=== PATIENT | female | born 1935 | race Caucasian/White ===

== ENCOUNTER 2018-05-29 04:29 | Inpatient (IN) | payer BC, MEDICARE ==
[~2018-05-29] VITALS: Ht 154.9 cm; Wt 64.0 kg
[2018-05-29] MEDS ORDERED: HYDR-963 PO (05:59)
[2018-05-29] MEDS ORDERED: OMEP20TA63 PO (05:59)
[2018-05-29] MEDS ORDERED: MIRT30TA PO (05:59)
[2018-05-29] MEDS ORDERED: RISP0.5T24 PO (05:59)
[2018-05-29] MEDS ORDERED: CYAN10005 PO (05:59)
[2018-05-29] MEDS ORDERED: LEVE500T6 PO (05:59)
[2018-05-29] MEDS ORDERED: DICY20TA3 PO (05:59)
[2018-05-29] MEDS ORDERED: QUET100T4 PO (05:59)
[2018-05-29] MEDS ORDERED: ASPI81TA50 PO (05:59)
[2018-05-29] MEDS ORDERED: AMLO2.5T2 PO (05:59)
[2018-05-29] MEDS ORDERED: SERT100T PO (05:59)
[2018-05-29] MEDS ORDERED: ISOS60TA2 PO (05:59)
[2018-05-29] MEDS ORDERED: QUET50TA5 PO (05:59)
[2018-05-29] MEDS ORDERED: TOLT2CAP PO (05:59)
[2018-05-29] MEDS ORDERED: DOCU-109 PO (05:59)
[2018-05-29] MEDS ORDERED: FURO-69 PO (05:59)
[2018-05-29] MEDS ORDERED: LISI40TA PO (05:59)
[2018-05-29] MEDS ORDERED: FERR325T14 PO (05:59)
[2018-05-29] MEDS ORDERED: CARV12.52 PO (05:59)
[2018-05-29] MEDS ORDERED: POTA20TA82 PO (05:59)
[2018-05-29] MEDS ORDERED: ATOR40TA59 PO (05:59)
[2018-05-29] MEDS ORDERED: MAGNESIUM HYDROXIDE 2,400 MG/30 ML ORAL.SUSP. PO PRN (06:00)
[2018-05-29] MEDS ORDERED: METHYL SALICYLATE/MENTHOL TOPICAL OINTMENT 29GM TUBE. TP PRN (06:00)
[2018-05-29] MEDS ORDERED: MAG HYDROX/AL HYDROX/SIMETH 30 ML ORAL.SUSP PO PRN ×2 (06:00→07:15)
[2018-05-29 06:09] VITALS: BP 159/78
[2018-05-29] MEDS ORDERED: PRED-220 PO (06:10)
[2018-05-29] MEDS ORDERED: NITR0.4T22 SL (06:10)
[2018-05-29] MEDS ORDERED: IPRA3AMP29 NEB (06:10)
[2018-05-29] MEDS ORDERED: ACET325T9 PO (06:10)
[2018-05-29] MEDS ORDERED: BENZ100C PO (06:10)
[2018-05-29] MEDS ORDERED: ALBU2.5V14 NEB (06:10)
[2018-05-29] MEDS ORDERED: MAG355OR22 PO (06:10)
[2018-05-29] MEDS ORDERED: MAGN400O7 PO (06:10)
[2018-05-29] MEDS ORDERED: HYDR-971 PO (06:10)
[2018-05-29] MEDS ORDERED: GUAI600T47 PO (06:10)
[2018-05-29] MEDS ORDERED: ALBUTEROL SULFATE 1.25 MG NEB PRN (07:15)
[2018-05-29] MEDS ORDERED: BENZONATATE 100 MG CAPSULE. PO PRN (07:15)
[2018-05-29] MEDS ORDERED: NITROGLYCERIN SUBLINGUAL 0.4 MG BOTTLE OF 25. SL PRN (07:15)
[2018-05-29] MEDS ORDERED: IPRATRPIUM/ALBUTEROL 0.5/2.5MG 3 ML NEBU. NEB PRN (07:15)
[2018-05-29] MEDS ORDERED: ACETAMINOPHEN 325 MG TABLET PO PRN (07:15)
[2018-05-29 07:25] LABS: BASO % 1 % (0-3); EOS # 0.1 x10^3/uL (0.0-0.7); EOS % 1 % (0-3); HEMATOCRIT 34.9 % (36.0-47.0); HEMOGLOBIN 11.6 g/dL (12.0-15.5); LYMPH # 0.8 x10^3/uL (1.0-4.8); LYMPH % 12 % (24-48); MEAN CORPUSCULAR HEMOGLOBIN 29 pg (25-35); MEAN CORPUSCULAR HGB CONC 33 g/dL (31-37); MEAN CORPUSCULAR VOLUME 87 fL (79-100); MONO # 0.6 x10^3/uL (0.0-1.1); MONO % 9 % (0-9); NEUT # 4.7 x10^3uL (1.8-7.7); NEUT % 77 % (31-73); PLATELET COUNT 98 x10^3/uL (140-400); RED BLOOD COUNT 4.01 x10^6/uL (3.50-5.40); RED CELL DISTRIBUTION WIDTH 15.2 % (11.5-14.5); WHITE BLOOD COUNT 6.2 x10^3/uL (4.0-11.0)
[2018-05-29 07:41] LABS: ALBUMIN 3.1 g/dL (3.4-5.0); ALBUMIN/GLOBULIN RATIO 0.9 (1.0-1.7); CALCIUM 9.3 mg/dL (8.5-10.1); CREATININE 0.9 mg/dL (0.6-1.0); GFR 60.1; MAGNESIUM 1.8 mg/dL (1.8-2.4); POTASSIUM 3.9 mmol/L (3.5-5.1); TOTAL BILIRUBIN 0.3 mg/dL (0.2-1.0); TOTAL PROTEIN 6.7 g/dL (6.4-8.2)
[2018-05-29] MEDS ORDERED: ALBUTEROL SULFATE 2.5 MG/3 ML NEBU. NEB PRN (07:45)
[2018-05-29] MEDS: predniSONE 10 MG TABLET PO SCH (10:55)
[2018-05-29] MEDS: ASPIRIN ENTERIC COATED 81 MG TABLET.DR. PO SCH (10:55)
[2018-05-29] MEDS: QUEtiapine 50 MG TABLET. PO SCH ×2 (10:55→13:37)
[2018-05-29] MEDS: PANTOPRAZOLE 40 MG TABLET. PO SCH (10:56)
[2018-05-29] MEDS: OXYBUTYNIN CHLORIDE 5 MG TABLET PO SCH ×3 (10:56→20:32)
[2018-05-29] MEDS: amLODIPine BESYLATE 2.5 MG TABLET PO SCH (10:56)
[2018-05-29] MEDS: SERTRALINE 100 MG TABLET. PO SCH (10:56)
[2018-05-29] MEDS: DOCUSATE SODIUM 100 MG CAPSULE PO SCH ×2 (10:56→20:32)
[2018-05-29] MEDS: levETIRAcetam 500 MG TABLET PO SCH ×2 (10:56→20:33)
[2018-05-29] MEDS: LISINOPRIL 20 MG TABLET PO SCH (10:57)
[2018-05-29] MEDS: ISOSORBIDE MONONITRATE ER 30 MG TAB.ER.24H PO SCH (10:57)
[2018-05-29] MEDS: DICYCLOMINE HCL 20 MG TABLET PO SCH (10:58)
[2018-05-29] MEDS: FUROSEMIDE 20 MG TABLET PO SCH ×2 (10:58→20:32)
[2018-05-29] MEDS: CARVEDILOL 12.5 MG TABLET PO SCH ×2 (10:58→17:04)
[2018-05-29] MEDS: POTASSIUM CHLORIDE 20 MEQ TABLET.ER. PO SCH ×2 (10:58→17:04)
[2018-05-29] MEDS: CYANOCOBALAMIN (VITAMIN B-12) 1,000 MCG TABLET. PO SCH (10:58)
[2018-05-29] MEDS: FERROUS SULFATE 325 MG TABLET. PO SCH ×2 (10:58→20:32)
[2018-05-29] MEDS: HYDROcodone/APAP 10/325 1 TAB TABLET PO SCH ×2 (10:59→20:33)
[2018-05-29 13:32] LABS: THYROID STIM HORMONE (TSH) 1.663 uIU/mL (0.358-3.740)
[2018-05-29 16:36] VITALS: BP 108/63
[2018-05-29 19:12] LABS: THYROXINE 3.7 ug/dL (4.5-12.0)
[2018-05-29 19:41] VITALS: BP 110/58
[2018-05-29] MEDS: QUEtiapine 100 MG TABLET. PO SCH (20:32)
[2018-05-29] MEDS: ATORVASTATIN CALCIUM 20 MG TABLET PO SCH (20:33)
[2018-05-29] MEDS: MIRTAZAPINE 30 MG TABLET PO SCH (20:34)
--- NOTE | 2018-05-29 20:44 | PDOC ---
Exam Note: Alek Note: Please also refer to the separate dictated note~for this date of service dictated separately.~Patient seen individually. Discussed the patient with Nursing staff reviewed the chart.~Reviewed interim history and current functioning. Reviewed vital signs,~Labs/ Radiology~and current medications noted below. Continue current treatment with the changes noted in the dictated addendum note Assessment: Vital Signs: Vital Signs Date Time Temp Pulse Resp B/P (MAP) Pulse Ox O2 Delivery O2 Flow Rate FiO2 05/29/18 20:33 16 91 05/29/18 19:41 97.8 74 110/58 (75) Room Air Labs: Laboratory Tests Test 05/29/18 07:00 White Blood Count 6.2 x10^3/uL (4.0-11.0) Red Blood Count 4.01 x10^6/uL (3.50-5.40) Hemoglobin 11.6 g/dL (12.0-15.5) L Hematocrit 34.9 % (36.0-47.0) L Mean Corpuscular Volume 87 fL (79-100) Mean Corpuscular Hemoglobin 29 pg (25-35) Mean Corpuscular Hemoglobin Concent 33 g/dL (31-37) Red Cell Distribution Width 15.2 % (11.5-14.5) H Platelet Count 98 x10^3/uL (140-400) L Neutrophils (%) (Auto) 77 % (31-73) H Lymphocytes (%) (Auto) 12 % (24-48) L Monocytes (%) (Auto) 9 % (0-9) Eosinophils (%) (Auto) 1 % (0-3) Basophils (%) (Auto) 1 % (0-3) Neutrophils # (Auto) 4.7 x10^3uL (1.8-7.7) Lymphocytes # (Auto) 0.8 x10^3/uL (1.0-4.8) L Monocytes # (Auto) 0.6 x10^3/uL (0.0-1.1) Eosinophils # (Auto) 0.1 x10^3/uL (0.0-0.7) Basophils # (Auto) 0.0 x10^3/uL (0.0-0.2) Sodium Level 141 mmol/L (136-145) Potassium Level 3.9 mmol/L (3.5-5.1) Chloride Level 106 mmol/L (98-107) Carbon Dioxide Level 25 mmol/L (21-32) Anion Gap 10 (6-14) Blood Urea Nitrogen 19 mg/dL (7-20) Creatinine 0.9 mg/dL (0.6-1.0) Estimated GFR (Cockcroft-Gault) 60.1 BUN/Creatinine Ratio 21 (6-20) H Glucose Level 100 mg/dL (70-99) H Calcium Level 9.3 mg/dL (8.5-10.1) Magnesium Level 1.8 mg/dL (1.8-2.4) Iron Level 47 ug/dL (50-170) L Total Iron Binding Capacity 235 ug/dL (250-450) L Iron Saturation 20 % (15-34) Total Bilirubin 0.3 mg/dL (0.2-1.0) Aspartate Amino Transferase (AST) 13 U/L (15-37) L Alanine Aminotransferase (ALT) 16 U/L (14-59) Alkaline Phosphatase 106 U/L (46-116) Total Protein 6.7 g/dL (6.4-8.2) Albumin 3.1 g/dL (3.4-5.0) L Albumin/Globulin Ratio 0.9 (1.0-1.7) L Triglycerides Level 124 mg/dL (0-150) Cholesterol Level 173 mg/dL (0-200) LDL Cholesterol, Calculated 76 mg/dL (0-100) VLDL Cholesterol, Calculated 24 mg/dL (0-40) Non-HDL Cholesterol Calculated 100 mg/dL (0-129) HDL Cholesterol 73 mg/dL (40-60) H Cholesterol/HDL Ratio 2.0 Vitamin B12 Level 835 pg/mL (247-911) 25-Hydroxy Vitamin D Total 13.2 ng/mL (30-100) L Thyroid Stimulating Hormone (TSH) 1.663 uIU/mL (0.358-3.740) Thyroxine (T4) 3.7 ug/dL (4.5-12.0) L Total Triiodothyronine (TT3) 87 ng/dL (71-180) Treponema pallidum Antibody Nonreactive (Nonreactive) Current Medications: Meds: Current Medications Acetaminophen (Tylenol) 650 mg PRN Q6HRS PRN PO PAIN / TEMP; Start 05/29/18 at 06:00 Multi-Ingredient Ointment (Analgesic [place]) 1 abel PRN QID PRN TP MUSCLE PAIN; Start 05/29/18 at 06:00 Al Hydroxide/Mg Hydroxide (Mylanta Plus Xs) 15 ml PRN AFTMEALHC PRN PO DYSPEPSIA; Start 05/29/18 at 06:00; Status Cancel Magnesium Hydroxide (Milk Of Magnesia) 2,400 mg PRN QHS PRN PO CONSTIPATION; Start 05/29/18 at 06:00; Stop 05/29/18 at 07:16; Status DC Mirtazapine (Remeron) 30 mg QHS PO Last administered on 05/29/18at 20:34; Start 05/29/18 at 21:00 Sertraline HCl (Zoloft) 200 mg DAILY PO Last administered on 05/29/18at 10:56; Start 05/29/18 at 09:00 Quetiapine Fumarate (SEROquel) 50 mg [id number] PO Last administered on 05/29/18at 13:37; Start 05/29/18 at 09:00 Quetiapine Fumarate (SEROquel) 100 mg QHS PO Last administered on 05/29/18at 20 :32; Start 05/29/18 at 21:00 Risperidone (RisperDAL) 0.5 mg QHS PO Last administered on 05/29/18at 20:32; Start 05/29/18 at 21:00 Acetaminophen (Tylenol) 650 mg PRN Q6HRS PRN PO PAIN; Start 05/29/18 at 07:15 ; Status Cancel Cyanocobalamin (Vitamin B-12) 1,000 mcg DAILY PO Last administered on at 10:58; Start 05/29/18 at 09:00 Ferrous Sulfate (Feosol) 325 mg BID PO Last administered on 05/29/18 20:32; Start 05/29/18 at 09:00 Furosemide (Lasix) 20 mg BID PO Last administered on 05/29/18at 20:32; Start 05/29/18 at 09:00 Guaifenesin (Mucinex Er) 600 mg PRN BID PRN PO COUGH; Start 05/29/18 at 07:15 Albuterol/ Ipratropium (Duoneb) 3 ml PRN Q4HRS PRN NEB SHORTNESS OF BREATH; Start 05/29/18 at 07:15 Magnesium Hydroxide (Milk Of Magnesia) 800 mg PRN Q6HRS PRN PO CONSTIPATION; Start 05/29/18 at 07:15 Nitroglycerin (Nitrostat) 0.4 mg PRN Q5MIN PRN SL CHEST PAIN; Start 05/29/18 at 07:15 Prednisone (Prednisone) 10 mg DAILY PO Last administered on 05/29/18at 10:55; Start 05/29/18 at 09:00 Non-Formulary Medication (Albuterol Sulfate (Albuterol Sulfate Conc Neb Soln)) 1.25 mg PRN Q6HRS PRN NEB SHORTNESS OF BREATH; Start 05/29/18 at 07:15; Status UNV Amlodipine Besylate (Norvasc) 2.5 mg DAILY PO Last administered on 05/29/18at 10:56; Start 05/29/18 at 09:00 Aspirin (Aspirin Enteric Coated) 81 mg [id number] PO Last administered on 05/29at 10:55; Start 05/29/18 at 08:00 Atorvastatin Calcium (Lipitor) 40 mg QHS PO Last administered on 05/29/18at 20: 33; Start 05/29/18 at 21:00 Benzonatate (Tessalon Perle) 200 mg PRN TID PRN PO COUGH; Start 05/29/18 at 07 :15 Carvedilol (Coreg) 12.5 mg BIDWMEALS PO Last administered on 05/29/18at 17:04; Start 05/29/18 at 08:00 Dicyclomine HCl (Bentyl) 20 mg DAILY PO Last administered on 05/29/18at 10:58; Start 05/29/18 at 09:00 Docusate Sodium (Colace) 100 mg BID PO Last administered on 05/29/18at 20:32; Start 05/29/18 at 09:00 Acetaminophen/ Hydrocodone Bitart (Lortab 10/325) 1 tab BID PO Last administered on 05/29/18at 20:33; Start 05/29/18 at 09:00 Acetaminophen/ Hydrocodone Bitart (Lortab 5/325) 1 tab PRN BID PRN PO PAIN; Start 05/29/18 at 07:30 Isosorbide Mononitrate (Imdur) 60 mg DAILY PO Last administered on 05/29/18at 10:57; Start 05/29/18 at 09:00 Levetiracetam (Keppra) 500 mg BID PO Last administered on 05/29/18at 20:33; Start 05/29/18 at 09:00 Lisinopril (Prinivil) 40 mg DAILY PO Last administered on 05/29/18at 10:57; Start 05/29/18 at 09:00 Al Hydroxide/Mg Hydroxide (Mylanta Plus Xs) 30 ml PRN Q2HR PRN PO INDIGESTION; Start 05/29/18 at 07:15 Pantoprazole Sodium (Protonix) 40 mg DAILYAC PO Last administered on at 10:56; Start 05/29/18 at 07:30 Potassium Chloride (Klor-Con) 20 meq BIDWMEALS PO Last administered on at 17:04; Start 05/29/18 at 08:00 Oxybutynin Chloride (Ditropan) 5 mg [id number] PO Last administered on 05/29/18at 20:32; Start 05/29/18 at 09:00 Albuterol Sulfate (Ventolin) 1.25 mg PRN Q6HRS PRN NEB SHORTNESS OF BREATH; Start 05/29/18 at 07:45 Vitamin D (Vitamin D3) 50,000 unit WEEKLY PO ; Start 05/30/18 at 09:00 Active Scripts Active Reported Albuterol Sulfate Conc Neb Soln (Albuterol Sulfate) 2.5 Mg/0.5 Ml Vial.neb 1.25 Mg NEB PRN Q6HRS PRN [place] 5-325 Tablet (Hydrocodone Bit/Acetaminophen) 1 Each Tablet 1 Tab PO PRN BID PRN Duoneb 0.5-3(2.5) Mg/3 Ml (Albuterol/Ipratropium) 3 Ml Ampul.neb 3 Ml NEB PRN Q4HRS PRN Tessalon Perle (Benzonatate) 100 Mg Capsule 200 Mg PO PRN TID PRN Mucinex (Guaifenesin) 600 Mg Tablet.er 600 Mg PO PRN BID PRN Antacid Liquid (Mag Hydrox/Al Hydrox/Simeth) 355 Ml Oral.susp 30 Ml PO PRN Q2HR PRN Milk Of Magnesia (Magnesium Hydroxide) 400 Mg/5 Ml Oral.susp 10 Ml PO PRN Q6HRS PRN Tylenol (Acetaminophen) 325 Mg Tablet 1-2 Tab PO PRN Q6HRS PRN NITROGLYCERIN SubLingual (Nitroglycerin) 0.4 Mg Tab.subl 0.4 Mg SL PRN Q5MIN PRN do not exceed 3 tabs per episode Prednisone 10 Mg Tablet 10 Mg PO DAILY Potassium Chloride 20 Meq Tablet.er 20 Meq PO BID Lasix (Furosemide) 20 Mg Tablet 20 Mg PO BID Seroquel (Quetiapine Fumarate) 100 Mg Tablet 100 Mg PO QHS Risperdal (Risperidone) 0.5 Mg Tablet 0.5 Mg PO QHS Isosorbide Mononitrate Er (Isosorbide Mononitrate) 60 Mg Tab.er.24h 60 Mg PO DAILY Norvasc (Amlodipine Besylate) 2.5 Mg Tablet 2.5 Mg PO DAILY Seroquel (Quetiapine Fumarate) 50 Mg Tablet 50 Mg PO BID Prilosec Otc (Omeprazole Magnesium) 20 Mg Tablet.dr 20 Mg PO DAILY [place] 10-325 Tablet (Hydrocodone Bit/Acetaminophen) 1 Each Tablet 1 Tab PO BID Levetiracetam 500 Mg Tablet 500 Mg PO BID Colace (Docusate Sodium) 100 Mg Capsule 100 Mg PO BID Remeron (Mirtazapine) 30 Mg Tablet 30 Mg PO QHS Carvedilol 12.5 Mg Tablet 12.5 Mg PO BID Vitamin B-12 (Cyanocobalamin (Vitamin B-12)) 1,000 Mcg Tablet 1,000 Mcg PO DAILY Lisinopril 40 Mg Tablet 40 Mg PO DAILY Ferrous Sulfate 325 Mg Tablet 325 Mg PO BID Atorvastatin Calcium 40 Mg Tablet 40 Mg PO QHS Detrol La (Tolterodine Tartrate) 2 Mg Cap.er.24h 2 Mg PO BID Zoloft (Sertraline Hcl) 100 Mg Tablet 200 Mg PO DAILY Aspir-Low (Aspirin) 81 Mg Tablet.dr 81 Mg PO DAILY Dicyclomine Hcl 20 Mg Tablet 20 Mg PO DAILY I have reviewed the current psychotropics carefully including drug interactions. Risk benefit ratio favors no change other than as noted in my dictated progress note. Diagnosis: Problems: (1) Anxiety disorder (2) Dementia, vascular, with delusions (3) Dementia, vascular, with depression (4) Major depressive disorder, recurrent episode JUAN MILLER MD May 29, 2018 20:44
[2018-05-29] MEDS ORDERED: risperiDONE 0.5 MG TABLET. PO SCH (21:00)
--- NOTE | 2018-05-29 22:12 | HP ---
ADMIT DATE: 05/29/2018 This note covers elements not covered in my initial note on 05/29/2018. IDENTIFYING DATA: The patient is an 82-year-old female, referred to us from the Emergency Room at [facility] where she presented from the [facility] after she attempted suicide with stabbing herself in the neck with a fork and received a significant gash wound. She has been depressed. believes her is trying to kill her since he is unable to have her home because she relates he states she cannot take care of her status post cerebrovascular accident. She has been at the facility for about 15 months. States this is no way to live and decided to end her life. This prompted her being transferred to the Emergency Room and then to us for inpatient psychiatric stabilization. CHIEF COMPLAINT: "Yes, I've been depressed. I need to go home." HISTORY OF PRESENT ILLNESS: The patient has a history of worsening symptoms of depression. She admits to feeling hopeless, helpless, worthless, believes there is no point in living because she cannot be at home since her cannot take care of her status post cerebrovascular accident. She has had some sleep and appetite changes, appeared somewhat paranoid at times, believes her is trying to kill her and then she attempted to stab herself in the neck with a fork. No active homicidal ideation. No clear history of bipolar disorder. She has had some short-term memory deficits, but reasonably cognitively intact. PAST PSYCHIATRIC HISTORY: As above. MEDICAL HISTORY: Positive for COPD, hypertension, status post cerebrovascular accident. Accu-Cheks: None. CODE STATUS: DNR. ALLERGIES: PHENERGAN AND ADHESIVE TAPE. Diet is regular. Ambulates in wheelchair, with times to assist. Urinalysis negative prior to admission. CURRENT PSYCHOTROPICS: Zoloft 100 mg a day, Remeron 30 mg at bedtime, Seroquel 50 b.i.d., Risperdal 0.5 mg at bedtime, Seroquel 100 mg at bedtime. FAMILY HISTORY: Noncontributory. SOCIAL HISTORY: No alcohol, drug abuse, physical, sexual or elder abuse history is noted. She is not known to be a perpetrator. She states she worked in a [employer] for about 38 years. Never smoked, never had any alcohol, has 4 children, 2 girls and 2 boys. REACTION TO HOSPITALIZATION: The patient accepting of it. ASSETS: Stable living at the facility, reasonably cognitively intact, supportive . MENTAL STATUS EXAM: The patient was seen individually on the evening of 05/29/2018. She is oriented to herself, knew it was 05/2018, but believed the date was 16. She knew it was a . She knew the president was president Indira, able to do one step in serial sevens and then no more, spelled world forward with no error, backward with 3 errors. Speech coherent, abstraction fair, computation is noted to be impaired. Mood is depressed, anxious. Affect is mood congruent. No active suicidal or homicidal ideation. LABORATORY DATA: Reviewed. IMPRESSION: Major depressive disorder, recurrent, severe; anxiety disorder, unspecified; major neurocognitive disorder, Alzheimer, vascular with depression, delusions. Rest as above. PLAN: Admit to Geropsychiatry Unit at [facility]. I will see the patient daily individually from a psychiatric standpoint, medical followup with Dr. Rouse/Dr. Marsh. Continue the patient on her current psychotropics. Consider tapering off the Risperdal given her status post cerebrovascular accident status and to avoid using 2 atypical antipsychotics, may consider changing Zoloft to Cymbalta. We will make further decisions post baseline assessment. Estimated length of stay is 10-12 days. DISPOSITION: Back to [facility]. JUAN MILLER MD DR: DELILAH/nathan JOB#: [id number] / [id number]
--- NOTE | 2018-05-29 22:29 | RAD ---
EXAM: Frontal pelvis with bilateral two-view hip. HISTORY: Fall. COMPARISON: None. FINDINGS: There are limitations from overpenetration. Osteopenia is at least mild. No displaced pelvic fractures are identified. No femoral fractures seen bilaterally. The joint spaces of both hips are mildly narrowed. Alignment is maintained. There are mild degenerative changes of the lower lumbar spine. Cholecystectomy clips are noted. IMPRESSION: 1. No fracture. 2. Mild bilateral hip osteoarthritis. Electronically signed by: Jaydon Ashraf MD (05/29/2018 10:27 PM) [facility]
[2018-05-30 02:08] LABS: HEMOGLOBIN A1C 5.2 % (4.8-5.6)
[2018-05-30] MEDS: ACETAMINOPHEN 325 MG TABLET PO PRN (05:37)
[2018-05-30 06:06] VITALS: BP 131/68
[2018-05-30] MEDS: SERTRALINE 100 MG TABLET. PO SCH (08:11)
[2018-05-30] MEDS: amLODIPine BESYLATE 2.5 MG TABLET PO SCH (08:11)
[2018-05-30] MEDS: levETIRAcetam 500 MG TABLET PO SCH ×2 (08:11→20:19)
[2018-05-30] MEDS: predniSONE 10 MG TABLET PO SCH (08:11)
[2018-05-30] MEDS: CYANOCOBALAMIN (VITAMIN B-12) 1,000 MCG TABLET. PO SCH (08:11)
[2018-05-30] MEDS: POTASSIUM CHLORIDE 20 MEQ TABLET.ER. PO SCH ×2 (08:11→18:28)
[2018-05-30] MEDS: FUROSEMIDE 20 MG TABLET PO SCH ×2 (08:11→20:20)
[2018-05-30] MEDS: PANTOPRAZOLE 40 MG TABLET. PO SCH (08:12)
[2018-05-30] MEDS: DOCUSATE SODIUM 100 MG CAPSULE PO SCH ×2 (08:12→20:19)
[2018-05-30] MEDS: OXYBUTYNIN CHLORIDE 5 MG TABLET PO SCH ×3 (08:12→20:18)
[2018-05-30] MEDS: DICYCLOMINE HCL 20 MG TABLET PO SCH (08:12)
[2018-05-30] MEDS: QUEtiapine 100 MG TABLET. PO SCH ×2 (08:12→20:20)
[2018-05-30] MEDS: ASPIRIN ENTERIC COATED 81 MG TABLET.DR. PO SCH (08:12)
[2018-05-30] MEDS: CARVEDILOL 12.5 MG TABLET PO SCH ×2 (08:12→18:29)
[2018-05-30] MEDS: HYDROcodone/APAP 10/325 1 TAB TABLET PO SCH ×2 (08:13→20:19)
[2018-05-30] MEDS: ISOSORBIDE MONONITRATE ER 30 MG TAB.ER.24H PO SCH (08:13)
[2018-05-30] MEDS: FERROUS SULFATE 325 MG TABLET. PO SCH ×2 (08:13→20:19)
[2018-05-30] MEDS: LISINOPRIL 20 MG TABLET PO SCH (08:16)
[2018-05-30] MEDS: QUEtiapine 50 MG TABLET. PO SCH ×2 (08:16→14:18)
[2018-05-30] MEDS ORDERED: CHOLECALCIFEROL (VITAMIN D3) 50,000 UNIT CAPSULE PO SCH (09:00)
[2018-05-30 13:09] LABS: BACTERIA,URINE MANY /HPF (0-FEW); BILIRUBIN,URINE NEG (NEG); CLARITY,URINE CLOUDY; COLOR,URINE YELLOW; GLUCOSE,URINE NEG (NEG); NITRITE,URINE POS (NEG); SQUAMOUS EPITHELIAL CELL,UR FEW /LPF; UROBILINOGEN,URINE 0.2 mg/dL (0.2 mg/dL); WBC,URINE >40 /HPF (0-4)
[2018-05-30] MEDS: HYDROcodone/APAP 5/325MG 1 TAB TABLET PO PRN (14:17)
--- NOTE | 2018-05-30 14:26 | PDOC2 ---
CONSULT Date of Admission DATE: 05/29/18 Reason for Consult: Medical management Referring Physician: Dr Boland Chief Complaint Suicidal ideation Source: Caregiver, Chart review, Patient History of Present Illness: Patient is an 82-year-old female admitted to the [facility] unit directly from [place] emergency Department for worsening dementia with depression and suicide attempt. Records indicate that for the past month patient has become more depressed and has vocalized that she thinks her is trying to kill her. On the day of admission patient reportedly tried to stab herself in the neck with a fork. She was medically cleared to the emergency department and admitted to [facility] unit for further evaluation and treatment. I find the patient sleeping in her bed, she rouses easily to verbal stimuli. She is alert and oriented 3 and says that she has been very depressed since her second stroke. 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 She says that he said some very mean things which were very hurtful to her including that he said he should kill her. She is very emotional and becomes tearful while discussing this, stating that if her spouse will have her back she has nothing left to live for. She does also complain of some left anterior rib pain. She says she fell and hit that area on a counter a few weeks ago and she's had persistent left-sided rib pain since. She says no imaging has been done we will check a rib series. Denies trouble breathing, cough, or hemoptysis. Last night the patient slid from her wheelchair to her buttock at approximately 7:30 PM, she was complaining of some hip pain however bilateral hips and pelvis imaging were negative. [facility] staff feels the patient "placed herself on the floor " acting out. Medically she has history of COPD, hypertension, and CVA as stated. Her labs fairly unremarkable, hemoglobin 11.6 normocytic, vitamin D level low at 13.2 will initiate supplementation, abnormal iron studies will check a ferritin. Urine was grossly positive for infection will treat and await culture results. Cardiovascular: HTN Pulmonary: COPD CENTRAL NERVOUS SYSTEM: CVA (2, left hemiparesis) Psych: Depression (dementia, suicidal ideation, paranoid, delusional) Past Surgical History: No pertinent history Smoke: No ALCOHOL: none Drugs: None Current Medications Current Medications Acetaminophen (Tylenol) 650 mg PRN Q6HRS PRN PO PAIN / TEMP Last administered on 05/30/18at 05:37; Start 05/29/18 at 06:00 Multi-Ingredient Ointment (Analgesic [place]) 1 abel PRN QID PRN TP MUSCLE PAIN; Start 05/29/18 at 06:00 Al Hydroxide/Mg Hydroxide (Mylanta Plus Xs) 15 ml PRN AFTMEALHC PRN PO DYSPEPSIA; Start 05/29/18 at 06:00; Status Cancel Magnesium Hydroxide (Milk Of Magnesia) 2,400 mg PRN QHS PRN PO CONSTIPATION; Start 05/29/18 at 06:00; Stop 05/29/18 at 07:16; Status DC Mirtazapine (Remeron) 30 mg QHS PO Last administered on 05/29/18at 20:34; Start 05/29/18 at 21:00 Sertraline HCl (Zoloft) 200 mg DAILY PO Last administered on 05/30/18at 08:11; Start 05/29/18 at 09:00 Quetiapine Fumarate (SEROquel) 50 mg [id number] PO Last administered on 05/30/18at 08:16; Start 05/29/18 at 09:00 Quetiapine Fumarate (SEROquel) 100 mg QHS PO Last administered on 05/29/18at 20 :32; Start 05/29/18 at 21:00 Risperidone (RisperDAL) 0.5 mg QHS PO Last administered on 05/29/18at 20:32; Start 05/29/18 at 21:00 Acetaminophen (Tylenol) 650 mg PRN Q6HRS PRN PO PAIN; Start 05/29/18 at 07:15 ; Status Cancel Cyanocobalamin (Vitamin B-12) 1,000 mcg DAILY PO Last administered on at 08:11; Start 05/29/18 at 09:00 Ferrous Sulfate (Feosol) 325 mg BID PO Last administered on 05/30/18at 08:13; Start 05/29/18 at 09:00 Furosemide (Lasix) 20 mg BID PO Last administered on 05/30/18at 08:11; Start 05/29/18 at 09:00 Guaifenesin (Mucinex Er) 600 mg PRN BID PRN PO COUGH; Start 05/29/18 at 07:15 Albuterol/ Ipratropium (Duoneb) 3 ml PRN Q4HRS PRN NEB SHORTNESS OF BREATH; Start 05/29/18 at 07:15 Magnesium Hydroxide (Milk Of Magnesia) 800 mg PRN Q6HRS PRN PO CONSTIPATION; Start 05/29/18 at 07:15 Nitroglycerin (Nitrostat) 0.4 mg PRN Q5MIN PRN SL CHEST PAIN; Start 05/29/18 at 07:15 Prednisone (Prednisone) 10 mg DAILY PO Last administered on 05/30/18 08:11; Start 05/29/18 at 09:00 Non-Formulary Medication (Albuterol Sulfate (Albuterol Sulfate Conc Neb Soln)) 1.25 mg PRN Q6HRS PRN NEB SHORTNESS OF BREATH; Start 05/29/18 at 07:15; Status UNV Amlodipine Besylate (Norvasc) 2.5 mg DAILY PO Last administered on 05/30/18at 08:11; Start 05/29/18 at 09:00 Aspirin (Aspirin Enteric Coated) 81 mg [id number] PO Last administered on 05/30at 08:12; Start 05/29/18 at 08:00 Atorvastatin Calcium (Lipitor) 40 mg QHS PO Last administered on 05/29/18at 20: 33; Start 05/29/18 at 21:00 Benzonatate (Tessalon Perle) 200 mg PRN TID PRN PO COUGH; Start 05/29/18 at 07 :15 Carvedilol (Coreg) 12.5 mg BIDWMEALS PO Last administered on 05/30/18at 08:12; Start 05/29/18 at 08:00 Dicyclomine HCl (Bentyl) 20 mg DAILY PO Last administered on 05/30/18at 08:12; Start 05/29/18 at 09:00 Docusate Sodium (Colace) 100 mg BID PO Last administered on 05/30/18at 08:12; Start 05/29/18 at 09:00 Acetaminophen/ Hydrocodone Bitart (Lortab 10/325) 1 tab BID PO Last administered on 05/30/18at 08:13; Start 05/29/18 at 09:00 Acetaminophen/ Hydrocodone Bitart (Lortab 5/325) 1 tab PRN BID PRN PO PAIN; Start 05/29/18 at 07:30 Isosorbide Mononitrate (Imdur) 60 mg DAILY PO Last administered on 05/30/18at 08:13; Start 05/29/18 at 09:00 Levetiracetam (Keppra) 500 mg BID PO Last administered on 05/30/18at 08:11; Start 05/29/18 at 09:00 Lisinopril (Prinivil) 40 mg DAILY PO Last administered on 05/30/18at 08:16; Start 05/29/18 at 09:00 Al Hydroxide/Mg Hydroxide (Mylanta Plus Xs) 30 ml PRN Q2HR PRN PO INDIGESTION; Start 05/29/18 at 07:15 Pantoprazole Sodium (Protonix) 40 mg DAILYAC PO Last administered on at 08:12; Start 05/29/18 at 07:30 Potassium Chloride (Klor-Con) 20 meq BIDWMEALS PO Last administered on at 08:11; Start 05/29/18 at 08:00 Oxybutynin Chloride (Ditropan) 5 mg [id number] PO Last administered on 05/30/18at 08:12; Start 05/29/18 at 09:00 Albuterol Sulfate (Ventolin) 1.25 mg PRN Q6HRS PRN NEB SHORTNESS OF BREATH; Start 05/29/18 at 07:45 Vitamin D (Vitamin D3) 50,000 unit WEEKLY PO Last administered on 05/30/18at 08 :16; Start 05/30/18 at 09:00 Active Scripts Active Reported Albuterol Sulfate Conc Neb Soln (Albuterol Sulfate) 2.5 Mg/0.5 Ml Vial.neb 1.25 Mg NEB PRN Q6HRS PRN [place] 5-325 Tablet (Hydrocodone Bit/Acetaminophen) 1 Each Tablet 1 Tab PO PRN BID PRN Duoneb 0.5-3(2.5) Mg/3 Ml (Albuterol/Ipratropium) 3 Ml Ampul.neb 3 Ml NEB PRN Q4HRS PRN Tessalon Perle (Benzonatate) 100 Mg Capsule 200 Mg PO PRN TID PRN Mucinex (Guaifenesin) 600 Mg Tablet.er 600 Mg PO PRN BID PRN Antacid Liquid (Mag Hydrox/Al Hydrox/Simeth) 355 Ml Oral.susp 30 Ml PO PRN Q2HR PRN Milk Of Magnesia (Magnesium Hydroxide) 400 Mg/5 Ml Oral.susp 10 Ml PO PRN Q6HRS PRN Tylenol (Acetaminophen) 325 Mg Tablet 1-2 Tab PO PRN Q6HRS PRN NITROGLYCERIN SubLingual (Nitroglycerin) 0.4 Mg Tab.subl 0.4 Mg SL PRN Q5MIN PRN do not exceed 3 tabs per episode Prednisone 10 Mg Tablet 10 Mg PO DAILY Potassium Chloride 20 Meq Tablet.er 20 Meq PO BID Lasix (Furosemide) 20 Mg Tablet 20 Mg PO BID Seroquel (Quetiapine Fumarate) 100 Mg Tablet 100 Mg PO QHS Risperdal (Risperidone) 0.5 Mg Tablet 0.5 Mg PO QHS Isosorbide Mononitrate Er (Isosorbide Mononitrate) 60 Mg Tab.er.24h 60 Mg PO DAILY Norvasc (Amlodipine Besylate) 2.5 Mg Tablet 2.5 Mg PO DAILY Seroquel (Quetiapine Fumarate) 50 Mg Tablet 50 Mg PO BID Prilosec Otc (Omeprazole Magnesium) 20 Mg Tablet.dr 20 Mg PO DAILY [place] 10-325 Tablet (Hydrocodone Bit/Acetaminophen) 1 Each Tablet 1 Tab PO BID Levetiracetam 500 Mg Tablet 500 Mg PO BID Colace (Docusate Sodium) 100 Mg Capsule 100 Mg PO BID Remeron (Mirtazapine) 30 Mg Tablet 30 Mg PO QHS Carvedilol 12.5 Mg Tablet 12.5 Mg PO BID Vitamin B-12 (Cyanocobalamin (Vitamin B-12)) 1,000 Mcg Tablet 1,000 Mcg PO DAILY Lisinopril 40 Mg Tablet 40 Mg PO DAILY Ferrous Sulfate 325 Mg Tablet 325 Mg PO BID Atorvastatin Calcium 40 Mg Tablet 40 Mg PO QHS Detrol La (Tolterodine Tartrate) 2 Mg Cap.er.24h 2 Mg PO BID Zoloft (Sertraline Hcl) 100 Mg Tablet 200 Mg PO DAILY Aspir-Low (Aspirin) 81 Mg Tablet.dr 81 Mg PO DAILY Dicyclomine Hcl 20 Mg Tablet 20 Mg PO DAILY Allergies: Coded Allergies: adhesive (Verified Allergy, Intermediate, 05/29/18) adhesive tape (Verified Allergy, Intermediate, 05/29/18) promethazine (Verified Allergy, Intermediate, 05/29/18) Review of Systems: Constitutional: No fever or chills Eyes: No eye pain or blurred vision Skin: No rash or itching Cardiovascular: No chest pain, syncope, palpitations, dyspnea on exertion, or edema Respiratory: No cough or difficulty breathing Gastrointestinal: No nausea, vomiting, or abdominal pain Neurologic: No headaches positive left hemiparesis Endocrine: No heat or cold intolerance Genitourinary: No incontinence or hematuria Musculoskeletal: See history of present illness Lymphatics: No enlarged lymph nodes Psychiatric: See history of present illness Physical Exam: Gen.: Alert, depressed and emotionally labile, no apparent distress HEENT: Normocephalic atraumatic, PERRLA EOMI, no scleral icterus, oral mucosa pink and moist Neck: Supple, no lymphadenopathy, nontender Cardiovascular: Normal S1 and S2 no murmurs Pulmonary: Lungs are clear bilaterally with good air movement no respiratory distress, left anterior chest wall tenderness no palpable bony deformity, skin tenting, or bruising Abdomen: Soft nontender non-distended, bowel sounds present no masses Extremities: No clubbing, cyanosis or edema Neuro: Alert and oriented 3, cranial nerves II through XII grossly intact, left hemiparesis Skin: Warm, dry VITALS Vital Signs Date Time Temp Pulse Resp B/P (MAP) Pulse Ox O2 Delivery O2 Flow Rate FiO2 05/30/18 08:16 73 131/68 05/30/18 06:06 97.2 18 95 05/29/18 19:41 Room Air Labs Laboratory Tests Test 05/29/18 07:00 05/30/18 11:55 White Blood Count 6.2 x10^3/uL (4.0-11.0) Red Blood Count 4.01 x10^6/uL (3.50-5.40) Hemoglobin 11.6 g/dL (12.0-15.5) Hematocrit 34.9 % (36.0-47.0) Mean Corpuscular Volume 87 fL (79-100) Mean Corpuscular Hemoglobin 29 pg (25-35) Mean Corpuscular Hemoglobin Concent 33 g/dL (31-37) Red Cell Distribution Width 15.2 % (11.5-14.5) Platelet Count 98 x10^3/uL (140-400) Neutrophils (%) (Auto) 77 % (31-73) Lymphocytes (%) (Auto) 12 % (24-48) Monocytes (%) (Auto) 9 % (0-9) Eosinophils (%) (Auto) 1 % (0-3) Basophils (%) (Auto) 1 % (0-3) Neutrophils # (Auto) 4.7 x10^3uL (1.8-7.7) Lymphocytes # (Auto) 0.8 x10^3/uL (1.0-4.8) Monocytes # (Auto) 0.6 x10^3/uL (0.0-1.1) Eosinophils # (Auto) 0.1 x10^3/uL (0.0-0.7) Basophils # (Auto) 0.0 x10^3/uL (0.0-0.2) Sodium Level 141 mmol/L (136-145) Potassium Level 3.9 mmol/L (3.5-5.1) Chloride Level 106 mmol/L (98-107) Carbon Dioxide Level 25 mmol/L (21-32) Anion Gap 10 (6-14) Blood Urea Nitrogen 19 mg/dL (7-20) Creatinine 0.9 mg/dL (0.6-1.0) Estimated GFR (Cockcroft-Gault) 60.1 BUN/Creatinine Ratio 21 (6-20) Glucose Level 100 mg/dL (70-99) Hemoglobin A1c 5.2 % (4.8-5.6) Calcium Level 9.3 mg/dL (8.5-10.1) Magnesium Level 1.8 mg/dL (1.8-2.4) Iron Level 47 ug/dL (50-170) Total Iron Binding Capacity 235 ug/dL (250-450) Iron Saturation 20 % (15-34) Total Bilirubin 0.3 mg/dL (0.2-1.0) Aspartate Amino Transf (AST/SGOT) 13 U/L (15-37) Alanine Aminotransferase (ALT/SGPT) 16 U/L (14-59) Alkaline Phosphatase 106 U/L (46-116) Total Protein 6.7 g/dL (6.4-8.2) Albumin 3.1 g/dL (3.4-5.0) Albumin/Globulin Ratio 0.9 (1.0-1.7) Triglycerides Level 124 mg/dL (0-150) Cholesterol Level 173 mg/dL (0-200) LDL Cholesterol, Calculated 76 mg/dL (0-100) VLDL Cholesterol, Calculated 24 mg/dL (0-40) Non-HDL Cholesterol Calculated 100 mg/dL (0-129) HDL Cholesterol 73 mg/dL (40-60) Cholesterol/HDL Ratio 2.0 Vitamin B12 Level 835 pg/mL (247-911) 25-Hydroxy Vitamin D Total 13.2 ng/mL (30-100) Thyroid Stimulating Hormone (TSH) 1.663 uIU/mL (0.358-3.740) Thyroxine (T4) 3.7 ug/dL (4.5-12.0) Total Triiodothyronine 87 ng/dL (71-180) Treponema pallidum Antibody Nonreactive (Nonreactive) Urine Collection Type Unknown Urine Color Yellow Urine Clarity Cloudy Urine pH 5.0 Urine Specific [place] 1.010 Urine Protein Neg (NEG-TRACE) Urine Glucose (UA) Neg mg/dL (NEG) Urine Ketones (Stick) Neg mg/dL (NEG) Urine Blood Small (NEG) Urine Nitrite Pos (NEG) Urine Bilirubin Neg (NEG) Urine Urobilinogen Dipstick 0.2 mg/dL (0.2 mg/dL) Urine Leukocyte Esterase Large (NEG) Urine RBC 1-2 /HPF (0-2) Urine WBC >40 /HPF (0-4) Urine Squamous Epithelial Cells Few /LPF Urine Bacteria Many /HPF (0-FEW) Assessment/Plan In general this is an 82-year-old female with a few chronic medical problems which appear to be well controlled on current medications and dosages. We'll check left rib series to rule out fracture and initiate vitamin D supplementation. Initiate antibiotics for UTI and await culture, check a ferritin level with abnormal iron studies. We'll continue to follow and offer treatments as indicated. Thank you, Dr. Boland, for allowing me to participate in the care of your patient. TORIBIO HODGE DO May 30, 2018 14:26
--- NOTE | 2018-05-30 15:20 | RAD ---
Left RIBS with chest, 05/30/2018: HISTORY: Fall, pain The bony structures are demineralized which limits the sensitivity of this exam. No acute rib fracture is identified. There is no evidence of underlying pneumothorax, hemothorax or pulmonary infiltrate. The heart is at the upper limits of normal in size. There is extensive calcific plaquing the aorta. Coronary artery calcifications are present. A right Port-A-Cath extends into the superior vena cava. Moderate multilevel degenerative change is evident in the spine. IMPRESSION: No acute left rib abnormality is detected. Electronically signed by: Rubén Ogden MD (05/30/2018 3:17 PM) [facility]
[2018-05-30 15:46] VITALS: BP 101/53
[2018-05-30] MEDS: SMZ/TMP 800/160MG TABLET. PO SCH (20:18)
[2018-05-30] MEDS: LACTOBACILLUS RHAMNOSUS GG 1 CAPSULE. PO SCH (20:18)
[2018-05-30] MEDS: MIRTAZAPINE 30 MG TABLET PO SCH (20:19)
[2018-05-30] MEDS: ATORVASTATIN CALCIUM 20 MG TABLET PO SCH (20:20)
[2018-05-30] MEDS: risperiDONE 0.25 MG TABLET. PO SCH (20:23)
--- NOTE | 2018-05-30 20:47 | PDOC ---
Exam Note: Alek Note: Please also refer to the separate dictated note~for this date of service dictated separately.~Patient seen individually. Discussed the patient with Nursing staff reviewed the chart.~Reviewed interim history and current functioning. Reviewed vital signs,~Labs/ Radiology~and current medications noted below. Continue current treatment with the changes noted in the dictated addendum note Assessment: Vital Signs: Vital Signs Date Time Temp Pulse Resp B/P (MAP) Pulse Ox O2 Delivery O2 Flow Rate FiO2 05/30/18 20:19 16 92 05/30/18 18:29 65 101/53 05/30/18 15:46 98.2 Room Air I&O Intake and Output 05/30/18 07:00 Intake Total 120 ml Balance 120 ml Intake Oral 120 ml # Voids 1 Labs: Laboratory Tests Test 05/30/18 11:55 Urine Collection Type Unknown Urine Color Yellow Urine Clarity Cloudy Urine pH 5.0 Urine Specific [place] 1.010 Urine Protein Neg (NEG-TRACE) Urine Glucose (UA) Neg mg/dL (NEG) Urine Ketones (Stick) Neg mg/dL (NEG) Urine Blood Small (NEG) Urine Nitrite Pos (NEG) Urine Bilirubin Neg (NEG) Urine Urobilinogen Dipstick 0.2 mg/dL (0.2 mg/dL) Urine Leukocyte Esterase Large (NEG) Urine RBC 1-2 /HPF (0-2) Urine WBC >40 /HPF (0-4) Urine Squamous Epithelial Cells Few /LPF Urine Bacteria Many /HPF (0-FEW) Current Medications: Meds: Current Medications Acetaminophen (Tylenol) 650 mg PRN Q6HRS PRN PO PAIN / TEMP Last administered on 05/30/18at 05:37; Start 05/29/18 at 06:00 Multi-Ingredient Ointment (Analgesic [place]) 1 abel PRN QID PRN TP MUSCLE PAIN; Start 05/29/18 at 06:00 Al Hydroxide/Mg Hydroxide (Mylanta Plus Xs) 15 ml PRN AFTMEALHC PRN PO DYSPEPSIA; Start 05/29/18 at 06:00; Status Cancel Magnesium Hydroxide (Milk Of Magnesia) 2,400 mg PRN QHS PRN PO CONSTIPATION; Start 05/29/18 at 06:00; Stop 05/29/18 at 07:16; Status DC Mirtazapine (Remeron) 30 mg QHS PO Last administered on 05/30/18 20:19; Start 05/29/18 at 21:00 Sertraline HCl (Zoloft) 200 mg DAILY PO Last administered on 05/30/18at 08:11; Start 05/29/18 at 09:00; Stop 05/30/18 at 17:07; Status DC Quetiapine Fumarate (SEROquel) 50 mg [id number] PO Last administered on 05/30/18 14:18; Start 05/29/18 at 09:00 Quetiapine Fumarate (SEROquel) 100 mg QHS PO Last administered on 05/30/18 20 :20; Start 05/29/18 at 21:00 Risperidone (RisperDAL) 0.5 mg QHS PO Last administered on 05/29/18at 20:32; Start 05/29/18 at 21:00; Stop 05/30/18 at 16:48; Status DC Acetaminophen (Tylenol) 650 mg PRN Q6HRS PRN PO PAIN; Start 05/29/18 at 07:15 ; Status Cancel Cyanocobalamin (Vitamin B-12) 1,000 mcg DAILY PO Last administered on at 08:11; Start 05/29/18 at 09:00 Ferrous Sulfate (Feosol) 325 mg BID PO Last administered on 05/30/18 20:19; Start 05/29/18 at 09:00 Furosemide (Lasix) 20 mg BID PO Last administered on 05/30/18at 20:20; Start 05/29/18 at 09:00 Guaifenesin (Mucinex Er) 600 mg PRN BID PRN PO COUGH; Start 05/29/18 at 07:15 Albuterol/ Ipratropium (Duoneb) 3 ml PRN Q4HRS PRN NEB SHORTNESS OF BREATH; Start 05/29/18 at 07:15 Magnesium Hydroxide (Milk Of Magnesia) 800 mg PRN Q6HRS PRN PO CONSTIPATION; Start 05/29/18 at 07:15 Nitroglycerin (Nitrostat) 0.4 mg PRN Q5MIN PRN SL CHEST PAIN; Start 05/29/18 at 07:15 Prednisone (Prednisone) 10 mg DAILY PO Last administered on 05/30/18at 08:11; Start 05/29/18 at 09:00 Non-Formulary Medication (Albuterol Sulfate (Albuterol Sulfate Conc Neb Soln)) 1.25 mg PRN Q6HRS PRN NEB SHORTNESS OF BREATH; Start 05/29/18 at 07:15; Status UNV Amlodipine Besylate (Norvasc) 2.5 mg DAILY PO Last administered on 05/30/18 08:11; Start 05/29/18 at 09:00 Aspirin (Aspirin Enteric Coated) 81 mg DAILYWBKFT PO Last administered on 05/30 08:12; Start 05/29/18 at 08:00 Atorvastatin Calcium (Lipitor) 40 mg QHS PO Last administered on 05/30/18 20: 20; Start 05/29/18 at 21:00 Benzonatate (Tessalon Perle) 200 mg PRN TID PRN PO COUGH; Start 05/29/18 at 07 :15 Carvedilol (Coreg) 12.5 mg BIDWMEALS PO Last administered on 05/30/18 18:29; Start 05/29/18 at 08:00 Dicyclomine HCl (Bentyl) 20 mg DAILY PO Last administered on 05/30/18 08:12; Start 05/29/18 at 09:00 Docusate Sodium (Colace) 100 mg BID PO Last administered on 05/30/18 20:19; Start 05/29/18 at 09:00 Acetaminophen/ Hydrocodone Bitart (Lortab 10/325) 1 tab BID PO Last administered on 05/30/18 20:19; Start 05/29/18 at 09:00 Acetaminophen/ Hydrocodone Bitart (Lortab 5/325) 1 tab PRN BID PRN PO PAIN Last administered on 05/30/18 14:17; Start 05/29/18 at 07:30 Isosorbide Mononitrate (Imdur) 60 mg DAILY PO Last administered on 05/30/18 08:13; Start 05/29/18 at 09:00 Levetiracetam (Keppra) 500 mg BID PO Last administered on 05/30/18 20:19; Start 05/29/18 at 09:00 Lisinopril (Prinivil) 40 mg DAILY PO Last administered on 05/30/18 08:16; Start 05/29/18 at 09:00 Al Hydroxide/Mg Hydroxide (Mylanta Plus Xs) 30 ml PRN Q2HR PRN PO INDIGESTION; Start 05/29/18 at 07:15 Pantoprazole Sodium (Protonix) 40 mg DAILYAC PO Last administered on at 08:12; Start 05/29/18 at 07:30 Potassium Chloride (Klor-Con) 20 meq BIDWMEALS PO Last administered on at 18:28; Start 05/29/18 at 08:00 Oxybutynin Chloride (Ditropan) 5 mg [id number] PO Last administered on 05/30/18at 20:18; Start 05/29/18 at 09:00 Albuterol Sulfate (Ventolin) 1.25 mg PRN Q6HRS PRN NEB SHORTNESS OF BREATH; Start 05/29/18 at 07:45 Vitamin D (Vitamin D3) 50,000 unit WEEKLY PO Last administered on 05/30/18at 08 :16; Start 05/30/18 at 09:00 Trimethoprim/ Sulfamethoxazole (Bactrim Ds) 1 tab BID PO Last administered on 05/30/18at 20:18; Start 05/30/18 at 21:00; Stop 06/09/18 at 20:59 Lactobacillus Rhamnosus (Culturelle) 1 cap BID PO Last administered on at 20:18; Start 05/30/18 at 21:00 Risperidone (RisperDAL) 0.25 mg QHS PO Last administered on 05/30/18at 20:23; Start 05/30/18 at 21:00 Sertraline HCl (Zoloft) 100 mg DAILY PO ; Start 05/31/18 at 09:00 Bupropion HCl (Wellbutrin Xl) 150 mg DAILY PO ; Start 05/31/18 at 09:00 Active Scripts Active Reported Albuterol Sulfate Conc Neb Soln (Albuterol Sulfate) 2.5 Mg/0.5 Ml Vial.neb 1.25 Mg NEB PRN Q6HRS PRN [place] 5-325 Tablet (Hydrocodone Bit/Acetaminophen) 1 Each Tablet 1 Tab PO PRN BID PRN Duoneb 0.5-3(2.5) Mg/3 Ml (Albuterol/Ipratropium) 3 Ml Ampul.neb 3 Ml NEB PRN Q4HRS PRN Tessalon Perle (Benzonatate) 100 Mg Capsule 200 Mg PO PRN TID PRN Mucinex (Guaifenesin) 600 Mg Tablet.er 600 Mg PO PRN BID PRN Antacid Liquid (Mag Hydrox/Al Hydrox/Simeth) 355 Ml Oral.susp 30 Ml PO PRN Q2HR PRN Milk Of Magnesia (Magnesium Hydroxide) 400 Mg/5 Ml Oral.susp 10 Ml PO PRN Q6HRS PRN Tylenol (Acetaminophen) 325 Mg Tablet 1-2 Tab PO PRN Q6HRS PRN NITROGLYCERIN SubLingual (Nitroglycerin) 0.4 Mg Tab.subl 0.4 Mg SL PRN Q5MIN PRN do not exceed 3 tabs per episode Prednisone 10 Mg Tablet 10 Mg PO DAILY Potassium Chloride 20 Meq Tablet.er 20 Meq PO BID Lasix (Furosemide) 20 Mg Tablet 20 Mg PO BID Seroquel (Quetiapine Fumarate) 100 Mg Tablet 100 Mg PO QHS Risperdal (Risperidone) 0.5 Mg Tablet 0.5 Mg PO QHS Isosorbide Mononitrate Er (Isosorbide Mononitrate) 60 Mg Tab.er.24h 60 Mg PO DAILY Norvasc (Amlodipine Besylate) 2.5 Mg Tablet 2.5 Mg PO DAILY Seroquel (Quetiapine Fumarate) 50 Mg Tablet 50 Mg PO BID Prilosec Otc (Omeprazole Magnesium) 20 Mg Tablet.dr 20 Mg PO DAILY [place] 10-325 Tablet (Hydrocodone Bit/Acetaminophen) 1 Each Tablet 1 Tab PO BID Levetiracetam 500 Mg Tablet 500 Mg PO BID Colace (Docusate Sodium) 100 Mg Capsule 100 Mg PO BID Remeron (Mirtazapine) 30 Mg Tablet 30 Mg PO QHS Carvedilol 12.5 Mg Tablet 12.5 Mg PO BID Vitamin B-12 (Cyanocobalamin (Vitamin B-12)) 1,000 Mcg Tablet 1,000 Mcg PO DAILY Lisinopril 40 Mg Tablet 40 Mg PO DAILY Ferrous Sulfate 325 Mg Tablet 325 Mg PO BID Atorvastatin Calcium 40 Mg Tablet 40 Mg PO QHS Detrol La (Tolterodine Tartrate) 2 Mg Cap.er.24h 2 Mg PO BID Zoloft (Sertraline Hcl) 100 Mg Tablet 200 Mg PO DAILY Aspir-Low (Aspirin) 81 Mg Tablet.dr 81 Mg PO DAILY Dicyclomine Hcl 20 Mg Tablet 20 Mg PO DAILY I have reviewed the current psychotropics carefully including drug interactions. Risk benefit ratio favors no change other than as noted in my dictated progress note. Diagnosis: Problems: (1) Anxiety disorder (2) Dementia, vascular, with delusions (3) Dementia, vascular, with depression (4) Major depressive disorder, recurrent episode JUAN MILLER MD May 30, 2018 20:47
[2018-05-31 05:42] VITALS: BP 96/55
[2018-05-31] MEDS: QUEtiapine 50 MG TABLET. PO SCH ×2 (07:59→13:31)
[2018-05-31] MEDS: FERROUS SULFATE 325 MG TABLET. PO SCH ×2 (07:59→20:37)
[2018-05-31] MEDS: CARVEDILOL 12.5 MG TABLET PO SCH ×2 (08:00→18:27)
[2018-05-31] MEDS: PANTOPRAZOLE 40 MG TABLET. PO SCH (08:02)
[2018-05-31] MEDS: OXYBUTYNIN CHLORIDE 5 MG TABLET PO SCH ×3 (08:02→20:37)
[2018-05-31] MEDS: ASPIRIN ENTERIC COATED 81 MG TABLET.DR. PO SCH (08:02)
[2018-05-31] MEDS: FUROSEMIDE 20 MG TABLET PO SCH ×2 (08:02→20:38)
[2018-05-31] MEDS: DICYCLOMINE HCL 20 MG TABLET PO SCH (08:02)
[2018-05-31] MEDS: predniSONE 10 MG TABLET PO SCH (08:02)
[2018-05-31] MEDS: HYDROcodone/APAP 10/325 1 TAB TABLET PO SCH ×2 (08:02→20:37)
[2018-05-31] MEDS: DOCUSATE SODIUM 100 MG CAPSULE PO SCH ×2 (08:02→20:37)
[2018-05-31] MEDS: POTASSIUM CHLORIDE 20 MEQ TABLET.ER. PO SCH ×2 (08:02→18:29)
[2018-05-31] MEDS: SMZ/TMP 800/160MG TABLET. PO SCH ×2 (08:03→20:37)
[2018-05-31] MEDS: levETIRAcetam 500 MG TABLET PO SCH ×2 (08:03→20:37)
[2018-05-31] MEDS: LACTOBACILLUS RHAMNOSUS GG 1 CAPSULE. PO SCH ×2 (08:03→20:37)
[2018-05-31] MEDS: CYANOCOBALAMIN (VITAMIN B-12) 1,000 MCG TABLET. PO SCH (08:03)
[2018-05-31] MEDS: ISOSORBIDE MONONITRATE ER 30 MG TAB.ER.24H PO SCH (09:00)
[2018-05-31] MEDS: amLODIPine BESYLATE 2.5 MG TABLET PO SCH (09:00)
[2018-05-31] MEDS: LISINOPRIL 20 MG TABLET PO SCH (09:00)
[2018-05-31] MEDS: SERTRALINE 100 MG TABLET. PO SCH (10:56)
[2018-05-31] MEDS: buPROPion XL 150 MG TAB.ER.24H PO SCH (10:56)
[2018-05-31 16:29] VITALS: BP 140/85
--- NOTE | 2018-05-31 19:03 | PN ---
DATE: 05/30/2018 PSYCHIATRIC PROGRESS NOTE This late entry 05/30/2018 covers elements not covered in my initial note. SUBJECTIVE: I met with the patient in the evening. The patient was tearful at breakfast time, somewhat sad, depressed that she believed her had thrown her out of the home. I addressed this at great length with her individually in her room in the evening as noted below. She is oriented to year, knew she was in [place], knew who the President was. X-RAY: Left ribs, noncontributory and bilateral hip and pelvis were negative as well. REVIEW OF SYSTEMS: Ambulation impaired. She was lying in bed. No CV, , pulmonary, eye system symptoms on review. MENTAL STATUS EXAM: Reasonably oriented. She was reading a newspaper that her had brought her [place]. Speech coherent, abstraction fair. Computation, one step on serial 7's. No suicidal or homicidal ideation. Mood is depressed. Affect is mood congruent. We discussed at great length ways to improve communication with her and her being able to reflect back to him in his conversation and how it comes across to her. She is very insightful, appreciative of this suggestion. No suicidal or homicidal ideation. LABORATORY DATA: Reviewed. IMPRESSION: Major depressive disorder, recurrent; anxiety disorder, unspecified. PLAN: The patient is on Zoloft 200 mg a day, we will reduce to 100 mg a day. Add Wellbutrin-XL 150 mg in the morning. Maintain Remeron 30 mg at bedtime; Seroquel 50 mg b.i.d., she is also on 100 mg at bedtime and Risperdal 0.5 mg at bedtime, which we will reduce to 0.25 mg p.o. at bedtime given her history of CVA and the propensity for Risperdal will complicate this. We will ultimately plan on stopping the Risperdal. JAUN MILLER MD DR: DELILAH/nathan JOB#: [id number] / [id number]
[2018-05-31] MEDS: risperiDONE 0.25 MG TABLET. PO SCH (20:37)
[2018-05-31] MEDS: QUEtiapine 100 MG TABLET. PO SCH (20:37)
[2018-05-31] MEDS: MIRTAZAPINE 30 MG TABLET PO SCH (20:37)
[2018-05-31] MEDS: ATORVASTATIN CALCIUM 20 MG TABLET PO SCH (20:38)
--- NOTE | 2018-05-31 22:44 | PDOC ---
Exam Note: Alek Note: Please also refer to the separate dictated note~for this date of service dictated separately.~Patient seen individually. Discussed the patient with Nursing staff reviewed the chart.~Reviewed interim history and current functioning. Reviewed vital signs,~Labs/ Radiology~and current medications noted below. Continue current treatment with the changes noted in the dictated addendum note Assessment: Vital Signs: Vital Signs Date Time Temp Pulse Resp B/P (MAP) Pulse Ox O2 Delivery O2 Flow Rate FiO2 05/31/18 21:37 16 96 05/31/18 18:27 86 140/85 05/31/18 16:29 98.7 05/30/18 15:46 Room Air I&O Intake and Output 05/31/18 07:00 Intake Total 960 ml Balance 960 ml Intake Oral 960 ml Current Medications: Meds: Current Medications Acetaminophen (Tylenol) 650 mg PRN Q6HRS PRN PO PAIN / TEMP Last administered on 05/30/18at 05:37; Start 05/29/18 at 06:00 Multi-Ingredient Ointment (Analgesic Rosman) 1 abel PRN QID PRN TP MUSCLE PAIN; Start 05/29/18 at 06:00 Al Hydroxide/Mg Hydroxide (Mylanta Plus Xs) 15 ml PRN AFTMEALHC PRN PO DYSPEPSIA; Start 05/29/18 at 06:00; Status Cancel Magnesium Hydroxide (Milk Of Magnesia) 2,400 mg PRN QHS PRN PO CONSTIPATION; Start 05/29/18 at 06:00; Stop 05/29/18 at 07:16; Status DC Mirtazapine (Remeron) 30 mg QHS PO Last administered on 05/31/18at 20:37; Start 05/29/18 at 21:00 Sertraline HCl (Zoloft) 200 mg DAILY PO Last administered on 05/30/18at 08:11; Start 05/29/18 at 09:00; Stop 05/30/18 at 17:07; Status DC Quetiapine Fumarate (SEROquel) 50 mg [id number] PO Last administered on 05/31/18at 13:31; Start 05/29/18 at 09:00 Quetiapine Fumarate (SEROquel) 100 mg QHS PO Last administered on 05/31/18at 20 :37; Start 05/29/18 at 21:00 Risperidone (RisperDAL) 0.5 mg QHS PO Last administered on 05/29/18 20:32; Start 05/29/18 at 21:00; Stop 05/30/18 at 16:48; Status DC Acetaminophen (Tylenol) 650 mg PRN Q6HRS PRN PO PAIN; Start 05/29/18 at 07:15 ; Status Cancel Cyanocobalamin (Vitamin B-12) 1,000 mcg DAILY PO Last administered on 08:03; Start 05/29/18 at 09:00 Ferrous Sulfate (Feosol) 325 mg BID PO Last administered on 05/31/18 20:37; Start 05/29/18 at 09:00 Furosemide (Lasix) 20 mg BID PO Last administered on 05/31/18 20:38; Start 05/29/18 at 09:00 Guaifenesin (Mucinex Er) 600 mg PRN BID PRN PO COUGH; Start 05/29/18 at 07:15 Albuterol/ Ipratropium (Duoneb) 3 ml PRN Q4HRS PRN NEB SHORTNESS OF BREATH; Start 05/29/18 at 07:15 Magnesium Hydroxide (Milk Of Magnesia) 800 mg PRN Q6HRS PRN PO CONSTIPATION; Start 05/29/18 at 07:15 Nitroglycerin (Nitrostat) 0.4 mg PRN Q5MIN PRN SL CHEST PAIN; Start 05/29/18 at 07:15 Prednisone (Prednisone) 10 mg DAILY PO Last administered on 05/31/18 08:02; Start 05/29/18 at 09:00 Non-Formulary Medication (Albuterol Sulfate (Albuterol Sulfate Conc Neb Soln)) 1.25 mg PRN Q6HRS PRN NEB SHORTNESS OF BREATH; Start 05/29/18 at 07:15; Status UNV Amlodipine Besylate (Norvasc) 2.5 mg DAILY PO Last administered on 05/31/18 09:00; Start 05/29/18 at 09:00 Aspirin (Aspirin Enteric Coated) 81 mg [id number] PO Last administered on 05/31 08:02; Start 05/29/18 at 08:00 Atorvastatin Calcium (Lipitor) 40 mg QHS PO Last administered on 05/31/18 20: 38; Start 05/29/18 at 21:00 Benzonatate (Tessalon Perle) 200 mg PRN TID PRN PO COUGH; Start 05/29/18 at 07 :15 Carvedilol (Coreg) 12.5 mg BIDWMEALS PO Last administered on 05/31/18 18:27; Start 05/29/18 at 08:00 Dicyclomine HCl (Bentyl) 20 mg DAILY PO Last administered on 05/31/18 08:02; Start 05/29/18 at 09:00 Docusate Sodium (Colace) 100 mg BID PO Last administered on 05/31/18 20:37; Start 05/29/18 at 09:00 Acetaminophen/ Hydrocodone Bitart (Lortab 10/325) 1 tab BID PO Last administered on 05/31/18 20:37; Start 05/29/18 at 09:00 Acetaminophen/ Hydrocodone Bitart (Lortab 5/325) 1 tab PRN BID PRN PO PAIN Last administered on 05/30/18 14:17; Start 05/29/18 at 07:30 Isosorbide Mononitrate (Imdur) 60 mg DAILY PO Last administered on 05/31/18 09:00; Start 05/29/18 at 09:00 Levetiracetam (Keppra) 500 mg BID PO Last administered on 05/31/18 20:37; Start 05/29/18 at 09:00 Lisinopril (Prinivil) 40 mg DAILY PO Last administered on 05/31/18 09:00; Start 05/29/18 at 09:00 Al Hydroxide/Mg Hydroxide (Mylanta Plus Xs) 30 ml PRN Q2HR PRN PO INDIGESTION; Start 05/29/18 at 07:15 Pantoprazole Sodium (Protonix) 40 mg DAILYAC PO Last administered on 08:02; Start 05/29/18 at 07:30 Potassium Chloride (Klor-Con) 20 meq BIDWMEALS PO Last administered on 18:29; Start 05/29/18 at 08:00 Oxybutynin Chloride (Ditropan) 5 mg [id number] PO Last administered on 05/31/18 20:37; Start 05/29/18 at 09:00 Albuterol Sulfate (Ventolin) 1.25 mg PRN Q6HRS PRN NEB SHORTNESS OF BREATH; Start 05/29/18 at 07:45 Vitamin D (Vitamin D3) 50,000 unit WEEKLY PO Last administered on 05/30/18at 08 :16; Start 05/30/18 at 09:00 Trimethoprim/ Sulfamethoxazole (Bactrim Ds) 1 tab BID PO Last administered on 05/31/18at 20:37; Start 05/30/18 at 21:00; Stop 06/09/18 at 20:59 Lactobacillus Rhamnosus (Culturelle) 1 cap BID PO Last administered on at 20:37; Start 05/30/18 at 21:00 Risperidone (RisperDAL) 0.25 mg QHS PO Last administered on 05/31/18at 20:37; Start 05/30/18 at 21:00 Sertraline HCl (Zoloft) 100 mg DAILY PO Last administered on 05/31/18at 10:56; Start 05/31/18 at 09:00 Bupropion HCl (Wellbutrin Xl) 150 mg DAILY PO Last administered on 05/31/18at 10:56; Start 05/31/18 at 09:00 Active Scripts Active Reported Albuterol Sulfate Conc Neb Soln (Albuterol Sulfate) 2.5 Mg/0.5 Ml Vial.neb 1.25 Mg NEB PRN Q6HRS PRN [place] 5-325 Tablet (Hydrocodone Bit/Acetaminophen) 1 Each Tablet 1 Tab PO PRN BID PRN Duoneb 0.5-3(2.5) Mg/3 Ml (Albuterol/Ipratropium) 3 Ml Ampul.neb 3 Ml NEB PRN Q4HRS PRN Tessalon Perle (Benzonatate) 100 Mg Capsule 200 Mg PO PRN TID PRN Mucinex (Guaifenesin) 600 Mg Tablet.er 600 Mg PO PRN BID PRN Antacid Liquid (Mag Hydrox/Al Hydrox/Simeth) 355 Ml Oral.susp 30 Ml PO PRN Q2HR PRN Milk Of Magnesia (Magnesium Hydroxide) 400 Mg/5 Ml Oral.susp 10 Ml PO PRN Q6HRS PRN Tylenol (Acetaminophen) 325 Mg Tablet 1-2 Tab PO PRN Q6HRS PRN NITROGLYCERIN SubLingual (Nitroglycerin) 0.4 Mg Tab.subl 0.4 Mg SL PRN Q5MIN PRN do not exceed 3 tabs per episode Prednisone 10 Mg Tablet 10 Mg PO DAILY Potassium Chloride 20 Meq Tablet.er 20 Meq PO BID Lasix (Furosemide) 20 Mg Tablet 20 Mg PO BID Seroquel (Quetiapine Fumarate) 100 Mg Tablet 100 Mg PO QHS Risperdal (Risperidone) 0.5 Mg Tablet 0.5 Mg PO QHS Isosorbide Mononitrate Er (Isosorbide Mononitrate) 60 Mg Tab.er.24h 60 Mg PO DAILY Norvasc (Amlodipine Besylate) 2.5 Mg Tablet 2.5 Mg PO DAILY Seroquel (Quetiapine Fumarate) 50 Mg Tablet 50 Mg PO BID Prilosec Otc (Omeprazole Magnesium) 20 Mg Tablet.dr 20 Mg PO DAILY [place] 10-325 Tablet (Hydrocodone Bit/Acetaminophen) 1 Each Tablet 1 Tab PO BID Levetiracetam 500 Mg Tablet 500 Mg PO BID Colace (Docusate Sodium) 100 Mg Capsule 100 Mg PO BID Remeron (Mirtazapine) 30 Mg Tablet 30 Mg PO QHS Carvedilol 12.5 Mg Tablet 12.5 Mg PO BID Vitamin B-12 (Cyanocobalamin (Vitamin B-12)) 1,000 Mcg Tablet 1,000 Mcg PO DAILY Lisinopril 40 Mg Tablet 40 Mg PO DAILY Ferrous Sulfate 325 Mg Tablet 325 Mg PO BID Atorvastatin Calcium 40 Mg Tablet 40 Mg PO QHS Detrol La (Tolterodine Tartrate) 2 Mg Cap.er.24h 2 Mg PO BID Zoloft (Sertraline Hcl) 100 Mg Tablet 200 Mg PO DAILY Aspir-Low (Aspirin) 81 Mg Tablet.dr 81 Mg PO DAILY Dicyclomine Hcl 20 Mg Tablet 20 Mg PO DAILY I have reviewed the current psychotropics carefully including drug interactions. Risk benefit ratio favors no change other than as noted in my dictated progress note. Diagnosis: Problems: (1) Anxiety disorder (2) Dementia, vascular, with delusions (3) Dementia, vascular, with depression (4) Major depressive disorder, recurrent episode JUAN MILLER MD May 31, 2018 22:44
[2018-06-01 06:23] VITALS: BP 98/55
[2018-06-01] MEDS: ASPIRIN ENTERIC COATED 81 MG TABLET.DR. PO SCH (07:48)
[2018-06-01] MEDS: POTASSIUM CHLORIDE 20 MEQ TABLET.ER. PO SCH ×2 (07:48→17:00)
[2018-06-01] MEDS: OXYBUTYNIN CHLORIDE 5 MG TABLET PO SCH ×3 (07:48→20:17)
[2018-06-01] MEDS: FUROSEMIDE 20 MG TABLET PO SCH ×2 (07:48→20:17)
[2018-06-01] MEDS: levETIRAcetam 500 MG TABLET PO SCH ×2 (07:48→20:17)
[2018-06-01] MEDS: DOCUSATE SODIUM 100 MG CAPSULE PO SCH ×2 (07:48→20:16)
[2018-06-01] MEDS: buPROPion XL 150 MG TAB.ER.24H PO SCH (07:48)
[2018-06-01] MEDS: DICYCLOMINE HCL 20 MG TABLET PO SCH (07:48)
[2018-06-01] MEDS: predniSONE 10 MG TABLET PO SCH (07:49)
[2018-06-01] MEDS: FERROUS SULFATE 325 MG TABLET. PO SCH ×2 (07:49→20:16)
[2018-06-01] MEDS: PANTOPRAZOLE 40 MG TABLET. PO SCH (07:49)
[2018-06-01] MEDS: SMZ/TMP 800/160MG TABLET. PO SCH ×2 (07:49→20:16)
[2018-06-01] MEDS: CYANOCOBALAMIN (VITAMIN B-12) 1,000 MCG TABLET. PO SCH (07:49)
[2018-06-01] MEDS: LACTOBACILLUS RHAMNOSUS GG 1 CAPSULE. PO SCH ×2 (07:49→20:17)
[2018-06-01] MEDS: QUEtiapine 100 MG TABLET. PO SCH ×2 (07:49→20:17)
[2018-06-01] MEDS: CARVEDILOL 12.5 MG TABLET PO SCH ×2 (07:49→17:00)
[2018-06-01] MEDS: HYDROcodone/APAP 10/325 1 TAB TABLET PO SCH ×2 (07:49→20:16)
[2018-06-01] MEDS: LISINOPRIL 20 MG TABLET PO SCH (07:50)
[2018-06-01] MEDS: ISOSORBIDE MONONITRATE ER 30 MG TAB.ER.24H PO SCH (07:50)
[2018-06-01] MEDS: amLODIPine BESYLATE 2.5 MG TABLET PO SCH (07:50)
[2018-06-01] MEDS: SERTRALINE 100 MG TABLET. PO SCH (07:52)
[2018-06-01] MEDS: QUEtiapine 50 MG TABLET. PO SCH ×2 (07:52→13:58)
[2018-06-01 16:09] VITALS: BP 116/76
[2018-06-01] MEDS: risperiDONE 0.25 MG TABLET. PO SCH (20:17)
[2018-06-01] MEDS: ATORVASTATIN CALCIUM 20 MG TABLET PO SCH (20:17)
[2018-06-01] MEDS: MIRTAZAPINE 30 MG TABLET PO SCH (20:17)
--- NOTE | 2018-06-01 20:48 | PDOC ---
Exam Note: Alek Note: Please also refer to the separate dictated note~for this date of service dictated separately.~Patient seen individually. Discussed the patient with Nursing staff reviewed the chart.~Reviewed interim history and current functioning. Reviewed vital signs,~Labs/ Radiology~and current medications noted below. Continue current treatment with the changes noted in the dictated addendum note Assessment: Vital Signs: Vital Signs Date Time Temp Pulse Resp B/P (MAP) Pulse Ox O2 Delivery O2 Flow Rate FiO2 06/01/18 20:16 18 93 06/01/18 17:00 73 116/76 06/01/18 16:09 97.2 05/30/18 15:46 Room Air I&O Intake and Output 06/01/18 07:00 Intake Total 480 ml Balance 480 ml Intake Oral 480 ml Current Medications: Meds: Current Medications Acetaminophen (Tylenol) 650 mg PRN Q6HRS PRN PO PAIN / TEMP Last administered on 05/30/18at 05:37; Start 05/29/18 at 06:00 Multi-Ingredient Ointment (Analgesic Schriever) 1 abel PRN QID PRN TP MUSCLE PAIN; Start 05/29/18 at 06:00 Al Hydroxide/Mg Hydroxide (Mylanta Plus Xs) 15 ml PRN AFTMEALHC PRN PO DYSPEPSIA; Start 05/29/18 at 06:00; Status Cancel Magnesium Hydroxide (Milk Of Magnesia) 2,400 mg PRN QHS PRN PO CONSTIPATION; Start 05/29/18 at 06:00; Stop 05/29/18 at 07:16; Status DC Mirtazapine (Remeron) 30 mg QHS PO Last administered on 06/01/18at 20:17; Start 05/29/18 at 21:00 Sertraline HCl (Zoloft) 200 mg DAILY PO Last administered on 05/30/18at 08:11; Start 05/29/18 at 09:00; Stop 05/30/18 at 17:07; Status DC Quetiapine Fumarate (SEROquel) 50 mg [id number] PO Last administered on 06/01/18at 13:58; Start 05/29/18 at 09:00 Quetiapine Fumarate (SEROquel) 100 mg QHS PO Last administered on 06/01/18at 20 :17; Start 05/29/18 at 21:00 Risperidone (RisperDAL) 0.5 mg QHS PO Last administered on 05/29/18at 20:32; Start 05/29/18 at 21:00; Stop 05/30/18 at 16:48; Status DC Acetaminophen (Tylenol) 650 mg PRN Q6HRS PRN PO PAIN; Start 05/29/18 at 07:15 ; Status Cancel Cyanocobalamin (Vitamin B-12) 1,000 mcg DAILY PO Last administered on at 07:49; Start 05/29/18 at 09:00 Ferrous Sulfate (Feosol) 325 mg BID PO Last administered on 06/01/18 20:16; Start 05/29/18 at 09:00 Furosemide (Lasix) 20 mg BID PO Last administered on 06/01/18 20:17; Start 05/29/18 at 09:00 Guaifenesin (Mucinex Er) 600 mg PRN BID PRN PO COUGH; Start 05/29/18 at 07:15 Albuterol/ Ipratropium (Duoneb) 3 ml PRN Q4HRS PRN NEB SHORTNESS OF BREATH; Start 05/29/18 at 07:15 Magnesium Hydroxide (Milk Of Magnesia) 800 mg PRN Q6HRS PRN PO CONSTIPATION; Start 05/29/18 at 07:15 Nitroglycerin (Nitrostat) 0.4 mg PRN Q5MIN PRN SL CHEST PAIN; Start 05/29/18 at 07:15 Prednisone (Prednisone) 10 mg DAILY PO Last administered on 06/01/18at 07:49; Start 05/29/18 at 09:00 Non-Formulary Medication (Albuterol Sulfate (Albuterol Sulfate Conc Neb Soln)) 1.25 mg PRN Q6HRS PRN NEB SHORTNESS OF BREATH; Start 05/29/18 at 07:15; Status UNV Amlodipine Besylate (Norvasc) 2.5 mg DAILY PO Last administered on 05/31/18at 09:00; Start 05/29/18 at 09:00 Aspirin (Aspirin Enteric Coated) 81 mg [id number] PO Last administered on 06/01at 07:48; Start 05/29/18 at 08:00 Atorvastatin Calcium (Lipitor) 40 mg QHS PO Last administered on 06/01/18 20: 17; Start 05/29/18 at 21:00 Benzonatate (Tessalon Perle) 200 mg PRN TID PRN PO COUGH; Start 05/29/18 at 07 :15 Carvedilol (Coreg) 12.5 mg BIDWMEALS PO Last administered on 06/01/18 17:00; Start 05/29/18 at 08:00 Dicyclomine HCl (Bentyl) 20 mg DAILY PO Last administered on 06/01/18at 07:48; Start 05/29/18 at 09:00 Docusate Sodium (Colace) 100 mg BID PO Last administered on 06/01/18 20:16; Start 05/29/18 at 09:00 Acetaminophen/ Hydrocodone Bitart (Lortab 10/325) 1 tab BID PO Last administered on 06/01/18 20:16; Start 05/29/18 at 09:00 Acetaminophen/ Hydrocodone Bitart (Lortab 5/325) 1 tab PRN BID PRN PO PAIN Last administered on 05/30/18 14:17; Start 05/29/18 at 07:30 Isosorbide Mononitrate (Imdur) 60 mg DAILY PO Last administered on 05/31/18 09:00; Start 05/29/18 at 09:00 Levetiracetam (Keppra) 500 mg BID PO Last administered on 06/01/18 20:17; Start 05/29/18 at 09:00 Lisinopril (Prinivil) 40 mg DAILY PO Last administered on 05/31/18 09:00; Start 05/29/18 at 09:00 Al Hydroxide/Mg Hydroxide (Mylanta Plus Xs) 30 ml PRN Q2HR PRN PO INDIGESTION; Start 05/29/18 at 07:15 Pantoprazole Sodium (Protonix) 40 mg DAILYAC PO Last administered on 07:49; Start 05/29/18 at 07:30 Potassium Chloride (Klor-Con) 20 meq BIDWMEALS PO Last administered on 17:00; Start 05/29/18 at 08:00 Oxybutynin Chloride (Ditropan) 5 mg [id number] PO Last administered on 06/01/18 20:17; Start 05/29/18 at 09:00 Albuterol Sulfate (Ventolin) 1.25 mg PRN Q6HRS PRN NEB SHORTNESS OF BREATH; Start 05/29/18 at 07:45 Vitamin D (Vitamin D3) 50,000 unit WEEKLY PO Last administered on 05/30/18at 08 :16; Start 05/30/18 at 09:00 Trimethoprim/ Sulfamethoxazole (Bactrim Ds) 1 tab BID PO Last administered on 06/01/18at 20:16; Start 05/30/18 at 21:00; Stop 06/09/18 at 20:59 Lactobacillus Rhamnosus (Culturelle) 1 cap BID PO Last administered on at 20:17; Start 05/30/18 at 21:00 Risperidone (RisperDAL) 0.25 mg QHS PO Last administered on 06/01/18at 20:17; Start 05/30/18 at 21:00 Sertraline HCl (Zoloft) 100 mg DAILY PO Last administered on 06/01/18at 07:52; Start 05/31/18 at 09:00 Bupropion HCl (Wellbutrin Xl) 150 mg DAILY PO Last administered on 06/01/18at 07:48; Start 05/31/18 at 09:00 Active Scripts Active Reported Albuterol Sulfate Conc Neb Soln (Albuterol Sulfate) 2.5 Mg/0.5 Ml Vial.neb 1.25 Mg NEB PRN Q6HRS PRN [place] 5-325 Tablet (Hydrocodone Bit/Acetaminophen) 1 Each Tablet 1 Tab PO PRN BID PRN Duoneb 0.5-3(2.5) Mg/3 Ml (Albuterol/Ipratropium) 3 Ml Ampul.neb 3 Ml NEB PRN Q4HRS PRN Tessalon Perle (Benzonatate) 100 Mg Capsule 200 Mg PO PRN TID PRN Mucinex (Guaifenesin) 600 Mg Tablet.er 600 Mg PO PRN BID PRN Antacid Liquid (Mag Hydrox/Al Hydrox/Simeth) 355 Ml Oral.susp 30 Ml PO PRN Q2HR PRN Milk Of Magnesia (Magnesium Hydroxide) 400 Mg/5 Ml Oral.susp 10 Ml PO PRN Q6HRS PRN Tylenol (Acetaminophen) 325 Mg Tablet 1-2 Tab PO PRN Q6HRS PRN NITROGLYCERIN SubLingual (Nitroglycerin) 0.4 Mg Tab.subl 0.4 Mg SL PRN Q5MIN PRN do not exceed 3 tabs per episode Prednisone 10 Mg Tablet 10 Mg PO DAILY Potassium Chloride 20 Meq Tablet.er 20 Meq PO BID Lasix (Furosemide) 20 Mg Tablet 20 Mg PO BID Seroquel (Quetiapine Fumarate) 100 Mg Tablet 100 Mg PO QHS Risperdal (Risperidone) 0.5 Mg Tablet 0.5 Mg PO QHS Isosorbide Mononitrate Er (Isosorbide Mononitrate) 60 Mg Tab.er.24h 60 Mg PO DAILY Norvasc (Amlodipine Besylate) 2.5 Mg Tablet 2.5 Mg PO DAILY Seroquel (Quetiapine Fumarate) 50 Mg Tablet 50 Mg PO BID Prilosec Otc (Omeprazole Magnesium) 20 Mg Tablet.dr 20 Mg PO DAILY [place] 10-325 Tablet (Hydrocodone Bit/Acetaminophen) 1 Each Tablet 1 Tab PO BID Levetiracetam 500 Mg Tablet 500 Mg PO BID Colace (Docusate Sodium) 100 Mg Capsule 100 Mg PO BID Remeron (Mirtazapine) 30 Mg Tablet 30 Mg PO QHS Carvedilol 12.5 Mg Tablet 12.5 Mg PO BID Vitamin B-12 (Cyanocobalamin (Vitamin B-12)) 1,000 Mcg Tablet 1,000 Mcg PO DAILY Lisinopril 40 Mg Tablet 40 Mg PO DAILY Ferrous Sulfate 325 Mg Tablet 325 Mg PO BID Atorvastatin Calcium 40 Mg Tablet 40 Mg PO QHS Detrol La (Tolterodine Tartrate) 2 Mg Cap.er.24h 2 Mg PO BID Zoloft (Sertraline Hcl) 100 Mg Tablet 200 Mg PO DAILY Aspir-Low (Aspirin) 81 Mg Tablet.dr 81 Mg PO DAILY Dicyclomine Hcl 20 Mg Tablet 20 Mg PO DAILY I have reviewed the current psychotropics carefully including drug interactions. Risk benefit ratio favors no change other than as noted in my dictated progress note. Diagnosis: Problems: (1) Anxiety disorder (2) Dementia, vascular, with delusions (3) Dementia, vascular, with depression (4) Major depressive disorder, recurrent episode JUAN MILLER MD Jun 01, 2018 20:48
--- NOTE | 2018-06-02 03:32 | PN ---
DATE: 05/31/2018 This is a late entry for 05/31/2018 covers elements not covered in my initial note. SUBJECTIVE: I met with the patient in the evening at some length. The patient slept 7-3/4 hours previous evening. She remains somewhat withdrawn, spends much time in her room. REVIEW OF SYSTEMS: No CV, , pulmonary, eye system symptoms on review. Gait unsteady, in wheelchair. MENTAL STATUS EXAM: Oriented to herself and situation. Speech has some latency, coherent. Abstraction fair, computation impaired, language function intact, attention span short. Mood and affect remain somewhat depressed. No suicidal ideation. LABORATORY DATA: Reviewed. IMPRESSION: Major depressive disorder, recurrent. Rest unchanged. PLAN: Zoloft was reduced to 100 mg a day, augmented with Wellbutrin-XL 150 mg a day. Continue Remeron, Seroquel at current dosage and she is also on Risperdal. We will consider stopping this. JUAN MILLER MD DR: DELILAH/nathan JOB#: [id number] / [id number]
[2018-06-02 06:33] VITALS: BP 122/82
[2018-06-02] MEDS: predniSONE 10 MG TABLET PO SCH (07:48)
[2018-06-02] MEDS: SMZ/TMP 800/160MG TABLET. PO SCH ×2 (07:48→20:33)
[2018-06-02] MEDS: levETIRAcetam 500 MG TABLET PO SCH ×2 (07:48→20:33)
[2018-06-02] MEDS: LISINOPRIL 20 MG TABLET PO SCH (07:48)
[2018-06-02] MEDS: OXYBUTYNIN CHLORIDE 5 MG TABLET PO SCH ×3 (07:49→20:34)
[2018-06-02] MEDS: HYDROcodone/APAP 5/325MG 1 TAB TABLET PO PRN ×2 (07:49→17:29)
[2018-06-02] MEDS: HYDROcodone/APAP 10/325 1 TAB TABLET PO SCH ×2 (07:49→20:37)
[2018-06-02] MEDS: buPROPion XL 150 MG TAB.ER.24H PO SCH (07:49)
[2018-06-02] MEDS: ASPIRIN ENTERIC COATED 81 MG TABLET.DR. PO SCH (07:49)
[2018-06-02] MEDS: FERROUS SULFATE 325 MG TABLET. PO SCH ×2 (07:49→20:33)
[2018-06-02] MEDS: DOCUSATE SODIUM 100 MG CAPSULE PO SCH ×2 (07:49→20:33)
[2018-06-02] MEDS: ISOSORBIDE MONONITRATE ER 30 MG TAB.ER.24H PO SCH (07:50)
[2018-06-02] MEDS: CYANOCOBALAMIN (VITAMIN B-12) 1,000 MCG TABLET. PO SCH (07:50)
[2018-06-02] MEDS: POTASSIUM CHLORIDE 20 MEQ TABLET.ER. PO SCH ×2 (07:51→17:29)
[2018-06-02] MEDS: DICYCLOMINE HCL 20 MG TABLET PO SCH (07:51)
[2018-06-02] MEDS: FUROSEMIDE 20 MG TABLET PO SCH ×2 (07:51→20:33)
[2018-06-02] MEDS: SERTRALINE 100 MG TABLET. PO SCH (07:51)
[2018-06-02] MEDS: amLODIPine BESYLATE 2.5 MG TABLET PO SCH (07:51)
[2018-06-02] MEDS: CARVEDILOL 12.5 MG TABLET PO SCH ×2 (07:52→17:29)
[2018-06-02] MEDS: LACTOBACILLUS RHAMNOSUS GG 1 CAPSULE. PO SCH ×2 (07:52→20:33)
[2018-06-02] MEDS: PANTOPRAZOLE 40 MG TABLET. PO SCH (07:54)
[2018-06-02] MEDS: QUEtiapine 50 MG TABLET. PO SCH ×2 (07:54→14:22)
[2018-06-02] MEDS: MAGNESIUM HYDROXIDE 2,400 MG/30 ML ORAL.SUSP. PO PRN (11:29)
[2018-06-02 16:19] VITALS: BP 91/56
--- NOTE | 2018-06-02 17:21 | RAD ---
KUB History: Left lower quadrant pain Comparison: None. Findings: 2 AP views of the abdomen are submitted, one labeled as being supine, the other not labeled as to being upright or supine. There is some lucency along the right abdomen. There is retained stool in the colon. There are multiple phleboliths in the pelvis. There are clips in the right upper quadrant of the abdomen. There could be splenomegaly. Impression: 1. Bowel is not considered significantly dilated. There is some lucency along the right lateral abdominal region otherwise difficult to characterize, uncertain if possibly related to skinfold. If there is any clinical suspicion for free air, CT evaluation should be considered. Findings were discussed with nurse Colleen 06/02/2018 at 17:17. Electronically signed by: Joshua Agosto MD (06/02/2018 5:17 PM) [id number]
[2018-06-02] MEDS: ATORVASTATIN CALCIUM 20 MG TABLET PO SCH (20:33)
[2018-06-02] MEDS: MIRTAZAPINE 30 MG TABLET PO SCH (20:33)
[2018-06-02] MEDS: QUEtiapine 100 MG TABLET. PO SCH (20:33)
--- NOTE | 2018-06-02 22:56 | PN ---
DATE: 06/01/2018 PSYCHIATRIC PROGRESS NOTE This late entry 06/01/2018 covers elements not covered in my initial note. SUBJECTIVE: I met with the patient in the evening. The patient slept 7-1/4 hours previous evening. She has been somewhat brighter, but nursing report a little more interactive. Denies active suicidal ideation. REVIEW OF SYSTEMS: Ambulation impaired, in wheelchair. No CV, , pulmonary, eye, ENT system symptoms on review. MENTAL STATUS EXAM: Oriented to herself and situation. Speech has some latency, coherent. Abstraction fair. Computation, able to do one step on serial 7's. Short term memory is impaired. No active suicidal or homicidal ideation. Mood is still dysphoric, depressed, anxious, but no active suicidal ideation and affect is mood congruent. IMPRESSION: Major depressive disorder, recurrent, in partial remission; cognitive disorder, unspecified. PLAN: Continue Zoloft 100 mg a day, Wellbutrin-XL 150 mg a day, Seroquel at current dosage. She is also on Risperdal, we may stop it in the next day or so. Continue Remeron 30 mg at bedtime, may need to increase Wellbutrin depending on her progress. JUAN MILLER MD DR: DELILAH/nathan JOB#: [id number] / [id number]
[2018-06-03 06:26] VITALS: BP 137/61
[2018-06-03] MEDS: ISOSORBIDE MONONITRATE ER 30 MG TAB.ER.24H PO SCH (07:56)
[2018-06-03] MEDS: predniSONE 10 MG TABLET PO SCH (07:56)
[2018-06-03] MEDS: buPROPion XL 150 MG TAB.ER.24H PO SCH (07:56)
[2018-06-03] MEDS: levETIRAcetam 500 MG TABLET PO SCH ×2 (07:57→19:16)
[2018-06-03] MEDS: DOCUSATE SODIUM 100 MG CAPSULE PO SCH ×2 (07:57→19:16)
[2018-06-03] MEDS: POTASSIUM CHLORIDE 20 MEQ TABLET.ER. PO SCH ×2 (07:57→17:35)
[2018-06-03] MEDS: DICYCLOMINE HCL 20 MG TABLET PO SCH (07:57)
[2018-06-03] MEDS: amLODIPine BESYLATE 2.5 MG TABLET PO SCH (07:57)
[2018-06-03] MEDS: QUEtiapine 50 MG TABLET. PO SCH ×2 (07:57→13:53)
[2018-06-03] MEDS: LISINOPRIL 20 MG TABLET PO SCH (07:57)
[2018-06-03] MEDS: ASPIRIN ENTERIC COATED 81 MG TABLET.DR. PO SCH (07:58)
[2018-06-03] MEDS: FERROUS SULFATE 325 MG TABLET. PO SCH ×2 (07:58→19:16)
[2018-06-03] MEDS: LACTOBACILLUS RHAMNOSUS GG 1 CAPSULE. PO SCH ×2 (07:58→19:15)
[2018-06-03] MEDS: SERTRALINE 100 MG TABLET. PO SCH (07:58)
[2018-06-03] MEDS: OXYBUTYNIN CHLORIDE 5 MG TABLET PO SCH ×3 (07:58→19:15)
[2018-06-03] MEDS: PANTOPRAZOLE 40 MG TABLET. PO SCH (07:58)
[2018-06-03] MEDS: FUROSEMIDE 20 MG TABLET PO SCH ×2 (07:58→19:16)
[2018-06-03] MEDS: CYANOCOBALAMIN (VITAMIN B-12) 1,000 MCG TABLET. PO SCH (07:58)
[2018-06-03] MEDS: SMZ/TMP 800/160MG TABLET. PO SCH ×2 (07:58→19:15)
[2018-06-03] MEDS: CARVEDILOL 12.5 MG TABLET PO SCH ×2 (07:58→17:35)
[2018-06-03] MEDS: HYDROcodone/APAP 10/325 1 TAB TABLET PO SCH ×2 (08:01→19:15)
[2018-06-03 16:31] VITALS: BP 108/67
[2018-06-03] MEDS: MAGNESIUM HYDROXIDE 2,400 MG/30 ML ORAL.SUSP. PO PRN (17:36)
[2018-06-03] MEDS ORDERED: MAGNESIUM CITRATE 296 ML SOLUTION. PO ONE (19:15)
[2018-06-03] MEDS: QUEtiapine 100 MG TABLET. PO SCH (19:15)
[2018-06-03] MEDS: ATORVASTATIN CALCIUM 20 MG TABLET PO SCH (19:15)
[2018-06-03] MEDS: HYDROcodone/APAP 5/325MG 1 TAB TABLET PO PRN (19:15)
[2018-06-03] MEDS: MIRTAZAPINE 30 MG TABLET PO SCH (19:16)
--- NOTE | 2018-06-03 23:17 | PDOC ---
Exam Note: Alek Note: Please also refer to the separate dictated note~for this date of service dictated separately.~Patient seen individually. Discussed the patient with Nursing staff reviewed the chart.~Reviewed interim history and current functioning. Reviewed vital signs,~Labs/ Radiology~and current medications noted below. Continue current treatment with the changes noted in the dictated addendum note Assessment: Vital Signs: Vital Signs Date Time Temp Pulse Resp B/P (MAP) Pulse Ox O2 Delivery O2 Flow Rate FiO2 06/03/18 20:15 18 93 06/03/18 17:35 76 108/67 06/03/18 16:31 97.0 06/03/18 10:45 Room Air I&O Intake and Output 06/03/18 07:00 Intake Total 560 ml Balance 560 ml Intake Oral 560 ml Current Medications: Meds: Current Medications Acetaminophen (Tylenol) 650 mg PRN Q6HRS PRN PO PAIN / TEMP Last administered on 05/30/18at 05:37; Start 05/29/18 at 06:00 Multi-Ingredient Ointment (Analgesic [place]) 1 abel PRN QID PRN TP MUSCLE PAIN; Start 05/29/18 at 06:00 Al Hydroxide/Mg Hydroxide (Mylanta Plus Xs) 15 ml PRN AFTMEALHC PRN PO DYSPEPSIA; Start 05/29/18 at 06:00; Status Cancel Magnesium Hydroxide (Milk Of Magnesia) 2,400 mg PRN QHS PRN PO CONSTIPATION; Start 05/29/18 at 06:00; Stop 05/29/18 at 07:16; Status DC Mirtazapine (Remeron) 30 mg QHS PO Last administered on 06/03/18at 19:16; Start 05/29/18 at 21:00 Sertraline HCl (Zoloft) 200 mg DAILY PO Last administered on 05/30/18at 08:11; Start 05/29/18 at 09:00; Stop 05/30/18 at 17:07; Status DC Quetiapine Fumarate (SEROquel) 50 mg [id number] PO Last administered on 06/03/18at 13:53; Start 05/29/18 at 09:00 Quetiapine Fumarate (SEROquel) 100 mg QHS PO Last administered on 06/03/18at 19 :15; Start 05/29/18 at 21:00 Risperidone (RisperDAL) 0.5 mg QHS PO Last administered on 05/29/18at 20:32; Start 05/29/18 at 21:00; Stop 05/30/18 at 16:48; Status DC Acetaminophen (Tylenol) 650 mg PRN Q6HRS PRN PO PAIN; Start 05/29/18 at 07:15 ; Status Cancel Cyanocobalamin (Vitamin B-12) 1,000 mcg DAILY PO Last administered on at 07:58; Start 05/29/18 at 09:00 Ferrous Sulfate (Feosol) 325 mg BID PO Last administered on 06/03/18at 19:16; Start 05/29/18 at 09:00 Furosemide (Lasix) 20 mg BID PO Last administered on 06/03/18 19:16; Start 05/29/18 at 09:00 Guaifenesin (Mucinex Er) 600 mg PRN BID PRN PO COUGH; Start 05/29/18 at 07:15 Albuterol/ Ipratropium (Duoneb) 3 ml PRN Q4HRS PRN NEB SHORTNESS OF BREATH; Start 05/29/18 at 07:15 Magnesium Hydroxide (Milk Of Magnesia) 800 mg PRN Q6HRS PRN PO CONSTIPATION Last administered on 06/03/18at 17:36; Start 05/29/18 at 07:15 Nitroglycerin (Nitrostat) 0.4 mg PRN Q5MIN PRN SL CHEST PAIN; Start 05/29/18 at 07:15 Prednisone (Prednisone) 10 mg DAILY PO Last administered on 06/03/18at 07:56; Start 05/29/18 at 09:00 Non-Formulary Medication (Albuterol Sulfate (Albuterol Sulfate Conc Neb Soln)) 1.25 mg PRN Q6HRS PRN NEB SHORTNESS OF BREATH; Start 05/29/18 at 07:15; Status UNV Amlodipine Besylate (Norvasc) 2.5 mg DAILY PO Last administered on 06/03/18at 07:57; Start 05/29/18 at 09:00 Aspirin (Aspirin Enteric Coated) 81 mg [id number] PO Last administered on 06/03at 07:58; Start 05/29/18 at 08:00 Atorvastatin Calcium (Lipitor) 40 mg QHS PO Last administered on 06/03/18 19: 15; Start 05/29/18 at 21:00 Benzonatate (Tessalon Perle) 200 mg PRN TID PRN PO COUGH; Start 05/29/18 at 07 :15 Carvedilol (Coreg) 12.5 mg BIDWMEALS PO Last administered on 06/03/18 17:35; Start 05/29/18 at 08:00 Dicyclomine HCl (Bentyl) 20 mg DAILY PO Last administered on 06/03/18 07:57; Start 05/29/18 at 09:00 Docusate Sodium (Colace) 100 mg BID PO Last administered on 06/03/18 19:16; Start 05/29/18 at 09:00 Acetaminophen/ Hydrocodone Bitart (Lortab 10/325) 1 tab BID PO Last administered on 06/03/18 19:15; Start 05/29/18 at 09:00 Acetaminophen/ Hydrocodone Bitart (Lortab 5/325) 1 tab PRN BID PRN PO PAIN Last administered on 06/02/18 17:29; Start 05/29/18 at 07:30 Isosorbide Mononitrate (Imdur) 60 mg DAILY PO Last administered on 06/03/18 07:56; Start 05/29/18 at 09:00 Levetiracetam (Keppra) 500 mg BID PO Last administered on 06/03/18 19:16; Start 05/29/18 at 09:00 Lisinopril (Prinivil) 40 mg DAILY PO Last administered on 06/03/18 07:57; Start 05/29/18 at 09:00 Al Hydroxide/Mg Hydroxide (Mylanta Plus Xs) 30 ml PRN Q2HR PRN PO INDIGESTION; Start 05/29/18 at 07:15 Pantoprazole Sodium (Protonix) 40 mg DAILYAC PO Last administered on 07:58; Start 05/29/18 at 07:30 Potassium Chloride (Klor-Con) 20 meq BIDWMEALS PO Last administered on 17:35; Start 05/29/18 at 08:00 Oxybutynin Chloride (Ditropan) 5 mg [id number] PO Last administered on 10/16/18at 19:15; Start 05/29/18 at 09:00 Albuterol Sulfate (Ventolin) 1.25 mg PRN Q6HRS PRN NEB SHORTNESS OF BREATH; Start 05/29/18 at 07:45 Vitamin D (Vitamin D3) 50,000 unit WEEKLY PO Last administered on 05/30/18at 08 :16; Start 05/30/18 at 09:00 Trimethoprim/ Sulfamethoxazole (Bactrim Ds) 1 tab BID PO Last administered on 06/03/18at 19:15; Start 05/30/18 at 21:00; Stop 06/09/18 at 20:59 Lactobacillus Rhamnosus (Culturelle) 1 cap BID PO Last administered on at 19:15; Start 05/30/18 at 21:00 Risperidone (RisperDAL) 0.25 mg QHS PO Last administered on 06/01/18at 20:17; Start 05/30/18 at 21:00; Stop 06/02/18 at 16:36; Status DC Sertraline HCl (Zoloft) 100 mg DAILY PO Last administered on 06/03/18at 07:58; Start 05/31/18 at 09:00 Bupropion HCl (Wellbutrin Xl) 150 mg DAILY PO Last administered on 06/03/18at 07:56; Start 05/31/18 at 09:00 Influenza Virus Vaccine (Afluria Trivalent Syringe) 0.5 ml ONCE ONCE VAX IM ; Start 06/03/18 at 09:00; Stop 06/03/18 at 09:00; Status DC Influenza Virus Vaccine (Afluria Trivalent Syringe) 0.5 ml ONCE ONCE VAX IM ; Start 06/03/18 at 09:00; Stop 06/03/18 at 09:01; Status DC Influenza Virus Vaccine (Afluria Trivalent Syringe) 0.5 ml ONCE ONCE VAX IM ; Start 06/04/18 at 09:00; Stop 06/04/18 at 09:01 Magnesium Citrate (Citroma) 296 ml 1X ONCE PO Last administered on 06/03/18at 19:21; Start 06/03/18 at 19:15; Stop 06/03/18 at 19:18; Status DC Active Scripts Active Reported Albuterol Sulfate Conc Neb Soln (Albuterol Sulfate) 2.5 Mg/0.5 Ml Vial.neb 1.25 Mg NEB PRN Q6HRS PRN [place] 5-325 Tablet (Hydrocodone Bit/Acetaminophen) 1 Each Tablet 1 Tab PO PRN BID PRN Duoneb 0.5-3(2.5) Mg/3 Ml (Albuterol/Ipratropium) 3 Ml Ampul.neb 3 Ml NEB PRN Q4HRS PRN Tessalon Perle (Benzonatate) 100 Mg Capsule 200 Mg PO PRN TID PRN Mucinex (Guaifenesin) 600 Mg Tablet.er 600 Mg PO PRN BID PRN Antacid Liquid (Mag Hydrox/Al Hydrox/Simeth) 355 Ml Oral.susp 30 Ml PO PRN Q2HR PRN Milk Of Magnesia (Magnesium Hydroxide) 400 Mg/5 Ml Oral.susp 10 Ml PO PRN Q6HRS PRN Tylenol (Acetaminophen) 325 Mg Tablet 1-2 Tab PO PRN Q6HRS PRN NITROGLYCERIN SubLingual (Nitroglycerin) 0.4 Mg Tab.subl 0.4 Mg SL PRN Q5MIN PRN do not exceed 3 tabs per episode Prednisone 10 Mg Tablet 10 Mg PO DAILY Potassium Chloride 20 Meq Tablet.er 20 Meq PO BID Lasix (Furosemide) 20 Mg Tablet 20 Mg PO BID Seroquel (Quetiapine Fumarate) 100 Mg Tablet 100 Mg PO QHS Risperdal (Risperidone) 0.5 Mg Tablet 0.5 Mg PO QHS Isosorbide Mononitrate Er (Isosorbide Mononitrate) 60 Mg Tab.er.24h 60 Mg PO DAILY Norvasc (Amlodipine Besylate) 2.5 Mg Tablet 2.5 Mg PO DAILY Seroquel (Quetiapine Fumarate) 50 Mg Tablet 50 Mg PO BID Prilosec Otc (Omeprazole Magnesium) 20 Mg Tablet.dr 20 Mg PO DAILY [place] 10-325 Tablet (Hydrocodone Bit/Acetaminophen) 1 Each Tablet 1 Tab PO BID Levetiracetam 500 Mg Tablet 500 Mg PO BID Colace (Docusate Sodium) 100 Mg Capsule 100 Mg PO BID Remeron (Mirtazapine) 30 Mg Tablet 30 Mg PO QHS Carvedilol 12.5 Mg Tablet 12.5 Mg PO BID Vitamin B-12 (Cyanocobalamin (Vitamin B-12)) 1,000 Mcg Tablet 1,000 Mcg PO DAILY Lisinopril 40 Mg Tablet 40 Mg PO DAILY Ferrous Sulfate 325 Mg Tablet 325 Mg PO BID Atorvastatin Calcium 40 Mg Tablet 40 Mg PO QHS Detrol La (Tolterodine Tartrate) 2 Mg Cap.er.24h 2 Mg PO BID Zoloft (Sertraline Hcl) 100 Mg Tablet 200 Mg PO DAILY Aspir-Low (Aspirin) 81 Mg Tablet.dr 81 Mg PO DAILY Dicyclomine Hcl 20 Mg Tablet 20 Mg PO DAILY I have reviewed the current psychotropics carefully including drug interactions. Risk benefit ratio favors no change other than as noted in my dictated progress note. Diagnosis: Problems: (1) Anxiety disorder (2) Dementia, vascular, with delusions (3) Dementia, vascular, with depression (4) Major depressive disorder, recurrent episode JUAN MILLER MD Jun 03, 2018 23:17
--- NOTE | 2018-06-04 04:55 | PN ---
DATE: 06/02/2018 This is a late entry for 06/02/2018 covers elements not covered in my initial note. SUBJECTIVE: I met with the patient in the evening. The patient slept 7-1/2 hours previous evening, somewhat withdrawn, sedated at times. Complains of abdominal pain. KUB shows some fecal matter, but not excessive. She has received milk of mag. I will defer to Dr. Rouse. REVIEW OF SYSTEMS: Positive for the left lower abdominal pain, impaired ambulation. No CV, , pulmonary, eye system symptoms on review. MENTAL STATUS EXAM: Reasonably oriented. Speech has some latency, coherent. Abstraction fair. Computation able to do one step serial sevens, remember 2/3 objects at 5 minutes. No active suicidal or homicidal ideation. Mood is improved. Affect is mood congruent. LABORATORY DATA: Reviewed. IMPRESSION: Major depressive disorder in partial remission; cognitive disorder, unspecified. PLAN: Defer medical management to Dr. oRuse. The patient is on Seroquel and Risperdal. We will stop the Risperdal given a history of CVA and risk/benefit ratio to avoid two atypicals in combination. Maintain Zoloft, Remeron, Wellbutrin at current dosage. MAN Mamadou MILLER MD DR: DELILAH/nathan JOB#: [id number] / [id number]
[2018-06-04 06:04] VITALS: BP 110/61
[2018-06-04] MEDS: buPROPion XL 150 MG TAB.ER.24H PO SCH (08:35)
[2018-06-04] MEDS: OXYBUTYNIN CHLORIDE 5 MG TABLET PO SCH ×3 (08:36→19:32)
[2018-06-04] MEDS: PANTOPRAZOLE 40 MG TABLET. PO SCH (08:36)
[2018-06-04] MEDS: amLODIPine BESYLATE 2.5 MG TABLET PO SCH (08:36)
[2018-06-04] MEDS: levETIRAcetam 500 MG TABLET PO SCH ×2 (08:36→19:33)
[2018-06-04] MEDS: LISINOPRIL 20 MG TABLET PO SCH (08:37)
[2018-06-04] MEDS: POTASSIUM CHLORIDE 20 MEQ TABLET.ER. PO SCH ×2 (08:39→16:47)
[2018-06-04] MEDS: CARVEDILOL 12.5 MG TABLET PO SCH ×2 (08:39→16:47)
[2018-06-04] MEDS: DICYCLOMINE HCL 20 MG TABLET PO SCH (08:39)
[2018-06-04] MEDS: QUEtiapine 50 MG TABLET. PO SCH ×2 (08:39→14:13)
[2018-06-04] MEDS: ISOSORBIDE MONONITRATE ER 30 MG TAB.ER.24H PO SCH (08:40)
[2018-06-04] MEDS: DOCUSATE SODIUM 100 MG CAPSULE PO SCH ×2 (08:40→19:31)
[2018-06-04] MEDS: FERROUS SULFATE 325 MG TABLET. PO SCH ×2 (08:40→19:32)
[2018-06-04] MEDS: FUROSEMIDE 20 MG TABLET PO SCH ×2 (08:40→19:33)
[2018-06-04] MEDS: LACTOBACILLUS RHAMNOSUS GG 1 CAPSULE. PO SCH ×2 (08:41→19:31)
[2018-06-04] MEDS: SMZ/TMP 800/160MG TABLET. PO SCH ×2 (08:41→19:30)
[2018-06-04] MEDS: SERTRALINE 100 MG TABLET. PO SCH (08:41)
[2018-06-04] MEDS: CYANOCOBALAMIN (VITAMIN B-12) 1,000 MCG TABLET. PO SCH (08:41)
[2018-06-04] MEDS: predniSONE 10 MG TABLET PO SCH (08:41)
[2018-06-04] MEDS: ASPIRIN ENTERIC COATED 81 MG TABLET.DR. PO SCH (08:41)
[2018-06-04] MEDS: HYDROcodone/APAP 10/325 1 TAB TABLET PO SCH ×2 (08:43→19:36)
[2018-06-04] MEDS: HYDROcodone/APAP 5/325MG 1 TAB TABLET PO PRN (12:05)
[2018-06-04 16:31] VITALS: BP 94/54
[2018-06-04] MEDS: ACETAMINOPHEN 325 MG TABLET PO PRN ×2 (16:50→19:30)
--- NOTE | 2018-06-04 18:27 | RAD ---
CT abdomen pelvis without intravenous contrast History: Persistent left lower quadrant pain with constipation. Comparison: None. Technique: CT of the abdomen and pelvis was performed without intravenous or oral contrast. Exposure: One or more of the following individualized dose reduction techniques were utilized for this examination: 1. Automated exposure control 2. Adjustment of the mA and/or kV according to patient size 3. Use of iterative reconstruction technique Findings: Evaluation of solid organs is limited by lack of intravenous contrast. Evaluation of enteric structures may be limited by lack of oral contrast. Liver appears small. Right hepatic lobe near the dome demonstrates 1.5 cm low-density lesion, not adequately characterized. Spleen is unremarkable. Pancreas is without evidence of inflammation. There is a calcification in the right upper quadrant (axial image 60 and coronal image 43) measuring 7 mm, possibly stone at the ampulla of Vater. Correlate for biliary obstruction. Infrarenal abdominal aortic ectasia is seen with a maximum dimension 2.2 cm. Aortic atherosclerosis is seen. Bilateral kidneys are without evidence of obstruction. Interpolar region of the right kidney demonstrates 2 mm nonobstructive nephrolith. Urinary bladder is unremarkable. Uterus is absent. Postsurgical changes of right hemicolectomy can be seen. There is no evidence of bowel obstruction at the ileocolic anastomosis. Urinary bladder is unremarkable. Left upper hemipelvis demonstrates a bilobed low-density cystic-appearing lesion measuring roughly 8 x 6 cm in axial dimension x 10 cm in craniocaudal dimension. This is thought to arise from the left ovary and is favored represent cystic ovarian neoplasm. No ascites is seen. Degenerative changes are present in the spine. Grade 1 spondylolisthesis is seen at L4-5 from facet hypertrophy. Impression: 1. Large cystic lesion left lower quadrant, favored to be ovarian in origin. 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 2. Calcification is seen in the right upper quadrant at expected location of the ampulla of Vater. Correlate for biliary obstruction as this may may represent choledocholith. 3. Right hemicolectomy changes. No evidence of obstruction at the ileocolic anastomosis. 4. Liver appears small, suggesting cirrhosis. Low-density liver lesion, not adequately characterized. Elective, nonemergent evaluation could be made with multiphase CT versus ultrasound. Electronically signed by: Evaristo White MD (06/04/2018 6:24 PM) [facility]
[2018-06-04] MEDS: ATORVASTATIN CALCIUM 20 MG TABLET PO SCH (19:33)
[2018-06-04] MEDS: MIRTAZAPINE 30 MG TABLET PO SCH (19:36)
[2018-06-04] MEDS: QUEtiapine 100 MG TABLET. PO SCH (19:36)
--- NOTE | 2018-06-04 22:53 | PN ---
DATE: 06/03/2018 PSYCHIATRIC PROGRESS NOTE This late entry 06/03/2018 covers elements not covered in my initial note. SUBJECTIVE: I met with the patient in the evening. The patient slept 7-1/2 hours previous night. She was tearful in the morning, but better rest of the day. Less delusional regarding her trying to hurt her. REVIEW OF SYSTEMS: Ambulation impaired, in wheelchair. No CV, , pulmonary, eye, ENT system symptoms on review. MENTAL STATUS EXAM: Oriented to herself and situation. Speech, moderate latency, often responses monosyllabic. Abstraction fair, computation impaired, language function intact, attention span short. Mood and affect less depressed. I questioned her very pointedly about suicidal ideation, she thoroughly denied these at this time and wants to return back to the nursing facility. LABORATORY DATA: Reviewed. IMPRESSION: Major depressive disorder in partial remission; anxiety disorder, unspecified. PLAN: Continue psychotropics from initial note, Zoloft 100 mg a day, Wellbutrin-XL 150 mg a day, Seroquel 50 b.i.d. and 100 at bedtime, Remeron 30 mg at bedtime. [facility]. JUAN MILLER MD DR: DELILAH/nathan JOB#: [id number] / [id number]
--- NOTE | 2018-06-04 23:22 | PDOC ---
Exam Note: Alek Note: Please also refer to the separate dictated note~for this date of service dictated separately.~Patient seen individually. Discussed the patient with Nursing staff reviewed the chart.~Reviewed interim history and current functioning. Reviewed vital signs,~Labs/ Radiology~and current medications noted below. Continue current treatment with the changes noted in the dictated addendum note Assessment: Vital Signs: Vital Signs Date Time Temp Pulse Resp B/P (MAP) Pulse Ox O2 Delivery O2 Flow Rate FiO2 06/04/18 20:45 16 Room Air 06/04/18 16:47 62 94/54 06/04/18 16:31 98.7 96 I&O Intake and Output 06/04/18 07:00 Intake Total 1200 ml Balance 1200 ml Intake Oral 1200 ml Current Medications: Meds: Current Medications Acetaminophen (Tylenol) 650 mg PRN Q6HRS PRN PO PAIN / TEMP Last administered on 06/04/18at 16:50; Start 05/29/18 at 06:00 Multi-Ingredient Ointment (Analgesic [place]) 1 abel PRN QID PRN TP MUSCLE PAIN; Start 05/29/18 at 06:00 Al Hydroxide/Mg Hydroxide (Mylanta Plus Xs) 15 ml PRN AFTMEALHC PRN PO DYSPEPSIA; Start 05/29/18 at 06:00; Status Cancel Magnesium Hydroxide (Milk Of Magnesia) 2,400 mg PRN QHS PRN PO CONSTIPATION; Start 05/29/18 at 06:00; Stop 05/29/18 at 07:16; Status DC Mirtazapine (Remeron) 30 mg QHS PO Last administered on 06/04/18at 19:36; Start 05/29/18 at 21:00 Sertraline HCl (Zoloft) 200 mg DAILY PO Last administered on 05/30/18at 08:11; Start 05/29/18 at 09:00; Stop 05/30/18 at 17:07; Status DC Quetiapine Fumarate (SEROquel) 50 mg [id number] PO Last administered on 06/04/18at 14:13; Start 05/29/18 at 09:00 Quetiapine Fumarate (SEROquel) 100 mg QHS PO Last administered on 06/04/18at 19 :36; Start 05/29/18 at 21:00 Risperidone (RisperDAL) 0.5 mg QHS PO Last administered on 05/29/18at 20:32; Start 05/29/18 at 21:00; Stop 05/30/18 at 16:48; Status DC Acetaminophen (Tylenol) 650 mg PRN Q6HRS PRN PO PAIN; Start 05/29/18 at 07:15 ; Status Cancel Cyanocobalamin (Vitamin B-12) 1,000 mcg DAILY PO Last administered on at 08:41; Start 05/29/18 at 09:00 Ferrous Sulfate (Feosol) 325 mg BID PO Last administered on 06/04/18 19:32; Start 05/29/18 at 09:00 Furosemide (Lasix) 20 mg BID PO Last administered on 06/04/18 19:33; Start 05/29/18 at 09:00 Guaifenesin (Mucinex Er) 600 mg PRN BID PRN PO COUGH; Start 05/29/18 at 07:15 Albuterol/ Ipratropium (Duoneb) 3 ml PRN Q4HRS PRN NEB SHORTNESS OF BREATH; Start 05/29/18 at 07:15 Magnesium Hydroxide (Milk Of Magnesia) 800 mg PRN Q6HRS PRN PO CONSTIPATION Last administered on 06/03/18 17:36; Start 05/29/18 at 07:15 Nitroglycerin (Nitrostat) 0.4 mg PRN Q5MIN PRN SL CHEST PAIN; Start 05/29/18 at 07:15 Prednisone (Prednisone) 10 mg DAILY PO Last administered on 06/04/18 08:41; Start 05/29/18 at 09:00 Non-Formulary Medication (Albuterol Sulfate (Albuterol Sulfate Conc Neb Soln)) 1.25 mg PRN Q6HRS PRN NEB SHORTNESS OF BREATH; Start 05/29/18 at 07:15; Status UNV Amlodipine Besylate (Norvasc) 2.5 mg DAILY PO Last administered on 06/04/18at 08:36; Start 05/29/18 at 09:00 Aspirin (Aspirin Enteric Coated) 81 mg DAILYWBKFT PO Last administered on 06/04at 08:41; Start 05/29/18 at 08:00 Atorvastatin Calcium (Lipitor) 40 mg QHS PO Last administered on 06/04/18 19: 33; Start 05/29/18 at 21:00 Benzonatate (Tessalon Perle) 200 mg PRN TID PRN PO COUGH; Start 05/29/18 at 07 :15 Carvedilol (Coreg) 12.5 mg BIDWMEALS PO Last administered on 06/04/18 16:47; Start 05/29/18 at 08:00 Dicyclomine HCl (Bentyl) 20 mg DAILY PO Last administered on 06/04/18at 08:39; Start 05/29/18 at 09:00 Docusate Sodium (Colace) 100 mg BID PO Last administered on 06/04/18 19:31; Start 05/29/18 at 09:00 Acetaminophen/ Hydrocodone Bitart (Lortab 10/325) 1 tab BID PO Last administered on 06/04/18 19:36; Start 05/29/18 at 09:00 Acetaminophen/ Hydrocodone Bitart (Lortab 5/325) 1 tab PRN BID PRN PO PAIN Last administered on 06/04/18 12:05; Start 05/29/18 at 07:30 Isosorbide Mononitrate (Imdur) 60 mg DAILY PO Last administered on 06/04/18 08:40; Start 05/29/18 at 09:00 Levetiracetam (Keppra) 500 mg BID PO Last administered on 06/04/18 19:33; Start 05/29/18 at 09:00 Lisinopril (Prinivil) 40 mg DAILY PO Last administered on 06/04/18at 08:37; Start 05/29/18 at 09:00 Al Hydroxide/Mg Hydroxide (Mylanta Plus Xs) 30 ml PRN Q2HR PRN PO INDIGESTION; Start 05/29/18 at 07:15 Pantoprazole Sodium (Protonix) 40 mg DAILYAC PO Last administered on 08:36; Start 05/29/18 at 07:30 Potassium Chloride (Klor-Con) 20 meq BIDWMEALS PO Last administered on 16:47; Start 05/29/18 at 08:00 Oxybutynin Chloride (Ditropan) 5 mg [id number] PO Last administered on 06/04/18 19:32; Start 05/29/18 at 09:00 Albuterol Sulfate (Ventolin) 1.25 mg PRN Q6HRS PRN NEB SHORTNESS OF BREATH; Start 05/29/18 at 07:45 Vitamin D (Vitamin D3) 50,000 unit WEEKLY PO Last administered on 05/30/18at 08 :16; Start 05/30/18 at 09:00 Trimethoprim/ Sulfamethoxazole (Bactrim Ds) 1 tab BID PO Last administered on 06/04/18at 19:30; Start 05/30/18 at 21:00; Stop 06/09/18 at 20:59 Lactobacillus Rhamnosus (Culturelle) 1 cap BID PO Last administered on at 19:31; Start 05/30/18 at 21:00 Risperidone (RisperDAL) 0.25 mg QHS PO Last administered on 06/01/18at 20:17; Start 05/30/18 at 21:00; Stop 06/02/18 at 16:36; Status DC Sertraline HCl (Zoloft) 100 mg DAILY PO Last administered on 06/04/18at 08:41; Start 05/31/18 at 09:00 Bupropion HCl (Wellbutrin Xl) 150 mg DAILY PO Last administered on 06/04/18at 08:35; Start 05/31/18 at 09:00 Influenza Virus Vaccine (Afluria Trivalent [id number] Syringe) 0.5 ml ONCE ONCE VAX IM ; Start 06/03/18 at 09:00; Stop 06/03/18 at 09:00; Status DC Influenza Virus Vaccine (Afluria Trivalent Syringe) 0.5 ml ONCE ONCE VAX IM ; Start 06/03/18 at 09:00; Stop 06/03/18 at 09:01; Status DC Influenza Virus Vaccine (Afluria Trivalent Syringe) 0.5 ml ONCE ONCE VAX IM Last administered on 06/04/18at 14:17; Start 06/04/18 at 09:00; Stop 06/04/18 at 09:01; Status DC Magnesium Citrate (Citroma) 296 ml 1X ONCE PO Last administered on 06/03/18at 19:21; Start 06/03/18 at 19:15; Stop 06/03/18 at 19:18; Status DC Active Scripts Active Reported Albuterol Sulfate Conc Neb Soln (Albuterol Sulfate) 2.5 Mg/0.5 Ml Vial.neb 1.25 Mg NEB PRN Q6HRS PRN [place] 5-325 Tablet (Hydrocodone Bit/Acetaminophen) 1 Each Tablet 1 Tab PO PRN BID PRN Duoneb 0.5-3(2.5) Mg/3 Ml (Albuterol/Ipratropium) 3 Ml Ampul.neb 3 Ml NEB PRN Q4HRS PRN Tessalon Perle (Benzonatate) 100 Mg Capsule 200 Mg PO PRN TID PRN Mucinex (Guaifenesin) 600 Mg Tablet.er 600 Mg PO PRN BID PRN Antacid Liquid (Mag Hydrox/Al Hydrox/Simeth) 355 Ml Oral.susp 30 Ml PO PRN Q2HR PRN Milk Of Magnesia (Magnesium Hydroxide) 400 Mg/5 Ml Oral.susp 10 Ml PO PRN Q6HRS PRN Tylenol (Acetaminophen) 325 Mg Tablet 1-2 Tab PO PRN Q6HRS PRN NITROGLYCERIN SubLingual (Nitroglycerin) 0.4 Mg Tab.subl 0.4 Mg SL PRN Q5MIN PRN do not exceed 3 tabs per episode Prednisone 10 Mg Tablet 10 Mg PO DAILY Potassium Chloride 20 Meq Tablet.er 20 Meq PO BID Lasix (Furosemide) 20 Mg Tablet 20 Mg PO BID Seroquel (Quetiapine Fumarate) 100 Mg Tablet 100 Mg PO QHS Risperdal (Risperidone) 0.5 Mg Tablet 0.5 Mg PO QHS Isosorbide Mononitrate Er (Isosorbide Mononitrate) 60 Mg Tab.er.24h 60 Mg PO DAILY Norvasc (Amlodipine Besylate) 2.5 Mg Tablet 2.5 Mg PO DAILY Seroquel (Quetiapine Fumarate) 50 Mg Tablet 50 Mg PO BID Prilosec Otc (Omeprazole Magnesium) 20 Mg Tablet.dr 20 Mg PO DAILY [place] 10-325 Tablet (Hydrocodone Bit/Acetaminophen) 1 Each Tablet 1 Tab PO BID Levetiracetam 500 Mg Tablet 500 Mg PO BID Colace (Docusate Sodium) 100 Mg Capsule 100 Mg PO BID Remeron (Mirtazapine) 30 Mg Tablet 30 Mg PO QHS Carvedilol 12.5 Mg Tablet 12.5 Mg PO BID Vitamin B-12 (Cyanocobalamin (Vitamin B-12)) 1,000 Mcg Tablet 1,000 Mcg PO DAILY Lisinopril 40 Mg Tablet 40 Mg PO DAILY Ferrous Sulfate 325 Mg Tablet 325 Mg PO BID Atorvastatin Calcium 40 Mg Tablet 40 Mg PO QHS Detrol La (Tolterodine Tartrate) 2 Mg Cap.er.24h 2 Mg PO BID Zoloft (Sertraline Hcl) 100 Mg Tablet 200 Mg PO DAILY Aspir-Low (Aspirin) 81 Mg Tablet.dr 81 Mg PO DAILY Dicyclomine Hcl 20 Mg Tablet 20 Mg PO DAILY I have reviewed the current psychotropics carefully including drug interactions. Risk benefit ratio favors no change other than as noted in my dictated progress note. Diagnosis: Problems: (1) Anxiety disorder (2) Dementia, vascular, with delusions (3) Dementia, vascular, with depression (4) Major depressive disorder, recurrent episode JUAN MILLER MD Jun 04, 2018 23:22
[2018-06-05 06:07] VITALS: BP 98/56
[2018-06-05 06:49] LABS: BASO % 0 % (0-3); EOS % 1 % (0-3); HEMATOCRIT 34.9 % (36.0-47.0); HEMOGLOBIN 11.4 g/dL (12.0-15.5); LYMPH # 1.1 x10^3/uL (1.0-4.8); LYMPH % 20 % (24-48); MEAN CORPUSCULAR HEMOGLOBIN 29 pg (25-35); MEAN CORPUSCULAR HGB CONC 33 g/dL (31-37); MEAN CORPUSCULAR VOLUME 88 fL (79-100); MONO # 0.7 x10^3/uL (0.0-1.1); MONO % 13 % (0-9); NEUT # 3.8 x10^3uL (1.8-7.7); NEUT % 66 % (31-73); PLATELET COUNT 128 x10^3/uL (140-400); RED BLOOD COUNT 3.96 x10^6/uL (3.50-5.40); WHITE BLOOD COUNT 5.7 x10^3/uL (4.0-11.0)
[2018-06-05 07:08] LABS: ALBUMIN 3.3 g/dL (3.4-5.0); TOTAL PROTEIN 6.5 g/dL (6.4-8.2)
[2018-06-05 07:09] LABS: CALCIUM 8.7 mg/dL (8.5-10.1); CREATININE 3.2 mg/dL (0.6-1.0); GFR 13.9; TOTAL BILIRUBIN 0.2 mg/dL (0.2-1.0)
[2018-06-05 07:16] LABS: POTASSIUM 6.3 mmol/L (3.5-5.1)
[2018-06-05] MEDS: CARVEDILOL 12.5 MG TABLET PO SCH (08:00)
[2018-06-05] MEDS ORDERED: CHOL500021 PO (08:44)
[2018-06-05] MEDS ORDERED: LACT1CAP19 PO (08:46)
[2018-06-05] MEDS: LACTOBACILLUS RHAMNOSUS GG 1 CAPSULE. PO SCH (08:48)
[2018-06-05] MEDS: levETIRAcetam 500 MG TABLET PO SCH (08:48)
[2018-06-05] MEDS: DOCUSATE SODIUM 100 MG CAPSULE PO SCH (08:48)
[2018-06-05] MEDS: ASPIRIN ENTERIC COATED 81 MG TABLET.DR. PO SCH (08:49)
[2018-06-05] MEDS: SERTRALINE 100 MG TABLET. PO SCH (08:49)
[2018-06-05] MEDS: QUEtiapine 50 MG TABLET. PO SCH (08:49)
[2018-06-05] MEDS: OXYBUTYNIN CHLORIDE 5 MG TABLET PO SCH (08:49)
[2018-06-05] MEDS: predniSONE 10 MG TABLET PO SCH (08:49)
[2018-06-05] MEDS: DICYCLOMINE HCL 20 MG TABLET PO SCH (08:49)
[2018-06-05] MEDS: buPROPion XL 150 MG TAB.ER.24H PO SCH (08:50)
[2018-06-05] MEDS: CYANOCOBALAMIN (VITAMIN B-12) 1,000 MCG TABLET. PO SCH (08:50)
[2018-06-05 08:51] VITALS: BP 98/56
[2018-06-05] MEDS: amLODIPine BESYLATE 2.5 MG TABLET PO SCH (08:51)
[2018-06-05] MEDS: FERROUS SULFATE 325 MG TABLET. PO SCH (08:51)
[2018-06-05] MEDS: PANTOPRAZOLE 40 MG TABLET. PO SCH (08:51)
[2018-06-05] MEDS: ISOSORBIDE MONONITRATE ER 30 MG TAB.ER.24H PO SCH (08:51)
[2018-06-05] MEDS ORDERED: BUPR150T15 PO (08:52)
[2018-06-05] MEDS: HYDROcodone/APAP 10/325 1 TAB TABLET PO SCH (08:53)
[2018-06-05 16:26] LABS: CALCIUM 8.3 mg/dL (8.5-10.1); CREATININE 2.3 mg/dL (0.6-1.0); GFR 20.4; POTASSIUM 5.6 mmol/L (3.5-5.1)
--- NOTE | 2018-06-05 18:10 | PDOC ---
Exam Note: Alek Note: Please also refer to the separate dictated note~for this date of service dictated separately.~Patient seen individually. Discussed the patient with Nursing staff reviewed the chart.~Reviewed interim history and current functioning. Reviewed vital signs,~Labs/ Radiology~and current medications noted below. Continue current treatment with the changes noted in the dictated addendum note Assessment: Vital Signs: Vital Signs Date Time Temp Pulse Resp B/P (MAP) Pulse Ox O2 Delivery O2 Flow Rate FiO2 06/05/18 08:53 18 97 Room Air 06/05/18 08:51 67 98/56 06/05/18 06:07 97.0 I&O Intake and Output 06/05/18 07:00 Intake Total 780 ml Balance 780 ml Intake Oral 780 ml Labs: Laboratory Tests Test 06/05/18 06:13 06/05/18 15:46 White Blood Count 5.7 x10^3/uL (4.0-11.0) Red Blood Count 3.96 x10^6/uL (3.50-5.40) Hemoglobin 11.4 g/dL (12.0-15.5) L Hematocrit 34.9 % (36.0-47.0) L Mean Corpuscular Volume 88 fL (79-100) Mean Corpuscular Hemoglobin 29 pg (25-35) Mean Corpuscular Hemoglobin Concent 33 g/dL (31-37) Red Cell Distribution Width 16.0 % (11.5-14.5) H Platelet Count 128 x10^3/uL (140-400) L Neutrophils (%) (Auto) 66 % (31-73) Lymphocytes (%) (Auto) 20 % (24-48) L Monocytes (%) (Auto) 13 % (0-9) H Eosinophils (%) (Auto) 1 % (0-3) Basophils (%) (Auto) 0 % (0-3) Neutrophils # (Auto) 3.8 x10^3uL (1.8-7.7) Lymphocytes # (Auto) 1.1 x10^3/uL (1.0-4.8) Monocytes # (Auto) 0.7 x10^3/uL (0.0-1.1) Eosinophils # (Auto) 0.0 x10^3/uL (0.0-0.7) Basophils # (Auto) 0.0 x10^3/uL (0.0-0.2) Sodium Level 138 mmol/L (136-145) 141 mmol/L (136-145) Potassium Level 6.3 mmol/L (3.5-5.1) *H 5.6 mmol/L (3.5-5.1) H Chloride Level 104 mmol/L (98-107) 106 mmol/L (98-107) Carbon Dioxide Level 25 mmol/L (21-32) 26 mmol/L (21-32) Anion Gap 9 (6-14) 9 (6-14) Blood Urea Nitrogen 54 mg/dL (7-20) H 46 mg/dL (7-20) H Creatinine 3.2 mg/dL (0.6-1.0) H 2.3 mg/dL (0.6-1.0) H Estimated GFR (Cockcroft-Gault) 13.9 20.4 BUN/Creatinine Ratio 17 (6-20) Glucose Level 83 mg/dL (70-99) 96 mg/dL (70-99) Calcium Level 8.7 mg/dL (8.5-10.1) 8.3 mg/dL (8.5-10.1) L Total Bilirubin 0.2 mg/dL (0.2-1.0) Aspartate Amino Transferase (AST) 17 U/L (15-37) Alanine Aminotransferase (ALT) 17 U/L (14-59) Alkaline Phosphatase 94 U/L (46-116) Total Protein 6.5 g/dL (6.4-8.2) Albumin 3.3 g/dL (3.4-5.0) L Albumin/Globulin Ratio 1.0 (1.0-1.7) Current Medications: Meds: Current Medications Acetaminophen (Tylenol) 650 mg PRN Q6HRS PRN PO PAIN / TEMP Last administered on 06/04/18at 16:50; Start 05/29/18 at 06:00; Stop 06/05/18 at 09:30; Status DC Multi-Ingredient Ointment (Analgesic [place]) 1 abel PRN QID PRN TP MUSCLE PAIN; Start 05/29/18 at 06:00; Stop 06/05/18 at 09:30; Status DC Al Hydroxide/Mg Hydroxide (Mylanta Plus Xs) 15 ml PRN AFTMEALHC PRN PO DYSPEPSIA; Start 05/29/18 at 06:00; Status Cancel Magnesium Hydroxide (Milk Of Magnesia) 2,400 mg PRN QHS PRN PO CONSTIPATION; Start 05/29/18 at 06:00; Stop 05/29/18 at 07:16; Status DC Mirtazapine (Remeron) 30 mg QHS PO Last administered on 06/04/18at 19:36; Start 05/29/18 at 21:00; Stop 06/05/18 at 09:30; Status DC Sertraline HCl (Zoloft) 200 mg DAILY PO Last administered on 05/30/18at 08:11; Start 05/29/18 at 09:00; Stop 05/30/18 at 17:07; Status DC Quetiapine Fumarate (SEROquel) 50 mg [id number] PO Last administered on 06/05/18at 08:49; Start 05/29/18 at 09:00; Stop 06/05/18 at 09:30; Status DC Quetiapine Fumarate (SEROquel) 100 mg QHS PO Last administered on 06/04/18at 19 :36; Start 05/29/18 at 21:00; Stop 06/05/18 at 09:30; Status DC Risperidone (RisperDAL) 0.5 mg QHS PO Last administered on 05/29/18at 20:32; Start 05/29/18 at 21:00; Stop 05/30/18 at 16:48; Status DC Acetaminophen (Tylenol) 650 mg PRN Q6HRS PRN PO PAIN; Start 05/29/18 at 07:15 ; Status Cancel Cyanocobalamin (Vitamin B-12) 1,000 mcg DAILY PO Last administered on at 08:50; Start 05/29/18 at 09:00; Stop 06/05/18 at 09:30; Status DC Ferrous Sulfate (Feosol) 325 mg BID PO Last administered on 06/05/18at 08:51; Start 05/29/18 at 09:00; Stop 06/05/18 at 09:30; Status DC Furosemide (Lasix) 20 mg BID PO Last administered on 06/04/18at 19:33; Start 05/29/18 at 09:00; Stop 06/05/18 at 07:33; Status DC Guaifenesin (Mucinex Er) 600 mg PRN BID PRN PO COUGH; Start 05/29/18 at 07:15 ; Stop 06/05/18 at 09:30; Status DC Albuterol/ Ipratropium (Duoneb) 3 ml PRN Q4HRS PRN NEB SHORTNESS OF BREATH; Start 05/29/18 at 07:15; Stop 06/05/18 at 09:30; Status DC Magnesium Hydroxide (Milk Of Magnesia) 800 mg PRN Q6HRS PRN PO CONSTIPATION Last administered on 06/03/18at 17:36; Start 05/29/18 at 07:15; Stop 06/05/18 at 09:30; Status DC Nitroglycerin (Nitrostat) 0.4 mg PRN Q5MIN PRN SL CHEST PAIN; Start 05/29/18 at 07:15; Stop 06/05/18 at 09:30; Status DC Prednisone (Prednisone) 10 mg DAILY PO Last administered on 06/05/18at 08:49; Start 05/29/18 at 09:00; Stop 06/05/18 at 09:30; Status DC Non-Formulary Medication (Albuterol Sulfate (Albuterol Sulfate Conc Neb Soln)) 1.25 mg PRN Q6HRS PRN NEB SHORTNESS OF BREATH; Start 05/29/18 at 07:15; Status UNV Amlodipine Besylate (Norvasc) 2.5 mg DAILY PO Last administered on 06/04/18at 08:36; Start 05/29/18 at 09:00; Stop 06/05/18 at 09:30; Status DC Aspirin (Aspirin Enteric Coated) 81 mg [id number] PO Last administered on 06/05at 08:49; Start 05/29/18 at 08:00; Stop 06/05/18 at 09:30; Status DC Atorvastatin Calcium (Lipitor) 40 mg QHS PO Last administered on 06/04/18at 19: 33; Start 05/29/18 at 21:00; Stop 06/05/18 at 09:30; Status DC Benzonatate (Tessalon Perle) 200 mg PRN TID PRN PO COUGH; Start 05/29/18 at 07 :15; Stop 06/05/18 at 09:30; Status DC Carvedilol (Coreg) 12.5 mg BIDWMEALS PO Last administered on 06/04/18at 16:47; Start 05/29/18 at 08:00; Stop 06/05/18 at 09:30; Status DC Dicyclomine HCl (Bentyl) 20 mg DAILY PO Last administered on 06/05/18at 08:49; Start 05/29/18 at 09:00; Stop 06/05/18 at 09:30; Status DC Docusate Sodium (Colace) 100 mg BID PO Last administered on 06/05/18at 08:48; Start 05/29/18 at 09:00; Stop 06/05/18 at 09:30; Status DC Acetaminophen/ Hydrocodone Bitart (Lortab 10/325) 1 tab BID PO Last administered on 06/05/18at 08:53; Start 05/29/18 at 09:00; Stop 06/05/18 at 09 :30; Status DC Acetaminophen/ Hydrocodone Bitart (Lortab 5/325) 1 tab PRN BID PRN PO PAIN Last administered on 06/04/18at 12:05; Start 05/29/18 at 07:30; Stop 06/05/18 at 09:30; Status DC Isosorbide Mononitrate (Imdur) 60 mg DAILY PO Last administered on 06/04/18at 08:40; Start 05/29/18 at 09:00; Stop 06/05/18 at 09:30; Status DC Levetiracetam (Keppra) 500 mg BID PO Last administered on 06/05/18at 08:48; Start 05/29/18 at 09:00; Stop 06/05/18 at 09:30; Status DC Lisinopril (Prinivil) 40 mg DAILY PO Last administered on 06/04/18at 08:37; Start 05/29/18 at 09:00; Stop 06/05/18 at 07:33; Status DC Al Hydroxide/Mg Hydroxide (Mylanta Plus Xs) 30 ml PRN Q2HR PRN PO INDIGESTION; Start 05/29/18 at 07:15; Stop 06/05/18 at 09:30; Status DC Pantoprazole Sodium (Protonix) 40 mg DAILYAC PO Last administered on at 08:51; Start 05/29/18 at 07:30; Stop 06/05/18 at 09:30; Status DC Potassium Chloride (Klor-Con) 20 meq BIDWMEALS PO Last administered on at 16:47; Start 05/29/18 at 08:00; Stop 06/05/18 at 07:33; Status DC Oxybutynin Chloride (Ditropan) 5 mg [id number] PO Last administered on 06/05/18at 08:49; Start 05/29/18 at 09:00; Stop 06/05/18 at 09:30; Status DC Albuterol Sulfate (Ventolin) 1.25 mg PRN Q6HRS PRN NEB SHORTNESS OF BREATH; Start 05/29/18 at 07:45; Stop 06/05/18 at 09:30; Status DC Vitamin D (Vitamin D3) 50,000 unit WEEKLY PO Last administered on 05/30/18at 08 :16; Start 05/30/18 at 09:00; Stop 06/05/18 at 09:30; Status DC Trimethoprim/ Sulfamethoxazole (Bactrim Ds) 1 tab BID PO Last administered on 06/04/18at 19:30; Start 05/30/18 at 21:00; Stop 06/05/18 at 07:33; Status DC Lactobacillus Rhamnosus (Culturelle) 1 cap BID PO Last administered on at 08:48; Start 05/30/18 at 21:00; Stop 06/05/18 at 09:30; Status DC Risperidone (RisperDAL) 0.25 mg QHS PO Last administered on 06/01/18at 20:17; Start 05/30/18 at 21:00; Stop 06/02/18 at 16:36; Status DC Sertraline HCl (Zoloft) 100 mg DAILY PO Last administered on 06/05/18at 08:49; Start 05/31/18 at 09:00; Stop 06/05/18 at 09:30; Status DC Bupropion HCl (Wellbutrin Xl) 150 mg DAILY PO Last administered on 06/05/18at 08:50; Start 05/31/18 at 09:00; Stop 06/05/18 at 09:30; Status DC Influenza Virus Vaccine (Afluria Trivalent [id number] Syringe) 0.5 ml ONCE ONCE VAX IM ; Start 06/03/18 at 09:00; Stop 06/03/18 at 09:00; Status DC Influenza Virus Vaccine (Afluria Trivalent Syringe) 0.5 ml ONCE ONCE VAX IM ; Start 06/03/18 at 09:00; Stop 06/03/18 at 09:01; Status DC Influenza Virus Vaccine (Afluria Trivalent Syringe) 0.5 ml ONCE ONCE VAX IM Last administered on 06/04/18at 14:17; Start 06/04/18 at 09:00; Stop 06/04/18 at 09:01; Status DC Magnesium Citrate (Citroma) 296 ml 1X ONCE PO Last administered on 06/03/18at 19:21; Start 06/03/18 at 19:15; Stop 06/03/18 at 19:18; Status DC Ceftriaxone Sodium 1 gm/ Sodium Chloride 50 ml @ 100 mls/hr Q24H IV ; Start at 16:15; Stop 06/05/18 at 16:15; Status DC Active Scripts Active Reported Wellbutrin Xl (Bupropion Hcl) 150 Mg Tab.er.24h 1 Tab PO DAILY Culturelle (Lactobacillus Rhamnosus Gg) 1 Each Cap.sprink 1 Each PO BID D3-50 (Cholecalciferol (Vitamin D3)) 50,000 Unit Capsule 1 Cap PO WEEKLY Albuterol Sulfate Conc Neb Soln (Albuterol Sulfate) 2.5 Mg/0.5 Ml Vial.neb 1.25 Mg NEB PRN Q6HRS PRN [place] 5-325 Tablet (Hydrocodone Bit/Acetaminophen) 1 Each Tablet 1 Tab PO PRN BID PRN Duoneb 0.5-3(2.5) Mg/3 Ml (Albuterol/Ipratropium) 3 Ml Ampul.neb 3 Ml NEB PRN Q4HRS PRN Tessalon Perle (Benzonatate) 100 Mg Capsule 200 Mg PO PRN TID PRN Mucinex (Guaifenesin) 600 Mg Tablet.er 600 Mg PO PRN BID PRN Antacid Liquid (Mag Hydrox/Al Hydrox/Simeth) 355 Ml Oral.susp 30 Ml PO PRN Q2HR PRN Milk Of Magnesia (Magnesium Hydroxide) 400 Mg/5 Ml Oral.susp 10 Ml PO PRN Q6HRS PRN Tylenol (Acetaminophen) 325 Mg Tablet 1-2 Tab PO PRN Q6HRS PRN NITROGLYCERIN SubLingual (Nitroglycerin) 0.4 Mg Tab.subl 0.4 Mg SL PRN Q5MIN PRN do not exceed 3 tabs per episode Prednisone 10 Mg Tablet 10 Mg PO DAILY Seroquel (Quetiapine Fumarate) 100 Mg Tablet 100 Mg PO QHS Isosorbide Mononitrate Er (Isosorbide Mononitrate) 60 Mg Tab.er.24h 60 Mg PO DAILY Norvasc (Amlodipine Besylate) 2.5 Mg Tablet 2.5 Mg PO DAILY Seroquel (Quetiapine Fumarate) 50 Mg Tablet 50 Mg PO 0900,1400 Prilosec Otc (Omeprazole Magnesium) 20 Mg Tablet. 20 Mg PO DAILY [place] 10-325 Tablet (Hydrocodone Bit/Acetaminophen) 1 Each Tablet 1 Tab PO BID Levetiracetam 500 Mg Tablet 500 Mg PO BID Colace (Docusate Sodium) 100 Mg Capsule 100 Mg PO BID Remeron (Mirtazapine) 30 Mg Tablet 30 Mg PO QHS Carvedilol 12.5 Mg Tablet 12.5 Mg PO BID Vitamin B-12 (Cyanocobalamin (Vitamin B-12)) 1,000 Mcg Tablet 1,000 Mcg PO DAILY Ferrous Sulfate 325 Mg Tablet 325 Mg PO BID Atorvastatin Calcium 40 Mg Tablet 40 Mg PO QHS Detrol La (Tolterodine Tartrate) 2 Mg Cap.er.24h 2 Mg PO BID Zoloft (Sertraline Hcl) 100 Mg Tablet 100 Mg PO DAILY Aspir-Low (Aspirin) 81 Mg Tablet. 81 Mg PO DAILY Dicyclomine Hcl 20 Mg Tablet 20 Mg PO DAILY I have reviewed the current psychotropics carefully including drug interactions. Risk benefit ratio favors no change other than as noted in my dictated progress note. Diagnosis: Problems: (1) Major depressive disorder, recurrent episode (2) Dementia, vascular, with depression (3) Dementia, vascular, with delusions (4) Anxiety disorder JUAN MILLER MD Jun 05, 2018 18:10
--- NOTE | 2018-06-05 21:33 | DS ---
DATE OF DISCHARGE: 06/05/2018 DISCHARGE SUMMARY/PSYCHIATRIC PROGRESS NOTE This note covers elements not covered in my initial note. REASON FOR ADMISSION: Please refer to the admission history for details. Briefly, the patient is an 82-year-old female referred to us from [facility] Emergency Room where she presented from the [facility] after she attempted to stab herself in the neck with a fork in a suicide attempt. She had been increasingly depressed since being in the rehab facility there. She believed her was trying to kill her. She is paranoid, felt he had given up on her; admitted to feeling hopeless, helpless, worthless with a suicidal attempt prompting this admission. SIGNIFICANT FINDINGS AND CLINICAL COURSE: Following admission, the patient was seen daily individually by myself from a psychiatric standpoint, medical followup with Dr. Rouse/Dr. Marsh. She remained quite withdrawn, depressed. Denied active suicidal ideation after adjusting to the hospital and being able to process her misinterpretation of her 's response to her worsening medical needs. Adjustments were made in her psychotropics. Zoloft was reduced from 200 mg a day down to 100 mg a day and this was augmented with Wellbutrin-XL 150 mg a day. She was on Remeron 30 mg at bedtime, Seroquel 50 b.i.d. and 100 mg at bedtime to augment the antidepressants. Gradually mood appeared to improve. She is less anxious, more verbal forthcoming. Denied suicidal ideation. However, at this stage, while she was almost ready to be discharged back to the [facility]. Her labs were completed and she was found to be in renal failure with raised BUN and creatinine amongst other things. She was transferred to [facility] Medical/Surgical floor per Dr. Rouse for medical stabilization. CONDITION AT DISCHARGE: Improved from a psychiatric standpoint, but medically, she was somewhat compromised. FINAL DIAGNOSES: Major depressive disorder, recurrent, in partial remission; anxiety disorder, unspecified; cognitive disorder, unspecified. Rest as above. DISCHARGE MEDICATIONS: Please refer to the MRAD. Once she is medically stable, she may return back to the nursing facility. Time for discharge day management greater than 30 minutes. JUAN MILLER MD DR: DELILAH/nathan JOB#: [id number] / [id number]
--- NOTE | 2018-06-05 23:08 | PN ---
DATE: 06/04/2018 PSYCHIATRIC PROGRESS NOTE This late entry 06/04/2018 covers elements not covered in my initial note. SUBJECTIVE: I met with the patient in the evening. The patient slept 5-1/2 hours previous night. She continues to complain some left-sided abdominal pain and referred to Dr. Rouse. She received back side tray for possible constipation. REVIEW OF SYSTEMS: Ambulation impaired, in wheelchair. No CV, , pulmonary, eye system symptoms on review other than above. MENTAL STATUS EXAM: Reasonably oriented. Speech has some latency, coherent. Abstraction fair. Computation, able to do one step on serial 7's, remembers 2/3 objects at 5 minutes. Mood is overall improved. No suicidal ideation and I questioned her closely on this. No clear psychotic symptoms. Intellect average. Insight improved. Judgment intact to standard questioning. IMPRESSION: Major depressive disorder, recurrent; anxiety disorder, unspecified. Rest as above. PLAN: No change from initial note with respect to the psychotropics. Defer medical management to Dr. Rouse. MAN Mamadou MILLER MD DR: DELILAH/nathan JOB#: [id number] / [id number]
[2018-06-07] MEDS ORDERED: CEFU500T46 PO (13:29)
== END 2018-06-05 09:30 | disposition short-term general hospital (02) | DRG 57 ==
LOC: GEROPSY 05:54
PROVIDERS: ADMIT Psychiatry & Neurology Psychiatry; ATTEND Psychiatry & Neurology Psychiatry
DX: G30.9 Alzheimer's disease, unspecified (principal); F33.2 Major depressive disorder, recurrent severe without psychotic features; I69.354 Hemiplegia and hemiparesis following cerebral infarction affecting left non-dominant side; F33.41 Major depressive disorder, recurrent, in partial remission; F09 Unspecified mental disorder due to known physiological condition; F02.80 Dementia in other diseases classified elsewhere, unspecified severity, without behavioral disturbance, psychotic disturbance, mood disturbance, and anxiety; F41.9 Anxiety disorder, unspecified; F01.50 Vascular dementia, unspecified severity, without behavioral disturbance, psychotic disturbance, mood disturbance, and anxiety; I10 Essential (primary) hypertension; J44.9 Chronic obstructive pulmonary disease, unspecified; N19 Unspecified kidney failure; Z66 Do not resuscitate; Z88.8 Allergy status to other drugs, medicaments and biological substances; Z91.048 Other nonmedicinal substance allergy status; Z79.899 Other long term (current) drug therapy; Z23 Encounter for immunization
CPT/HCPCS: 36415; 71101; 73521; 74018; 74176; 80048; 80053; 80061; 81001; 82306; 82607; 82728; 83036; 83540; 83550; 83735; 84436; 84443; 84480; 85025; 86592; 87086; 87186; 90471; 90756; J7512; Q2035

== ENCOUNTER 2018-06-05 09:26 | Inpatient (IN) | payer BC ==
[~2018-06-05] VITALS: Ht 154.9 cm; Wt 66.7 kg
[~2018-06-05 09:26] MED LIST: ACET325T9 PO; ALBU2.5V14 NEB; AMLO2.5T2 PO; ASPI81TA50 PO; ATOR40TA59 PO; BENZ100C PO; BUPR150T15 PO; CARV12.52 PO; CHOL500021 PO; CYAN10005 PO; DICY20TA3 PO; DOCU-109 PO; FERR325T14 PO; FURO-69 PO; GUAI600T47 PO; HYDR-963 PO; HYDR-971 PO; IPRA3AMP29 NEB; ISOS60TA2 PO; LACT1CAP19 PO; LEVE500T6 PO; LISI40TA PO; MAG355OR22 PO; MAGN400O7 PO; MIRT30TA PO; NITR0.4T22 SL; OMEP20TA63 PO; POTA20TA82 PO; PRED-220 PO; QUET100T4 PO; QUET50TA5 PO; RISP0.5T24 PO; SERT100T PO; TOLT2CAP PO
[2018-06-05 10:09] VITALS: BP 114/63
[2018-06-05] MEDS ORDERED: INSULIN REGULAR 100 UNIT/ML 3ML VIAL. IV ONE (10:30)
[2018-06-05] MEDS ORDERED: CALCIUM GLUCONATE 1,000 MG/10 ML VIAL IV ONE (10:30)
[2018-06-05] MEDS ORDERED: SODIUM BICARB ADULT 8.4% 50 MEQ/50 ML DISP.SYRIN. IV ONE (10:30)
[2018-06-05] MEDS ORDERED: DEXTROSE 50% 25 GM / 50ML DISP.SYRIN. IV ONE (10:30)
[2018-06-05] MEDS ORDERED: CALCIUM GLUCONATE 1,000 MG in IV NORMAL SALINE 100ML 100 ML IV ONE (10:45)
[2018-06-05] MEDS ORDERED: SODIUM POLYSTYRENE SULFONATE 15 GM/60 ML ORAL.SUSP. PO ONE (10:45)
[2018-06-05] MEDS ORDERED: IV NORMAL SALINE 1,000ML 1,000 ML IV ONE (11:00)
[2018-06-05] MEDS ORDERED: MAGNESIUM HYDROXIDE 2,400 MG/30 ML ORAL.SUSP. PO PRN (13:00)
[2018-06-05] MEDS ORDERED: ALBUTEROL SULFATE 1.25 MG NEB PRN (13:00)
[2018-06-05] MEDS ORDERED: NITROGLYCERIN SUBLINGUAL 0.4 MG BOTTLE OF 25. SL PRN (13:00)
[2018-06-05] MEDS ORDERED: IPRATRPIUM/ALBUTEROL 0.5/2.5MG 3 ML NEBU. NEB PRN (13:00)
[2018-06-05] MEDS ORDERED: ACETAMINOPHEN 325 MG TABLET PO PRN (13:00)
[2018-06-05] MEDS: IV NORMAL SALINE 1,000ML 1,000 ML IV SCH ×2 (13:26→21:09)
[2018-06-05] MEDS ORDERED: MAG HYDROX/AL HYDROX/SIMETH 30 ML ORAL.SUSP PO PRN (13:45)
[2018-06-05] MEDS ORDERED: ALBUTEROL SULFATE 2.5 MG/3 ML NEBU. NEB PRN (13:45)
[2018-06-05] MEDS ORDERED: HYDROcodone/APAP 5/325MG 1 TAB TABLET PO PRN (13:45)
[2018-06-05] MEDS ORDERED: BENZONATATE 100 MG CAPSULE. PO PRN (14:00)
[2018-06-05] MEDS: QUEtiapine 50 MG TABLET. PO SCH (15:00)
[2018-06-05] MEDS: OXYBUTYNIN CHLORIDE 5 MG TABLET PO SCH ×2 (15:00→21:10)
[2018-06-05 15:13] VITALS: BP 111/58
[2018-06-05] MEDS: CARVEDILOL 12.5 MG TABLET PO SCH (17:39)
[2018-06-05 19:37] VITALS: BP 128/84
[2018-06-05] MEDS: HYDROcodone/APAP 10/325 1 TAB TABLET PO SCH (21:00)
[2018-06-05] MEDS ORDERED: LACTOBACILLUS RHAMNOSUS GG 1 CAPSULE. PO SCH (21:00)
[2018-06-05] MEDS: DOCUSATE SODIUM 100 MG CAPSULE PO SCH (21:09)
[2018-06-05] MEDS: MIRTAZAPINE 30 MG TABLET PO SCH (21:09)
[2018-06-05] MEDS: QUEtiapine 100 MG TABLET. PO SCH (21:10)
[2018-06-05] MEDS: LACTOBACILLUS RHAMNOSUS GG 1 CAPSULE. PO SCH (21:10)
[2018-06-05] MEDS: levETIRAcetam 500 MG TABLET PO SCH (21:10)
[2018-06-05] MEDS: ATORVASTATIN CALCIUM 20 MG TABLET PO SCH (21:10)
[2018-06-05] MEDS: FERROUS SULFATE 325 MG TABLET. PO SCH (21:10)
[2018-06-05 22:44] VITALS: BP 113/73
--- NOTE | 2018-06-06 02:23 | HP ---
ADMIT DATE: 06/05/2018 HISTORY OF PRESENT ILLNESS: The patient is an 82-year-old female patient, who has had lab work done today at [facility], and it showed that she has acute kidney injury as well as marked hyperkalemia. She apparently was getting potassium as well as furosemide as well as lisinopril and was started recently on Bactrim-DS started on 05/30/2018. Apparently, she grew Klebsiella pneumoniae from her urine culture with growth of more than 100,000 colony forming units per milliliter and was started on trimethoprim and sulfamethoxazole, and her baseline BUN and creatinine were 19 and 0.9. Her potassium was 3.9 on 05/29/2018. 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 She has also calcification seen in the right upper quadrant at expected location of ampulla of Vater, to correlate for biliary obstruction as this may represent choledocholithiasis. She has evidence of right hemicolectomy changes with no evidence of obstruction at the ileocolic anastomosis. Her liver appeared to be small suggesting cirrhosis. There are low density liver lesions, not adequately characterized, elective nonemergent evaluation could be made with multiphase CT scan versus ultrasound. Given acute kidney injury and hyperkalemia, the patient was transferred to [address] [place] [address] and was treated with 1 amp of sodium bicarbonate, 10 mL of 10% dextrose and 50 mL of 50% dextrose with 10 units of NovoLog insulin as well as breathing treatment together with Kayexalate 30 grams and 30 mL lactulose. We will switch her also, start her on ceftriaxone as her Klebsiella pneumoniae is sensitive to cephalosporins. Transpired that she has a Port-A-Cath, most likely used for treatment of her colon cancer before, the patient herself is demented and does not give any useful information. 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 She has depression, dementia, colon cancer. She also is known to have COPD and hypertension. PAST SURGICAL HISTORY: Significant for left hemicolectomy and Port-A-Cath placement. ALLERGIES: SHE IS ALLERGIC TO PHENERGAN AND ADHESIVE TAPE. MEDICATIONS: She was on following medications: Dicyclomine 20 mg daily, DuoNeb 0.5/2.5 mg 3 mL by nebulizer every 4 hours, albuterol sulfate every 2 hours, ferrous sulfate 325 mg twice a day, atorvastatin calcium 40 mg at bedtime, isosorbide mononitrate 60 mg daily, nitroglycerin 0.4 mg sublingually every 5 minutes x 3, carvedilol 12.5 mg twice a day, amlodipine besylate 2.5 mg daily, aspirin 81 mg once a day, hydrocodone/APAP 10/325 one tablet twice a day, acetaminophen 650 mg every 6 hours, Levetiracetam 500 mg p.o. b.i.d., Wellbutrin-XL 150 mg once a day, mirtazapine 30 mg at bedtime, sertraline 100 mg daily. She is on quetiapine fumarate 50 mg p.o. at 9:00 and 2:00 in no afternoon. She is on quetiapine fumarate 100 mg at bedtime, benzonatate 200 mg 3 times a day, guaifenesin for Mucinex 600 mg twice a day and Mylanta 30 mL every 2 hours as needed for indigestion, Colace 100 mg twice a day; magnesium hydroxide 400 mg per 5 mL, take 10 mL every 6 hours; omeprazole 20 mg once a day, lactobacillus rhamnosus for Culturelle 1 twice a day, prednisone 10 mg once a day, Detrol-LA 2 mg twice a day, cyanocobalamin 1000 mcg p.o. daily. Vitamin D3 is 50,000 units once a week. FAMILY HISTORY: Unremarkable. SOCIAL HISTORY: She apparently is a resident at ____ [facility]. She was admitted originally to [facility] as she attempted suicide with stabbing herself in the neck with a fork and received a significant gush wound. She has been depressed, believed her is lying to kill her since he is unable to have her home because she relates he states he cannot take care of her, status post cerebrovascular accident. She has been at that facility for almost 15 months. LABORATORY DATA: She has had lab work done at [facility] this morning and showed a white cell count 5700, hemoglobin 11.4, hematocrit 34.9, MCV 88 and platelet count of 128,000. Her chemistry showed a serum sodium of 138, potassium 6.3, chloride 104, bicarbonate 25, anion gap of 9, BUN 54, creatinine 3.2, estimated GFR was 14 mL per minute. Her glucose was 83, calcium was 8.7. Her serum ferritin was 324. Total bilirubin, AST, ALT, alkaline phosphatase were normal. Total protein 6.5, albumin was 3.3. PLAN: The patient was given a liter of IV fluid bolus and continued at 125. We discontinued her Bactrim, Lasix, and potassium as well as lisinopril. We will continue with IV fluid at 125 mL per hour. She was given 10 mL of 10% calcium gluconate and 50 mL of 50% dextrose with 10 units of NovoLog insulin, an amp of sodium bicarbonate, the breathing treatment as well as Kayexalate 30 grams and 30 mL of lactulose. We will monitor her lab works and urine output closely and decide the further management accordingly to complete treatment for her Klebsiella pneumoniae urinary tract infection. I will start her on ceftriaxone to complete the course of treatment. YANG RANDALL MD DR: DEJA/nathan JOB#: [id number] / [id number]
[2018-06-06 05:01] VITALS: BP 118/75
[2018-06-06] MEDS: IV NORMAL SALINE 1,000ML 1,000 ML IV SCH ×3 (05:08→20:00)
[2018-06-06 06:47] LABS: CALCIUM 7.8 mg/dL (8.5-10.1); CREATININE 1.2 mg/dL (0.6-1.0); GFR 43.1; POTASSIUM 4.2 mmol/L (3.5-5.1)
[2018-06-06] MEDS: PANTOPRAZOLE 40 MG TABLET. PO SCH (07:50)
[2018-06-06] MEDS: CARVEDILOL 12.5 MG TABLET PO SCH ×2 (08:30→17:11)
[2018-06-06] MEDS: DICYCLOMINE HCL 20 MG TABLET PO SCH (08:30)
[2018-06-06] MEDS: DOCUSATE SODIUM 100 MG CAPSULE PO SCH ×2 (08:30→19:50)
[2018-06-06] MEDS: buPROPion XL 150 MG TAB.ER.24H PO SCH (08:30)
[2018-06-06] MEDS: ASPIRIN 81 MG TAB.CHEW PO SCH (08:30)
[2018-06-06] MEDS: OXYBUTYNIN CHLORIDE 5 MG TABLET PO SCH ×3 (08:31→19:50)
[2018-06-06] MEDS: QUEtiapine 50 MG TABLET. PO SCH ×2 (08:31→13:55)
[2018-06-06] MEDS: amLODIPine BESYLATE 2.5 MG TABLET PO SCH (08:31)
[2018-06-06] MEDS: SERTRALINE 100 MG TABLET. PO SCH (08:31)
[2018-06-06] MEDS: ISOSORBIDE MONONITRATE ER 30 MG TAB.ER.24H PO SCH (09:12)
[2018-06-06] MEDS: CYANOCOBALAMIN (VITAMIN B-12) 1,000 MCG TABLET. PO SCH (09:12)
[2018-06-06] MEDS: LACTOBACILLUS RHAMNOSUS GG 1 CAPSULE. PO SCH ×2 (09:12→19:50)
[2018-06-06] MEDS: levETIRAcetam 500 MG TABLET PO SCH ×2 (09:12→19:52)
[2018-06-06] MEDS: FERROUS SULFATE 325 MG TABLET. PO SCH ×2 (09:12→19:51)
[2018-06-06] MEDS: predniSONE 10 MG TABLET PO SCH (09:12)
[2018-06-06] MEDS: HYDROcodone/APAP 10/325 1 TAB TABLET PO SCH ×2 (09:17→19:51)
[2018-06-06 10:39] VITALS: BP 112/73
[2018-06-06 14:36] VITALS: BP 130/74
[2018-06-06 19:00] VITALS: BP 111/67
[2018-06-06] MEDS: QUEtiapine 100 MG TABLET. PO SCH (19:50)
[2018-06-06] MEDS: ATORVASTATIN CALCIUM 20 MG TABLET PO SCH (19:50)
[2018-06-06] MEDS: MIRTAZAPINE 30 MG TABLET PO SCH (19:51)
[2018-06-06 22:43] VITALS: BP 103/66
--- NOTE | 2018-06-07 01:57 | PN ---
DATE: 06/06/2018 SUBJECTIVE: The patient is resting slightly propped up in bed, in no apparent distress, awake and alert. On questioning her, denied any complaint. Nursing staff did not voice any concern, stated she had an uneventful night. PHYSICAL EXAMINATION: GENERAL: When I examined her, she looked somewhat pale, but no jaundice, cyanosis, or thyromegaly. No jugular venous distention. No limb edema. VITAL SIGNS: Her heart rate was 63, blood pressure was 112/73, temperature was 98.9, respiratory rate 20, and her oxygen saturation was 93% on room air. HEAD, EYES, EARS, NOSE, AND THROAT: Showed normocephalic, atraumatic. NECK: Supple. HEART: Showed normal first and second sounds. No gallop, rub, or murmur. CHEST: Clear to auscultation. No crepitation or rhonchi. ABDOMEN: Distended, soft, nontender. NEUROLOGIC: She is awake, alert, responding appropriately. All her cranial nerves are intact. She has left-sided hemiplegia. Her intake over the last 24 hours was 3800, output was 1600. LABORATORY DATA: Her lab work this morning showed a serum sodium of 141, potassium 4.2, chloride 109, bicarbonate 25, anion gap of 7, BUN of 27, creatinine 1.2, estimated GFR was 43 mL per minute. Her glucose was 73. Calcium was 7.8. ASSESSMENT: 1. Acute kidney injury. 2. Hyperkalemia, resolved. 3. Urinary tract infection with growth of Klebsiella pneumoniae sensitive to ceftriaxone. PLAN: My plan is to continue with IV fluid, continue with IV antibiotics. Tomorrow, we will evaluate whether she qualifies to go back upstairs. Otherwise, she can be discharged back to her alf facility. YANG RANDALL MD DR: DEJA/nathan JOB#: [id number] / [id number]
[2018-06-07] MEDS: IV NORMAL SALINE 1,000ML 1,000 ML IV SCH (03:28)
[2018-06-07 05:23] VITALS: BP 159/77
[2018-06-07 06:06] LABS: GFR 53.2; POTASSIUM 4.1 mmol/L (3.5-5.1)
[2018-06-07 06:22] LABS: HEMATOCRIT 30.1 % (36.0-47.0); RED BLOOD COUNT 3.42 x10^6/uL (3.50-5.40); RED CELL DISTRIBUTION WIDTH 15.6 % (11.5-14.5); WHITE BLOOD COUNT 4.1 x10^3/uL (4.0-11.0)
[2018-06-07] MEDS: levETIRAcetam 500 MG TABLET PO SCH (08:14)
[2018-06-07] MEDS: CYANOCOBALAMIN (VITAMIN B-12) 1,000 MCG TABLET. PO SCH (08:14)
[2018-06-07] MEDS: QUEtiapine 50 MG TABLET. PO SCH (08:14)
[2018-06-07] MEDS: DOCUSATE SODIUM 100 MG CAPSULE PO SCH (08:14)
[2018-06-07] MEDS: HYDROcodone/APAP 10/325 1 TAB TABLET PO SCH (08:14)
[2018-06-07] MEDS: DICYCLOMINE HCL 20 MG TABLET PO SCH (08:14)
[2018-06-07] MEDS: OXYBUTYNIN CHLORIDE 5 MG TABLET PO SCH (08:14)
[2018-06-07] MEDS: SERTRALINE 100 MG TABLET. PO SCH (08:15)
[2018-06-07] MEDS: predniSONE 10 MG TABLET PO SCH (08:15)
[2018-06-07] MEDS: ISOSORBIDE MONONITRATE ER 30 MG TAB.ER.24H PO SCH (08:15)
[2018-06-07] MEDS: buPROPion XL 150 MG TAB.ER.24H PO SCH (08:15)
[2018-06-07] MEDS: ASPIRIN 81 MG TAB.CHEW PO SCH (08:15)
[2018-06-07] MEDS: LACTOBACILLUS RHAMNOSUS GG 1 CAPSULE. PO SCH (08:15)
[2018-06-07 08:16] VITALS: BP 159/77
[2018-06-07] MEDS: PANTOPRAZOLE 40 MG TABLET. PO SCH (08:16)
[2018-06-07] MEDS: amLODIPine BESYLATE 2.5 MG TABLET PO SCH (08:16)
[2018-06-07] MEDS: FERROUS SULFATE 325 MG TABLET. PO SCH (08:16)
[2018-06-07] MEDS: CARVEDILOL 12.5 MG TABLET PO SCH (08:16)
[2018-06-07] MEDS ORDERED: NYSTATIN TOPICAL POWDER 15GM BOTTLE. TP SCH (09:00)
[2018-06-07] MEDS ORDERED: CEFU500T46 PO (13:29)
--- NOTE | 2018-06-07 16:03 | DS ---
DATE OF DISCHARGE: 06/07/2018 HOSPITAL COURSE: The patient is an 82-year-old female patient who was transferred from [facility] on account of acute kidney injury as well as severe hyperkalemia. She has a urinary tract infection with growth of Klebsiella pneumoniae, treated with Bactrim and unfortunately, her creatinine has dramatically risen as well as hyperkalemia. In fact on arrival, her serum potassium was 6.3, BUN 54, creatinine 3.2. The patient was admitted to [address] [place] [address] and was started on IV fluid as well as Kayexalate, calcium gluconate, and amp of sodium bicarbonate as well as D5 and 50 mL of 50% dextrose with 10 units of NovoLog insulin. Her potassium came down gradually from 6.3 down to 4.1. Her BUN has normalized from 54 to 15. Her creatinine came down from 3.2 to 1. We treated her UTI with IV ceftriaxone. The patient did very well. PHYSICAL EXAMINATION: GENERAL: When I saw her today, she looked well and was clearly in no apparent respiratory distress, slightly pale, but no jaundice, cyanosis, or thyromegaly. No jugular venous distension. No limb edema. VITAL SIGNS: Her heart rate was 62, blood pressure was 159/77, temperature was 98.4, respiratory rate was 18, and oxygen saturation was 92% on room air. HEAD, EYES, EARS, NOSE AND THROAT: Normocephalic, atraumatic. NECK: Supple. HEART: Showed normal first and second heart sounds with no gallop, rub or murmur. CHEST: Clear to auscultation. No crepitation or rhonchi. ABDOMEN: Distended, soft, nontender. NEUROLOGIC: She is awake, alert, responding appropriately. Cranial nerves intact. She has right middle cerebral artery territory infarct, left side hemiplegia. Her intake over the last 24 hours was 2950, output was 1600. LABORATORY DATA: As of this morning showed that her serum sodium 142, potassium 4.1, chloride 111, bicarbonate 22, anion gap of 9, BUN 15, creatinine 1, estimated GFR was 53 mL per minute. Her glucose was 74, calcium was 8. Her white cell count was 4100, hemoglobin 10, hematocrit 30, MCV 88 and platelet count of 109,000. DISCHARGE MEDICATIONS: The patient was discharged to a correction facility to continue on cefuroxime 500 mg twice a day for 7 more days; Tylenol 650 mg every 6 hours; albuterol sulfate by nebulizer every 6 hours; amlodipine besylate 2.5 mg once a day; aspirin 81 mg once a day; atorvastatin 40 mg at bedtime; benzonatate for Tessalon Perles 200 mg 3 times a day; Wellbutrin-XL 150 mg once a day; carvedilol 12.5 mg twice a day; cholecalciferol for vitamin D3 50,000 international units once a week; cyanocobalamin 1000 mcg p.o. daily; dicyclomine 20 mg p.o. daily; Colace 100 mg twice a day; ferrous sulfate 325 mg twice a day; guaifenesin for Mucinex 600 mg twice a day; hydrocodone/APAP 10/325 twice a day; isosorbide mononitrate 60 mg once a day; lactobacillus rhamnosus 1 twice a day; levetiracetam 500 mg twice a day; magnesium hydroxide for milk of magnesia 30 mL p.o. daily p.r.n. for constipation; Remeron 30 mg at bedtime; nitroglycerin 0.4 mg sublingually every 5 minutes x 3; omeprazole 20 mg daily; prednisone 10 mg once a day; quetiapine fumarate 100 mg at bedtime; sertraline 100 mg once a day; and trazodone and tolterodine tartrate for Detrol LA 2 mg twice a day. FINAL DISCHARGE DIAGNOSES: 1. Acute kidney injury, resolved. 2. Hyperkalemia, resolved. 3. Urinary tract infection with growth of Klebsiella pneumoniae, sensitive to ceftriaxone, resolved. 4. Other medical problems include hypertension, cerebrovascular accident with left side hemiplegia, depression, dementia, chronic obstructive pulmonary disease, hypothyroidism, irritable bowel syndrome, overactive bladder. YANG RANDALL MD DR: DEJA/nathan JOB#: [id number] / [id number]
[2018-06-12] MEDS ORDERED: CHOLECALCIFEROL (VITAMIN D3) 50,000 UNIT CAPSULE PO SCH (09:00)
== END 2018-06-07 10:25 | DRG 683 ==
LOC: 1 SOUTH 09:40
PROVIDERS: ADMIT Internal Medicine; ATTEND Internal Medicine
DX: N17.9 Acute kidney failure, unspecified (principal); N39.0 Urinary tract infection, site not specified; I69.354 Hemiplegia and hemiparesis following cerebral infarction affecting left non-dominant side; F32.9 Major depressive disorder, single episode, unspecified; E87.5 Hyperkalemia; E03.9 Hypothyroidism, unspecified; F03.90 Unspecified dementia, unspecified severity, without behavioral disturbance, psychotic disturbance, mood disturbance, and anxiety; B96.1 Klebsiella pneumoniae [K. pneumoniae] as the cause of diseases classified elsewhere; I10 Essential (primary) hypertension; J44.9 Chronic obstructive pulmonary disease, unspecified; K58.9 Irritable bowel syndrome, unspecified; N32.81 Overactive bladder; Z85.038 Personal history of other malignant neoplasm of large intestine; Z79.899 Other long term (current) drug therapy; Z88.8 Allergy status to other drugs, medicaments and biological substances; Z91.048 Other nonmedicinal substance allergy status; Z90.49 Acquired absence of other specified parts of digestive tract
CPT/HCPCS: 36415; 80048; 82947; 85027; 87641; J0610; J0696; J1815; J7512; J7030

== ENCOUNTER 2019-03-06 19:25 | Inpatient (IN) | payer BC ==
[~2019-03-06] VITALS: Ht 154.9 cm; Wt 71.0 kg
[~2019-03-06 19:25] MED LIST changes: -CARV12.52 PO; +CARV12.547 PO; +CEFU500T46 PO; +CYAN-25 PO; -CYAN10005 PO; +HYDR-3136 PO; +HYDR-3165 PO; -HYDR-963 PO; -HYDR-971 PO
[2019-03-07 00:43] VITALS: BP 165/86
[2019-03-07] MEDS ORDERED: MAGNESIUM HYDROXIDE 2,400 MG/30 ML ORAL.SUSP. PO PRN (01:00)
[2019-03-07] MEDS ORDERED: MAG HYDROX/AL HYDROX/SIMETH 30 ML ORAL.SUSP PO PRN (01:00)
[2019-03-07] MEDS ORDERED: SPIR25TA5 PO (01:24)
[2019-03-07] MEDS ORDERED: CITA10TA4 PO (01:24)
[2019-03-07] MEDS ORDERED: CITA20TA6 PO (01:24)
[2019-03-07] MEDS ORDERED: POLY17PO5 PO (01:24)
[2019-03-07] MEDS ORDERED: ALBUTEROL SULFATE 1.25 MG NEB PRN (01:30)
[2019-03-07] MEDS ORDERED: NITROGLYCERIN SUBLINGUAL 0.4 MG BOTTLE OF 25. SL PRN (01:30)
[2019-03-07 01:36] LABS: CLARITY,URINE HAZY; COLOR,URINE YELLOW; GLUCOSE,URINE NEG (NEG)
[2019-03-07 01:37] LABS: BACTERIA,URINE MANY /HPF (0-FEW); BILIRUBIN,URINE NEG (NEG); NITRITE,URINE NEG (NEG); SQUAMOUS EPITHELIAL CELL,UR MANY /LPF; UROBILINOGEN,URINE 0.2 mg/dL (0.2 mg/dL)
[2019-03-07] MEDS ORDERED: ALBUTEROL SULFATE 2.5 MG/3 ML NEBU. NEB PRN (01:45)
[2019-03-07 06:22] VITALS: BP 146/84
[2019-03-07] MEDS: FERROUS SULFATE 325 MG TABLET. PO SCH ×2 (07:41→17:19)
[2019-03-07] MEDS: CARVEDILOL 12.5 MG TABLET PO SCH ×2 (07:41→17:19)
[2019-03-07] MEDS: SPIRONOLACTONE 25 MG TABLET PO SCH (07:52)
[2019-03-07 08:05] LABS: BASO % 0 % (0-3); EOS # 0.1 x10^3/uL (0.0-0.7); EOS % 2 % (0-3); HEMATOCRIT 36.8 % (36.0-47.0); LYMPH # 0.8 x10^3/uL (1.0-4.8); LYMPH % 16 % (24-48); MEAN CORPUSCULAR HEMOGLOBIN 30 pg (25-35); MEAN CORPUSCULAR HGB CONC 33 g/dL (31-37); MEAN CORPUSCULAR VOLUME 93 fL (79-100); MONO # 0.4 x10^3/uL (0.0-1.1); MONO % 8 % (0-9); NEUT # 3.7 x10^3uL (1.8-7.7); NEUT % 74 % (31-73); PLATELET COUNT 126 x10^3/uL (140-400); RED BLOOD COUNT 3.96 x10^6/uL (3.50-5.40); RED CELL DISTRIBUTION WIDTH 14.7 % (11.5-14.5); WHITE BLOOD COUNT 4.9 x10^3/uL (4.0-11.0)
[2019-03-07] MEDS: levETIRAcetam 500 MG TABLET PO SCH ×2 (08:10→20:16)
[2019-03-07] MEDS: LACTOBACILLUS RHAMNOSUS GG 1 CAPSULE. PO SCH ×2 (08:10→20:16)
[2019-03-07] MEDS: POLYETHYLENE GLYCOL 3350 17 GM PACKET. PO SCH (08:10)
[2019-03-07] MEDS: ISOSORBIDE MONONITRATE ER 30 MG TAB.ER.24H PO SCH (08:11)
[2019-03-07] MEDS: DOCUSATE SODIUM 100 MG CAPSULE PO SCH ×2 (08:11→20:16)
[2019-03-07] MEDS: amLODIPine BESYLATE 2.5 MG TABLET PO SCH (08:12)
[2019-03-07] MEDS: CITALOPRAM 20 MG TABLET. PO SCH (08:12)
[2019-03-07] MEDS: QUEtiapine 50 MG TABLET. PO SCH ×2 (08:14→13:23)
[2019-03-07] MEDS: DICYCLOMINE HCL 20 MG TABLET PO SCH (08:14)
[2019-03-07] MEDS: HYDROcodone/APAP 10/325 1 TAB TABLET PO SCH ×2 (08:18→20:19)
[2019-03-07] MEDS ORDERED: CITALOPRAM 10 MG TABLET. PO SCH (09:00)
[2019-03-07 09:07] LABS: ALBUMIN 3.2 g/dL (3.4-5.0); ALBUMIN/GLOBULIN RATIO 0.9 (1.0-1.7); CALCIUM 9.1 mg/dL (8.5-10.1); CREATININE 0.7 mg/dL (0.6-1.0); GFR 80.1; TOTAL PROTEIN 6.9 g/dL (6.4-8.2)
[2019-03-07 09:08] LABS: TOTAL BILIRUBIN 0.3 mg/dL (0.2-1.0)
[2019-03-07 15:50] VITALS: BP 127/71
[2019-03-07] MEDS: QUEtiapine 100 MG TABLET. PO SCH (20:20)
[2019-03-07] MEDS: MIRTAZAPINE 30 MG TABLET PO SCH (20:20)
--- NOTE | 2019-03-07 22:55 | PDOC ---
Exam Note: Alek Note: Please also refer to the separate dictated note~for this date of service dictated separately.~Patient seen individually. Discussed the patient with Nursing staff reviewed the chart.~Reviewed interim history and current functioning. Reviewed vital signs,~Labs/ Radiology~and current medications noted below. Continue current treatment with the changes noted in the dictated addendum note Assessment: Vital Signs/I&O: Vital Signs Date Time Temp Pulse Resp B/P (MAP) Pulse Ox O2 Delivery O2 Flow Rate FiO2 03/07/19 21:35 98 03/07/19 17:19 67 127/71 03/07/19 15:50 98.4 18 03/07/19 09:50 Room Air I & O 03/06/19 03/06/19 03/07/19 15:00 23:00 07:00 Intake Total 0 ml Balance 0 ml Labs: Laboratory Tests Test 03/07/19 00:50 03/07/19 06:25 Urine Collection Type Unknown Urine Color Yellow Urine Clarity Hazy Urine pH 6.5 Urine Specific [place] 1.020 Urine Protein Neg (NEG-TRACE) Urine Glucose (UA) Neg mg/dL (NEG) Urine Ketones (Stick) Neg mg/dL (NEG) Urine Blood Neg (NEG) Urine Nitrite Neg (NEG) Urine Bilirubin Neg (NEG) Urine Urobilinogen Dipstick 0.2 mg/dL (0.2 mg/dL) Urine Leukocyte Esterase Small (NEG) Urine RBC 1-2 /HPF (0-2) Urine WBC 11-20 /HPF (0-4) Urine Squamous Epithelial Cells Many /LPF Urine Bacteria Many /HPF (0-FEW) Urine Mucus Mod /LPF White Blood Count 4.9 x10^3/uL (4.0-11.0) Red Blood Count 3.96 x10^6/uL (3.50-5.40) Hemoglobin 12.0 g/dL (12.0-15.5) Hematocrit 36.8 % (36.0-47.0) Mean Corpuscular Volume 93 fL (79-100) Mean Corpuscular Hemoglobin 30 pg (25-35) Mean Corpuscular Hemoglobin Concent 33 g/dL (31-37) Red Cell Distribution Width 14.7 % (11.5-14.5) H Platelet Count 126 x10^3/uL (140-400) L Neutrophils (%) (Auto) 74 % (31-73) H Lymphocytes (%) (Auto) 16 % (24-48) L Monocytes (%) (Auto) 8 % (0-9) Eosinophils (%) (Auto) 2 % (0-3) Basophils (%) (Auto) 0 % (0-3) Neutrophils # (Auto) 3.7 x10^3uL (1.8-7.7) Lymphocytes # (Auto) 0.8 x10^3/uL (1.0-4.8) L Monocytes # (Auto) 0.4 x10^3/uL (0.0-1.1) Eosinophils # (Auto) 0.1 x10^3/uL (0.0-0.7) Basophils # (Auto) 0.0 x10^3/uL (0.0-0.2) Sodium Level 143 mmol/L (136-145) Potassium Level 4.0 mmol/L (3.5-5.1) Chloride Level 107 mmol/L (98-107) Carbon Dioxide Level 30 mmol/L (21-32) Anion Gap 6 (6-14) Blood Urea Nitrogen 10 mg/dL (7-20) Creatinine 0.7 mg/dL (0.6-1.0) Estimated GFR (Cockcroft-Gault) 80.1 BUN/Creatinine Ratio 14 (6-20) Glucose Level 91 mg/dL (70-99) Calcium Level 9.1 mg/dL (8.5-10.1) Magnesium Level 2.0 mg/dL (1.8-2.4) Iron Level 78 ug/dL (50-170) Total Iron Binding Capacity 226 ug/dL (250-450) L Iron Saturation 35 % (15-34) H Total Bilirubin 0.3 mg/dL (0.2-1.0) Aspartate Amino Transferase (AST) 11 U/L (15-37) L Alanine Aminotransferase (ALT) 8 U/L (14-59) L Alkaline Phosphatase 80 U/L (46-116) Total Protein 6.9 g/dL (6.4-8.2) Albumin 3.2 g/dL (3.4-5.0) L Albumin/Globulin Ratio 0.9 (1.0-1.7) L Triglycerides Level 142 mg/dL (0-150) Cholesterol Level 255 mg/dL (0-200) H LDL Cholesterol, Calculated 170 mg/dL (0-100) H VLDL Cholesterol, Calculated 28 mg/dL (0-40) Non-HDL Cholesterol Calculated 198 mg/dL (0-129) H HDL Cholesterol 57 mg/dL (40-60) Cholesterol/HDL Ratio 4.0 Current Medications: Meds: Current Medications Medications (Trade) Dose Ordered Sig/Lucio Route PRN Reason Start Time Stop Time Status Last Admin Dose Admin Mirtazapine (Remeron) 30 mg QHS PO 03/07/19 21:00 03/07/19 20:20 Quetiapine Fumarate (SEROquel) 50 mg BID92 PO 03/07/19 09:00 03/07/19 13:23 Quetiapine Fumarate (SEROquel) 100 mg QHS PO 03/07/19 21:00 03/07/19 20:20 Carvedilol (Coreg) 12.5 mg BIDWMEALS PO 03/07/19 08:00 03/07/19 17:19 Citalopram Hydrobromide (CeleXA) 30 mg DAILY PO 03/07/19 09:00 03/07/19 08:12 Ferrous Sulfate (Feosol) 325 mg BIDWMEALS PO 03/07/19 08:00 03/07/19 17:19 Lactobacillus Rhamnosus (Culturelle) 1 cap BID PO 03/07/19 09:00 03/07/19 20:16 Amlodipine Besylate (Norvasc) 2.5 mg DAILY PO 03/07/19 09:00 03/07/19 08:12 Dicyclomine HCl (Bentyl) 20 mg DAILY PO 03/07/19 09:00 03/07/19 08:14 Docusate Sodium (Colace) 100 mg BID PO 03/07/19 09:00 03/07/19 20:16 Acetaminophen/ Hydrocodone Bitart (Lortab 10/325) 1 tab BID PO 03/07/19 09:00 03/07/19 20:19 Isosorbide Mononitrate (Imdur) 60 mg DAILY PO 03/07/19 09:00 03/07/19 08:11 Levetiracetam (Keppra) 500 mg BID PO 03/07/19 09:00 7/20/19 20:16 Polyethylene Glycol (miraLAX) 17 gm DAILY PO 03/07/19 09:00 03/07/19 08:10 Spironolactone (Aldactone) 25 mg DAILY PO 03/07/19 09:00 03/07/19 07:52 I have reviewed the current psychotropics carefully including drug interactions. Risk benefit ratio favors no change other than as noted in my dictated progress note. Diagnosis: Problems: (1) Anxiety disorder (2) Dementia, vascular, with delusions (3) Dementia, vascular, with depression (4) Major depressive disorder, recurrent episode JUAN MILLER MD Mar 07, 2019 22:55
[2019-03-08 00:09] LABS: HEMOGLOBIN A1C 5.3 % (4.8-5.6)
--- NOTE | 2019-03-08 00:35 | CONS ---
DATE OF CONSULTATION: 03/07/2019 RENAL CONSULTATION NOTE ATTENDING PHYSICIAN: Dr. Timmy Boland We are asked to see this patient for medical consultation. HISTORY OF PRESENT ILLNESS: This is a pleasant, alert 83-year-old female who was admitted late last night. She has become despondent, depressive with suicidal ideation. Several years ago, she had a stroke resulting in a significant left-sided hemiparesis. 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 In the past, she has tried to kill herself by stabbing her neck with a fork. Today, she appears stable. She is not confused. We had a fairly normal conversation. She was admitted for further treatment of her depression with suicidal ideation. PAST MEDICAL HISTORY: Also significant for major depression, anxiety, old stroke with significant left-sided hemiparesis and history of colon cancer. CURRENT MEDICATIONS: Reviewed. She was taking albuterol, amlodipine, Celexa, dicyclomine, docusate, iron, hydrocodone p.r.n., isosorbide mononitrate, lactobacillus, Keppra, Remeron, nitroglycerin, MiraLax, Seroquel, and Aldactone. SOCIAL HISTORY: She is a nonsmoker, nondrinker. FAMILY HISTORY: Noncontributory. REVIEW OF SYSTEMS: Significant for the hemiparesis. Her speech is fluent. She denied any major pain. All other systems reviewed and determined to be negative. PHYSICAL EXAMINATION: GENERAL: When I saw her, this is a pleasant elderly female. INITIAL VITAL SIGNS: Showed a blood pressure 146/84, pulse is 72 and regular. She was afebrile. HEENT: Head is without trauma. Pupils are reactive. Sclerae nonicteric. Oropharynx clear. NECK: Supple. No bruits. LUNGS: Otherwise clear. CARDIOVASCULAR: Regular, heart tones. No obvious gallops. Peripheral pulses are palpable and full. ABDOMEN: Soft, obese, protuberant. No organomegaly. Bowel sounds are hypoactive. EXTREMITIES: Showed trace edema on the right side. The left leg is in a brace. It is nonfunctioning. The left arm is paralyzed with a claw hand. SKIN: Warm and dry. LABORATORY DATA: Pertinent laboratory studies, hemoglobin 12.0 g/dL with white count of 4900. Chemistry panel showed stable, creatinine, BUN and electrolytes and liver panel. ASSESSMENT: 1. This 83-year-old female has suicidal ideation. 2. Major depression. 3. Old stroke with significant left-sided hemiparesis. Her speech has been spared. 4. History of colon cancer. RECOMMENDATIONS: 1. I reviewed her medications. 2. This patient is medically stable. 3. We should gladly follow along during the course of her hospitalization. ODELL ANDERSON MD DR: AUTUMN/nathan JOB#: [id number] / [id number] YANG Sheffield MD
[2019-03-08 06:04] VITALS: BP 107/70
[2019-03-08] MEDS: SPIRONOLACTONE 25 MG TABLET PO SCH (07:44)
[2019-03-08] MEDS: QUEtiapine 50 MG TABLET. PO SCH ×2 (07:45→14:15)
[2019-03-08] MEDS: CARVEDILOL 12.5 MG TABLET PO SCH ×2 (07:45→17:07)
[2019-03-08] MEDS: DICYCLOMINE HCL 20 MG TABLET PO SCH (07:45)
[2019-03-08] MEDS: amLODIPine BESYLATE 2.5 MG TABLET PO SCH (07:46)
[2019-03-08] MEDS: LACTOBACILLUS RHAMNOSUS GG 1 CAPSULE. PO SCH ×2 (07:46→20:02)
[2019-03-08] MEDS: ISOSORBIDE MONONITRATE ER 30 MG TAB.ER.24H PO SCH (07:46)
[2019-03-08] MEDS: CITALOPRAM 20 MG TABLET. PO SCH (07:46)
[2019-03-08] MEDS: levETIRAcetam 500 MG TABLET PO SCH ×2 (07:51→20:02)
[2019-03-08] MEDS: POLYETHYLENE GLYCOL 3350 17 GM PACKET. PO SCH (07:51)
[2019-03-08] MEDS: DOCUSATE SODIUM 100 MG CAPSULE PO SCH ×2 (07:51→20:02)
[2019-03-08] MEDS: FERROUS SULFATE 325 MG TABLET. PO SCH ×2 (07:51→17:07)
[2019-03-08] MEDS: HYDROcodone/APAP 10/325 1 TAB TABLET PO SCH ×2 (07:54→20:02)
[2019-03-08 07:58] LABS: BACTERIA,URINE 0 /HPF (0-FEW); BILIRUBIN,URINE NEG (NEG); CLARITY,URINE HAZY; COLOR,URINE YELLOW; GLUCOSE,URINE NEG (NEG); NITRITE,URINE NEG (NEG); RBC,URINE 0 /HPF (0-2); SQUAMOUS EPITHELIAL CELL,UR OCC /LPF; UROBILINOGEN,URINE 0.2 mg/dL (0.2 mg/dL); WBC,URINE OCC /HPF (0-4)
--- NOTE | 2019-03-08 10:02 | HP ---
ADMIT DATE: 03/07/2019 PSYCHIATRIC ADMISSION HISTORY/EVALUATION This late entry of 03/07/2019 covers elements not covered in my initial note. I met with the patient on the evening of 03/07/2019, discussed with nursing staff, reviewed the chart. Previously, I had discussed with nursing staff and residency program coordinator, referral from the [facility] where the patient presented from [facility] in [place], [place], after she wrapped call light cord around her neck living a significant david. She was throwing herself out of the wheelchair. Behaviors were deemed dangerous to herself, unmanageable, had failed outpatient psychiatric interventions resulting in this referral. The feels this is "attention" seeking. When questioned, the patient stated she was not suicidal, but would think about ending her life daily. CHIEF COMPLAINT: "They took it wrong." HISTORY OF PRESENT ILLNESS: The patient has a history of major depressive disorder. She has been at our facility in 05/2018 and since then has been at the senior care, which closed and then she was transferred to [facility] about 2 months back. Over the past several weeks, she has been increasingly sad, hopeless, helpless, worthless with sleep and appetite changes. She minimizes the suicide attempt, but was found with the oxygen cord wrapped repeatedly around her neck with a david left on the neck. She was referred by her primary care physician, . No clear history of bipolar disorder. PAST PSYCHIATRIC HISTORY: As above. MEDICAL HISTORY: Positive for status post CVA with left-sided weakness, GERD, hypertension, irritable bowel syndrome, hepatitis C positive, hernia repair, 2001, bladder procedure, colon resection, cataract, hemorrhoidectomy, and colon cancer in 2013. ALLERGIES: FENTANYL AND CHEMO. CODE STATUS: DNR. ACCU-CHEKS: Negative. DIET: Regular. Takes medications whole. Ambulates in wheelchair with assist x 2. UA was done at the ER, but will be repeated on our unit. CURRENT PSYCHOTROPICS: Remeron 30 mg at bedtime, Seroquel 50 mg b.i.d. and 100 mg at bedtime, and Celexa 30 mg a day. FAMILY HISTORY: Noncontributory. SOCIAL HISTORY: No history of alcohol, drug abuse, physical, sexual or elder abuse. She is not known to be a perpetrator. REACTION TO HOSPITALIZATION: The patient reluctantly accepting of it. The minimizes her suicide attempt. ASSETS: Supportive family, stable living at the senior care. MENTAL STATUS EXAMINATION: The patient was seen individually evening of 03/07/2019. She is in a wheelchair. She is oriented to herself and situation. Speech is coherent, has some latency. Abstraction fair, computation impaired, language function intact, attention span short. Short-term memory does have impairment. She is depressed, minimizes all of this, but denies active suicidal ideation. 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 Rest as above including status post cerebrovascular accident. Rule out urinary tract infection. PLAN: Admit to geropsychiatry unit at [facility]. I will see the patient daily individually from a psychiatric standpoint. Medical followup with Dr. Rouse/Dr. Spangler. Continue the patient on her current psychotropics. Consider changing Celexa to Zoloft or Wellbutrin. May augment as needed. We will make further decisions post baseline assessment. JUAN MILLER MD DR: DELILAH/nathan JOB#: [id number] / [id number]
[2019-03-08 16:16] VITALS: BP 120/71
[2019-03-08] MEDS: QUEtiapine 100 MG TABLET. PO SCH (20:02)
[2019-03-08] MEDS: MIRTAZAPINE 30 MG TABLET PO SCH (20:02)
--- NOTE | 2019-03-08 22:08 | PDOC ---
Exam Note: Alek Note: Please also refer to the separate dictated note~for this date of service dictated separately.~Patient seen individually. Discussed the patient with Nursing staff reviewed the chart.~Reviewed interim history and current functioning. Reviewed vital signs,~Labs/ Radiology~and current medications noted below. Continue current treatment with the changes noted in the dictated addendum note Assessment: Vital Signs/I&O: Vital Signs Date Time Temp Pulse Resp B/P (MAP) Pulse Ox O2 Delivery O2 Flow Rate FiO2 03/08/19 20:02 95 03/08/19 17:07 71 120/71 03/08/19 16:16 97.6 16 Room Air I & O 03/07/19 03/07/19 03/08/19 15:00 23:00 07:00 Intake Total 360 ml 480 ml Balance 360 ml 480 ml Labs: Laboratory Tests Test 03/08/19 07:25 Urine Collection Type Unknown Urine Color Yellow Urine Clarity Hazy Urine pH 6.0 Urine Specific [place] 1.015 Urine Protein Neg (NEG-TRACE) Urine Glucose (UA) Neg mg/dL (NEG) Urine Ketones (Stick) Neg mg/dL (NEG) Urine Blood Neg (NEG) Urine Nitrite Neg (NEG) Urine Bilirubin Neg (NEG) Urine Urobilinogen Dipstick 0.2 mg/dL (0.2 mg/dL) Urine Leukocyte Esterase Trace (NEG) Urine RBC 0 /HPF (0-2) Urine WBC Occ /HPF (0-4) Urine Squamous Epithelial Cells Occ /LPF Urine Bacteria 0 /HPF (0-FEW) Current Medications: I have reviewed the current psychotropics carefully including drug interactions. Risk benefit ratio favors no change other than as noted in my dictated progress note. Diagnosis: Problems: (1) Anxiety disorder (2) Dementia, vascular, with delusions (3) Dementia, vascular, with depression (4) Major depressive disorder, recurrent episode (5) Impulse control disorder (6) Mild cognitive impairment JUAN MILLER MD Mar 08, 2019 22:08
[2019-03-09] MEDS: ACETAMINOPHEN 325 MG TABLET PO PRN (02:22)
[2019-03-09 05:44] VITALS: BP 104/97
[2019-03-09] MEDS: CARVEDILOL 12.5 MG TABLET PO SCH ×2 (08:10→16:15)
[2019-03-09] MEDS: FERROUS SULFATE 325 MG TABLET. PO SCH ×2 (08:10→16:16)
[2019-03-09] MEDS: DOCUSATE SODIUM 100 MG CAPSULE PO SCH ×2 (08:11→20:01)
[2019-03-09] MEDS: DICYCLOMINE HCL 20 MG TABLET PO SCH (08:11)
[2019-03-09] MEDS: SPIRONOLACTONE 25 MG TABLET PO SCH (08:11)
[2019-03-09] MEDS: LACTOBACILLUS RHAMNOSUS GG 1 CAPSULE. PO SCH ×2 (08:11→20:01)
[2019-03-09] MEDS: levETIRAcetam 500 MG TABLET PO SCH ×2 (08:12→20:01)
[2019-03-09] MEDS: ISOSORBIDE MONONITRATE ER 30 MG TAB.ER.24H PO SCH (08:12)
[2019-03-09] MEDS: QUEtiapine 50 MG TABLET. PO SCH ×2 (08:13→13:55)
[2019-03-09] MEDS: amLODIPine BESYLATE 2.5 MG TABLET PO SCH (08:13)
[2019-03-09] MEDS: POLYETHYLENE GLYCOL 3350 17 GM PACKET. PO SCH (08:13)
[2019-03-09] MEDS: SERTRALINE 25 MG TABLET. PO SCH (08:21)
[2019-03-09] MEDS: HYDROcodone/APAP 10/325 1 TAB TABLET PO SCH ×2 (08:22→20:03)
[2019-03-09 15:39] VITALS: BP 119/74
[2019-03-09] MEDS: QUEtiapine 100 MG TABLET. PO SCH (20:01)
[2019-03-09] MEDS: MIRTAZAPINE 30 MG TABLET PO SCH (20:02)
--- NOTE | 2019-03-09 21:06 | PDOC ---
Exam Note: Alek Note: Please also refer to the separate dictated note~for this date of service dictated separately.~Patient seen individually. Discussed the patient with Nursing staff reviewed the chart.~Reviewed interim history and current functioning. Reviewed vital signs,~Labs/ Radiology~and current medications noted below. Continue current treatment with the changes noted in the dictated addendum note Assessment: Vital Signs/I&O: Vital Signs Date Time Temp Pulse Resp B/P (MAP) Pulse Ox O2 Delivery O2 Flow Rate FiO2 03/09/19 20:03 18 93 03/09/19 16:15 63 119/74 03/09/19 15:39 97.4 03/09/19 09:30 Room Air I & O 03/08/19 03/08/19 03/09/19 15:00 23:00 07:00 Intake Total 480 ml 480 ml Balance 480 ml 480 ml Current Medications: Meds: Current Medications Medications (Trade) Dose Ordered Sig/Lucio Route PRN Reason Start Time Stop Time Status Last Admin Dose Admin Sertraline HCl (Zoloft) 75 mg DAILY PO 03/09/19 09:00 03/09/19 08:21 I have reviewed the current psychotropics carefully including drug interactions. Risk benefit ratio favors no change other than as noted in my dictated progress note. Diagnosis: Problems: (1) Impulse control disorder (2) Mild cognitive impairment (3) Anxiety disorder (4) Dementia, vascular, with delusions (5) Dementia, vascular, with depression (6) Major depressive disorder, recurrent episode JUAN MILLER MD Mar 09, 2019 21:06
[2019-03-10] MEDS: ACETAMINOPHEN 325 MG TABLET PO PRN (01:36)
--- NOTE | 2019-03-10 03:05 | PN ---
DATE: 03/08/2019 This is a late entry. Date of service 03/08/2019 covers elements not covered in my initial note. SUBJECTIVE: I met with the patient at some length in the evening of 03/08/2019. The patient slept 6-1/2 hours previous night. She has been pleasant at night. Denies suicidal ideation, compliant with medications. She does have short-term memory deficits. REVIEW OF SYSTEMS: Ambulation impaired, in wheelchair. No CV, , pulmonary, eye, ENT system symptoms on review. MENTAL STATUS EXAM: Oriented to herself and situation. Speech is coherent, abstraction fair, computation impaired, language function intact, attention span short. Mood and affect still somewhat depressed, withdrawn, though she minimizes this. LABORATORY DATA: Reviewed. IMPRESSION: Unchanged from initial note. PLAN: Change Celexa 30 mg a day to Zoloft 75 mg a day. Maintain Remeron 30 mg at bedtime, Seroquel 50 mg b.i.d. and 100 mg at bedtime. Adjust further as clinically indicated. MAN Mamadou MILLER MD DR: DELILAH/nathan JOB#: [id number] / [id number]
[2019-03-10 05:25] VITALS: BP 118/76
[2019-03-10] MEDS: CARVEDILOL 12.5 MG TABLET PO SCH ×2 (08:00→17:29)
[2019-03-10] MEDS: FERROUS SULFATE 325 MG TABLET. PO SCH ×2 (08:00→17:00)
[2019-03-10] MEDS: amLODIPine BESYLATE 2.5 MG TABLET PO SCH (08:01)
[2019-03-10] MEDS: SERTRALINE 25 MG TABLET. PO SCH (08:01)
[2019-03-10] MEDS: QUEtiapine 50 MG TABLET. PO SCH ×2 (08:01→13:52)
[2019-03-10] MEDS: POLYETHYLENE GLYCOL 3350 17 GM PACKET. PO SCH (08:01)
[2019-03-10] MEDS: DOCUSATE SODIUM 100 MG CAPSULE PO SCH ×2 (08:02→19:51)
[2019-03-10] MEDS: LACTOBACILLUS RHAMNOSUS GG 1 CAPSULE. PO SCH ×2 (08:02→19:51)
[2019-03-10] MEDS: SPIRONOLACTONE 25 MG TABLET PO SCH (08:02)
[2019-03-10] MEDS: DICYCLOMINE HCL 20 MG TABLET PO SCH (08:03)
[2019-03-10] MEDS: ISOSORBIDE MONONITRATE ER 30 MG TAB.ER.24H PO SCH (08:03)
[2019-03-10] MEDS: levETIRAcetam 500 MG TABLET PO SCH ×2 (08:03→19:52)
[2019-03-10] MEDS: HYDROcodone/APAP 10/325 1 TAB TABLET PO SCH ×2 (08:25→19:51)
--- NOTE | 2019-03-10 09:43 | PN ---
DATE: 03/09/2019 PSYCHIATRIC PROGRESS NOTE This late entry, 03/09/2019, covers elements not covered in my initial note. SUBJECTIVE: I met with the patient in the evening at length. The patient slept 7 hours last previous night. She has a skin tear to the right rosado, but otherwise compliant, somewhat anxious. Denies active suicidal ideation. Still remains depressed, but minimizes this. REVIEW OF SYSTEMS: Ambulation impaired, in wheelchair. No CV, , pulmonary, eye system symptoms on review. MENTAL STATUS EXAM: Oriented reasonably. Speech is coherent, abstraction fair, computation impaired, language function intact, attention span short. Mood and affect somewhat withdrawn, anxious at times. LABORATORY DATA: Reviewed. No active suicidal ideation. IMPRESSION: Bipolar 1 disorder, mixed versus depressed; anxiety disorder, unspecified; psychosis, unspecified. PLAN: Continue current psychotropics and Celexa was changed to Zoloft. Maintain Remeron 30 mg at bedtime, Seroquel 50 mg b.i.d. and 100 mg at bedtime. She does have some short-term memory deficits. We will consider using a mood stabilizer if needed. MAN Mamadou MILLER MD DR: DELILAH/nathan JOB#: [id number] / [id number]
[2019-03-10 16:17] VITALS: BP 128/69
[2019-03-10] MEDS: MIRTAZAPINE 30 MG TABLET PO SCH (19:52)
[2019-03-10] MEDS: QUEtiapine 100 MG TABLET. PO SCH (19:52)
--- NOTE | 2019-03-10 22:17 | PDOC ---
Exam Note: Alek Note: Please also refer to the separate dictated note~for this date of service dictated separately.~Patient seen individually. Discussed the patient with Nursing staff reviewed the chart.~Reviewed interim history and current functioning. Reviewed vital signs,~Labs/ Radiology~and current medications noted below. Continue current treatment with the changes noted in the dictated addendum note Assessment: Vital Signs/I&O: Vital Signs Date Time Temp Pulse Resp B/P (MAP) Pulse Ox O2 Delivery O2 Flow Rate FiO2 03/10/19 20:55 18 Room Air 03/10/19 17:29 70 128/69 03/10/19 16:17 97.4 94 I & O 03/09/19 03/09/19 03/10/19 14:59 22:59 06:59 Intake Total 1080 ml 480 ml Balance 1080 ml 480 ml Current Medications: I have reviewed the current psychotropics carefully including drug interactions. Risk benefit ratio favors no change other than as noted in my dictated progress note. Diagnosis: Problems: (1) Anxiety disorder (2) Dementia, vascular, with delusions (3) Dementia, vascular, with depression (4) Major depressive disorder, recurrent episode (5) Impulse control disorder (6) Mild cognitive impairment JUAN MILLER MD Mar 10, 2019 22:17
[2019-03-11 05:50] VITALS: BP 109/66
[2019-03-11] MEDS: levETIRAcetam 500 MG TABLET PO SCH ×2 (08:20→19:17)
[2019-03-11] MEDS: ISOSORBIDE MONONITRATE ER 30 MG TAB.ER.24H PO SCH (08:20)
[2019-03-11] MEDS: DICYCLOMINE HCL 20 MG TABLET PO SCH (08:21)
[2019-03-11] MEDS: SERTRALINE 25 MG TABLET. PO SCH (08:21)
[2019-03-11] MEDS: amLODIPine BESYLATE 2.5 MG TABLET PO SCH (08:21)
[2019-03-11] MEDS: LACTOBACILLUS RHAMNOSUS GG 1 CAPSULE. PO SCH ×2 (08:21→19:17)
[2019-03-11] MEDS: DOCUSATE SODIUM 100 MG CAPSULE PO SCH ×2 (08:22→19:18)
[2019-03-11] MEDS: POLYETHYLENE GLYCOL 3350 17 GM PACKET. PO SCH (08:22)
[2019-03-11] MEDS: SPIRONOLACTONE 25 MG TABLET PO SCH (08:22)
[2019-03-11] MEDS: CARVEDILOL 12.5 MG TABLET PO SCH ×2 (08:22→15:51)
[2019-03-11] MEDS: FERROUS SULFATE 325 MG TABLET. PO SCH ×2 (08:22→15:51)
[2019-03-11] MEDS: QUEtiapine 50 MG TABLET. PO SCH ×2 (08:22→14:02)
[2019-03-11] MEDS: HYDROcodone/APAP 10/325 1 TAB TABLET PO SCH ×2 (08:33→20:14)
[2019-03-11 16:00] VITALS: BP 97/58
[2019-03-11] MEDS: QUEtiapine 100 MG TABLET. PO SCH (19:17)
[2019-03-11] MEDS: MIRTAZAPINE 30 MG TABLET PO SCH (19:18)
[2019-03-11] MEDS: AMOXICILLIN/K CLAV 500/125MG TABLET. PO SCH (20:13)
--- NOTE | 2019-03-11 22:27 | PDOC ---
Exam Note: Alek Note: Please also refer to the separate dictated note~for this date of service dictated separately.~Patient seen individually. Discussed the patient with Nursing staff reviewed the chart.~Reviewed interim history and current functioning. Reviewed vital signs,~Labs/ Radiology~and current medications noted below. Continue current treatment with the changes noted in the dictated addendum note Assessment: Vital Signs/I&O: Vital Signs Date Time Temp Pulse Resp B/P (MAP) Pulse Ox O2 Delivery O2 Flow Rate FiO2 03/11/19 20:14 18 95 03/11/19 16:00 97.3 62 97/58 (71) 03/10/19 20:55 Room Air I & O 03/10/19 03/10/19 03/11/19 14:59 22:59 06:59 Intake Total 600 ml 0 ml 420 ml Balance 600 ml 0 ml 420 ml Current Medications: Meds: Current Medications Medications (Trade) Dose Ordered Sig/Lucio Route PRN Reason Start Time Stop Time Status Last Admin Dose Admin Amoxicillin/ Clavulanate Potassium (Augmentin 500/ 125mg) 1 tab BID PO 03/11/19 21:00 03/18/19 20:59 03/11/19 20:13 I have reviewed the current psychotropics carefully including drug interactions. Risk benefit ratio favors no change other than as noted in my dictated progress note. Diagnosis: Problems: (1) Anxiety disorder (2) Dementia, vascular, with delusions (3) Dementia, vascular, with depression (4) Major depressive disorder, recurrent episode (5) Impulse control disorder (6) Mild cognitive impairment (7) Bipolar 1 disorder, mixed JUAN MILLER MD Mar 11, 2019 22:27
--- NOTE | 2019-03-11 23:16 | PN ---
DATE: 03/10/2019 PSYCHIATRIC PROGRESS NOTE This is a late entry 03/10/2019, covers the elements not covered in my initial note. SUBJECTIVE: I met with the patient in the evening of 03/10/2019. The patient slept 8-1/2 hours previous night. The patient is doing better, not aggressive. Denies suicidal ideation. REVIEW OF SYSTEMS: Ambulation impaired, in wheelchair. No CV, , pulmonary, eye, ENT system symptoms on review. Does admit to some tiredness. MENTAL STATUS EXAM: Reasonably oriented. Speech has some latency, often responses monosyllabic. Abstraction fair, computation impaired, language function intact, attention span short. Mood and affect somewhat withdrawn. LABORATORY DATA: Reviewed. IMPRESSION: Unchanged from initial note. PLAN: No change from initial note. Maintain Remeron, Seroquel, and Zoloft for now. MAN Mamadou MILLER MD DR: DELILAH/nathan JOB#: [id number] / [id number]
[2019-03-12] MEDS: ACETAMINOPHEN 325 MG TABLET PO PRN (04:46)
[2019-03-12 06:40] VITALS: BP 109/68
[2019-03-12] MEDS: POLYETHYLENE GLYCOL 3350 17 GM PACKET. PO SCH (08:12)
[2019-03-12] MEDS: levETIRAcetam 500 MG TABLET PO SCH ×2 (08:13→19:56)
[2019-03-12] MEDS: ISOSORBIDE MONONITRATE ER 30 MG TAB.ER.24H PO SCH (08:13)
[2019-03-12] MEDS: AMOXICILLIN/K CLAV 500/125MG TABLET. PO SCH ×2 (08:13→19:55)
[2019-03-12] MEDS: FERROUS SULFATE 325 MG TABLET. PO SCH ×2 (08:13→17:17)
[2019-03-12] MEDS: SPIRONOLACTONE 25 MG TABLET PO SCH (08:13)
[2019-03-12] MEDS: LACTOBACILLUS RHAMNOSUS GG 1 CAPSULE. PO SCH ×2 (08:14→19:55)
[2019-03-12] MEDS: SERTRALINE 25 MG TABLET. PO SCH (08:14)
[2019-03-12] MEDS: DOCUSATE SODIUM 100 MG CAPSULE PO SCH ×2 (08:14→19:56)
[2019-03-12] MEDS: amLODIPine BESYLATE 2.5 MG TABLET PO SCH (08:14)
[2019-03-12] MEDS: QUEtiapine 50 MG TABLET. PO SCH ×2 (08:15→13:16)
[2019-03-12] MEDS: DICYCLOMINE HCL 20 MG TABLET PO SCH (08:15)
[2019-03-12] MEDS: CARVEDILOL 12.5 MG TABLET PO SCH ×2 (08:15→17:19)
[2019-03-12] MEDS: HYDROcodone/APAP 10/325 1 TAB TABLET PO SCH ×2 (08:17→19:58)
[2019-03-12] MEDS: QUEtiapine 100 MG TABLET. PO SCH ×2 (13:13→19:56)
[2019-03-12] MEDS: ONDANSETRON ODT 4 MG TAB.RAPDIS PO PRN (15:51)
[2019-03-12 16:42] VITALS: BP 122/71
[2019-03-12] MEDS: MIRTAZAPINE 30 MG TABLET PO SCH (19:55)
--- NOTE | 2019-03-12 22:41 | PDOC ---
Exam Note: Alek Note: Please also refer to the separate dictated note~for this date of service dictated separately.~Patient seen individually. Discussed the patient with Nursing staff reviewed the chart.~Reviewed interim history and current functioning. Reviewed vital signs,~Labs/ Radiology~and current medications noted below. Continue current treatment with the changes noted in the dictated addendum note Assessment: Vital Signs/I&O: Vital Signs Date Time Temp Pulse Resp B/P (MAP) Pulse Ox O2 Delivery O2 Flow Rate FiO2 03/12/19 21:24 95 03/12/19 17:19 60 122/71 03/12/19 16:42 97.6 22 Room Air I & O 03/11/19 03/11/19 03/12/19 14:59 22:59 06:59 Intake Total 720 ml 240 ml Balance 720 ml 240 ml Current Medications: Meds: Current Medications Medications (Trade) Dose Ordered Sig/Lucio Route PRN Reason Start Time Stop Time Status Last Admin Dose Admin Ondansetron HCl (Zofran Odt) 4 mg PRN Q8HRS PRN PO NAUSEA/VOMITING 03/12/19 12:30 03/12/19 15:51 I have reviewed the current psychotropics carefully including drug interactions. Risk benefit ratio favors no change other than as noted in my dictated progress note. Diagnosis: Problems: (1) Anxiety disorder (2) Dementia, vascular, with delusions (3) Dementia, vascular, with depression (4) Major depressive disorder, recurrent episode (5) Impulse control disorder (6) Mild cognitive impairment (7) Bipolar 1 disorder, mixed JUAN MILLER MD Mar 12, 2019 22:41
--- NOTE | 2019-03-13 00:15 | PN ---
DATE: 03/11/2019 PSYCHIATRIC PROGRESS NOTE This late entry 03/11/2019 covers the elements not covered in my initial note. SUBJECTIVE: I met with the patient in the evening of 03/11/2019 at length. The patient slept 7-1/2 hours previous night. She has done better. No overt behaviors noted. Less anxious. Denies active suicidal ideation. REVIEW OF SYSTEMS: Ambulation impaired, in wheelchair. No CV, , pulmonary, eye system symptoms on review. MENTAL STATUS EXAM: Oriented reasonably. Speech is coherent, abstraction fair, computation impaired, language function intact, attention span short. Mood and affect less depressed, still anxious. LABORATORY DATA: Reviewed. IMPRESSION: Unchanged from initial note. PLAN: No change from initial note. MAN Mamadou MILLER MD DR: DELILAH/nathan JOB#: [id number] / [id number]
[2019-03-13 06:29] VITALS: BP 107/69
[2019-03-13] MEDS: LACTOBACILLUS RHAMNOSUS GG 1 CAPSULE. PO SCH ×2 (07:39→19:28)
[2019-03-13] MEDS: QUEtiapine 50 MG TABLET. PO SCH ×2 (07:39→13:51)
[2019-03-13] MEDS: levETIRAcetam 500 MG TABLET PO SCH ×2 (07:40→19:28)
[2019-03-13] MEDS: DOCUSATE SODIUM 100 MG CAPSULE PO SCH ×2 (07:40→19:28)
[2019-03-13] MEDS: DICYCLOMINE HCL 20 MG TABLET PO SCH (07:40)
[2019-03-13] MEDS: FERROUS SULFATE 325 MG TABLET. PO SCH ×2 (07:41→16:45)
[2019-03-13] MEDS: SERTRALINE 25 MG TABLET. PO SCH (07:41)
[2019-03-13] MEDS: amLODIPine BESYLATE 2.5 MG TABLET PO SCH (07:41)
[2019-03-13] MEDS: ISOSORBIDE MONONITRATE ER 30 MG TAB.ER.24H PO SCH (07:42)
[2019-03-13] MEDS: SPIRONOLACTONE 25 MG TABLET PO SCH (07:42)
[2019-03-13] MEDS: CARVEDILOL 12.5 MG TABLET PO SCH ×2 (07:43→16:46)
[2019-03-13] MEDS: POLYETHYLENE GLYCOL 3350 17 GM PACKET. PO SCH (07:45)
[2019-03-13] MEDS: AMOXICILLIN/K CLAV 500/125MG TABLET. PO SCH (07:45)
[2019-03-13] MEDS: HYDROcodone/APAP 10/325 1 TAB TABLET PO SCH ×2 (12:13→19:28)
[2019-03-13 15:58] VITALS: BP 160/72
[2019-03-13] MEDS: MIRTAZAPINE 30 MG TABLET PO SCH (19:28)
[2019-03-13] MEDS: QUEtiapine 100 MG TABLET. PO SCH (19:28)
[2019-03-13] MEDS: CEFDINIR 300 MG CAPSULE PO SCH (19:45)
--- NOTE | 2019-03-13 22:16 | PDOC ---
Exam Note: Alek Note: Please also refer to the separate dictated note~for this date of service dictated separately.~Patient seen individually. Discussed the patient with Nursing staff reviewed the chart.~Reviewed interim history and current functioning. Reviewed vital signs,~Labs/ Radiology~and current medications noted below. Continue current treatment with the changes noted in the dictated addendum note Assessment: Vital Signs/I&O: Vital Signs Date Time Temp Pulse Resp B/P (MAP) Pulse Ox O2 Delivery O2 Flow Rate FiO2 03/13/19 21:33 95 03/13/19 16:46 66 160/72 03/13/19 15:58 97.4 19 Room Air I & O 03/12/19 03/12/19 03/13/19 15:00 23:00 07:00 Intake Total 600 ml 240 ml Balance 600 ml 240 ml Current Medications: Meds: Current Medications Medications (Trade) Dose Ordered Sig/Lucio Route PRN Reason Start Time Stop Time Status Last Admin Dose Admin Cefdinir (Omnicef) 300 mg BID PO 03/13/19 21:00 03/18/19 20:59 03/13/19 19:45 I have reviewed the current psychotropics carefully including drug interactions. Risk benefit ratio favors no change other than as noted in my dictated progress note. Diagnosis: Problems: (1) Anxiety disorder (2) Dementia, vascular, with delusions (3) Dementia, vascular, with depression (4) Major depressive disorder, recurrent episode (5) Impulse control disorder (6) Mild cognitive impairment (7) Bipolar 1 disorder, mixed JUAN MILLER MD Mar 13, 2019 22:16
--- NOTE | 2019-03-14 04:29 | PN ---
DATE: 03/12/2019 This late entry 03/12/2019 covers elements not covered in my initial note. SUBJECTIVE: I met with the patient in the evening of 03/12/2019 and staffed at a treatment team meeting with the entire team in the morning and the patient's daughter, Dayana, attended the conference. Reviewed the patient's history, diagnoses, progress, current medications. She has been cooperative with care, pleasant and calmer, sleeping average 6-1/2 hours. Appetite 50-75%. Daughter shared that in the past, she used to read magazines, but that has reduced. She expects her to visit her at the custodial almost daily and when he does not, she gets overwhelmed. We talked about starting psychotherapy with a psychologist at the custodial. On the day of her admission, reportedly, she called her daughter 12 times and for the last time when she could not contact the daughter, she then voiced her suicidal ideation and wrapped the cord around her neck prompting admission. REVIEW OF SYSTEMS: Ambulation impaired, in wheelchair. No CV, , pulmonary, eye system symptoms on review. MENTAL STATUS EXAM: Reasonably oriented. Speech is coherent, abstraction fair, computation impaired, language function intact, attention span short. Mood is somewhat dysphoric, but improved. No suicidal ideation. LABORATORY DATA: Reviewed. IMPRESSION: Major depressive disorder with psychotic features in partial remission; anxiety disorder, unspecified; mild cognitive impairment. PLAN: Continue current psychotropics. Start psychotherapy back in custodial. Possible transition to custodial, 03/13/2019. JUAN MILLER MD DR: DELILAH/nathan JOB#: [id number] / [id number]
[2019-03-14 05:31] VITALS: BP 95/60
[2019-03-14] MEDS: CARVEDILOL 12.5 MG TABLET PO SCH ×2 (08:00→16:05)
[2019-03-14] MEDS: FERROUS SULFATE 325 MG TABLET. PO SCH ×2 (08:06→16:04)
[2019-03-14] MEDS: SPIRONOLACTONE 25 MG TABLET PO SCH (08:06)
[2019-03-14] MEDS: LACTOBACILLUS RHAMNOSUS GG 1 CAPSULE. PO SCH ×2 (08:07→19:21)
[2019-03-14] MEDS: DOCUSATE SODIUM 100 MG CAPSULE PO SCH ×2 (08:07→19:21)
[2019-03-14] MEDS: DICYCLOMINE HCL 20 MG TABLET PO SCH (08:07)
[2019-03-14] MEDS: ISOSORBIDE MONONITRATE ER 30 MG TAB.ER.24H PO SCH (08:07)
[2019-03-14] MEDS: levETIRAcetam 500 MG TABLET PO SCH ×2 (08:07→19:21)
[2019-03-14] MEDS: HYDROcodone/APAP 10/325 1 TAB TABLET PO SCH ×2 (08:07→19:21)
[2019-03-14] MEDS: CEFDINIR 300 MG CAPSULE PO SCH ×2 (08:08→19:21)
[2019-03-14] MEDS: SERTRALINE 25 MG TABLET. PO SCH (08:08)
[2019-03-14] MEDS: QUEtiapine 50 MG TABLET. PO SCH ×2 (08:08→13:54)
[2019-03-14] MEDS: POLYETHYLENE GLYCOL 3350 17 GM PACKET. PO SCH (08:08)
[2019-03-14] MEDS: amLODIPine BESYLATE 2.5 MG TABLET PO SCH (08:08)
[2019-03-14 09:33] LABS: BASO % 0 % (0-3); EOS # 0.2 x10^3/uL (0.0-0.7); EOS % 3 % (0-3); HEMATOCRIT 36.7 % (36.0-47.0); HEMOGLOBIN 12.2 g/dL (12.0-15.5); LYMPH # 0.7 x10^3/uL (1.0-4.8); LYMPH % 14 % (24-48); MEAN CORPUSCULAR HEMOGLOBIN 31 pg (25-35); MEAN CORPUSCULAR HGB CONC 33 g/dL (31-37); MEAN CORPUSCULAR VOLUME 93 fL (79-100); MONO # 0.3 x10^3/uL (0.0-1.1); MONO % 6 % (0-9); NEUT # 3.8 x10^3uL (1.8-7.7); NEUT % 77 % (31-73); PLATELET COUNT 119 x10^3/uL (140-400); RED BLOOD COUNT 3.94 x10^6/uL (3.50-5.40); RED CELL DISTRIBUTION WIDTH 15.4 % (11.5-14.5); WHITE BLOOD COUNT 4.9 x10^3/uL (4.0-11.0)
[2019-03-14 09:40] LABS: ALBUMIN 3.3 g/dL (3.4-5.0); ALBUMIN/GLOBULIN RATIO 0.9 (1.0-1.7); CALCIUM 9.1 mg/dL (8.5-10.1); CREATININE 0.9 mg/dL (0.6-1.0); GFR 59.9; POTASSIUM 4.1 mmol/L (3.5-5.1); TOTAL BILIRUBIN 0.2 mg/dL (0.2-1.0); TOTAL PROTEIN 6.9 g/dL (6.4-8.2)
[2019-03-14] MEDS: CHOLECALCIFEROL (VITAMIN D3) 50,000 UNIT CAPSULE PO SCH (13:54)
[2019-03-14 15:35] VITALS: BP 121/68
[2019-03-14] MEDS: QUEtiapine 100 MG TABLET. PO SCH (19:21)
[2019-03-14] MEDS: MIRTAZAPINE 30 MG TABLET PO SCH (19:21)
--- NOTE | 2019-03-14 23:09 | PDOC ---
Exam Note: Alek Note: Please also refer to the separate dictated note~for this date of service dictated separately.~Patient seen individually. Discussed the patient with Nursing staff reviewed the chart.~Reviewed interim history and current functioning. Reviewed vital signs,~Labs/ Radiology~and current medications noted below. Continue current treatment with the changes noted in the dictated addendum note Assessment: Vital Signs/I&O: Vital Signs Date Time Temp Pulse Resp B/P (MAP) Pulse Ox O2 Delivery O2 Flow Rate FiO2 03/14/19 20:42 96 03/14/19 16:05 68 121/68 03/14/19 15:35 98.9 16 03/14/19 05:31 Room Air I & O 03/13/19 03/13/19 03/14/19 15:00 23:00 07:00 Intake Total 600 ml 240 ml 240 ml Balance 600 ml 240 ml 240 ml Labs: Laboratory Tests Test 03/14/19 09:17 White Blood Count 4.9 x10^3/uL (4.0-11.0) Red Blood Count 3.94 x10^6/uL (3.50-5.40) Hemoglobin 12.2 g/dL (12.0-15.5) Hematocrit 36.7 % (36.0-47.0) Mean Corpuscular Volume 93 fL (79-100) Mean Corpuscular Hemoglobin 31 pg (25-35) Mean Corpuscular Hemoglobin Concent 33 g/dL (31-37) Red Cell Distribution Width 15.4 % (11.5-14.5) H Platelet Count 119 x10^3/uL (140-400) L Neutrophils (%) (Auto) 77 % (31-73) H Lymphocytes (%) (Auto) 14 % (24-48) L Monocytes (%) (Auto) 6 % (0-9) Eosinophils (%) (Auto) 3 % (0-3) Basophils (%) (Auto) 0 % (0-3) Neutrophils # (Auto) 3.8 x10^3uL (1.8-7.7) Lymphocytes # (Auto) 0.7 x10^3/uL (1.0-4.8) L Monocytes # (Auto) 0.3 x10^3/uL (0.0-1.1) Eosinophils # (Auto) 0.2 x10^3/uL (0.0-0.7) Basophils # (Auto) 0.0 x10^3/uL (0.0-0.2) Sodium Level 143 mmol/L (136-145) Potassium Level 4.1 mmol/L (3.5-5.1) Chloride Level 105 mmol/L (98-107) Carbon Dioxide Level 29 mmol/L (21-32) Anion Gap 9 (6-14) Blood Urea Nitrogen 13 mg/dL (7-20) Creatinine 0.9 mg/dL (0.6-1.0) Estimated GFR (Cockcroft-Gault) 59.9 BUN/Creatinine Ratio 14 (6-20) Glucose Level 158 mg/dL (70-99) H Calcium Level 9.1 mg/dL (8.5-10.1) Total Bilirubin 0.2 mg/dL (0.2-1.0) Aspartate Amino Transferase (AST) 10 U/L (15-37) L Alanine Aminotransferase (ALT) 10 U/L (14-59) L Alkaline Phosphatase 84 U/L (46-116) Total Protein 6.9 g/dL (6.4-8.2) Albumin 3.3 g/dL (3.4-5.0) L Albumin/Globulin Ratio 0.9 (1.0-1.7) L Current Medications: Meds: Current Medications Medications (Trade) Dose Ordered Sig/Lucio Route PRN Reason Start Time Stop Time Status Last Admin Dose Admin Vitamin D (Vitamin D3) 50,000 unit WEEKLY PO 03/14/19 12:45 03/14/19 13:54 I have reviewed the current psychotropics carefully including drug interactions. Risk benefit ratio favors no change other than as noted in my dictated progress note. Diagnosis: Problems: (1) Anxiety disorder (2) Dementia, vascular, with delusions (3) Dementia, vascular, with depression (4) Major depressive disorder, recurrent episode (5) Impulse control disorder (6) Mild cognitive impairment (7) Bipolar 1 disorder, mixed JUAN MILLER MD Mar 14, 2019 23:09
[2019-03-15 06:21] VITALS: BP 137/79
[2019-03-15] MEDS: FERROUS SULFATE 325 MG TABLET. PO SCH ×2 (07:49→16:11)
[2019-03-15] MEDS: DOCUSATE SODIUM 100 MG CAPSULE PO SCH ×2 (07:49→19:47)
[2019-03-15] MEDS: LACTOBACILLUS RHAMNOSUS GG 1 CAPSULE. PO SCH ×2 (07:49→19:47)
[2019-03-15] MEDS: SPIRONOLACTONE 25 MG TABLET PO SCH (07:49)
[2019-03-15] MEDS: CARVEDILOL 12.5 MG TABLET PO SCH ×2 (07:49→16:12)
[2019-03-15] MEDS: DICYCLOMINE HCL 20 MG TABLET PO SCH (07:49)
[2019-03-15] MEDS: amLODIPine BESYLATE 2.5 MG TABLET PO SCH (07:50)
[2019-03-15] MEDS: levETIRAcetam 500 MG TABLET PO SCH ×2 (07:50→19:47)
[2019-03-15] MEDS: POLYETHYLENE GLYCOL 3350 17 GM PACKET. PO SCH (07:50)
[2019-03-15] MEDS: ISOSORBIDE MONONITRATE ER 30 MG TAB.ER.24H PO SCH (07:50)
[2019-03-15] MEDS: CEFDINIR 300 MG CAPSULE PO SCH ×2 (07:51→19:47)
[2019-03-15] MEDS: SERTRALINE 25 MG TABLET. PO SCH (07:51)
[2019-03-15] MEDS: QUEtiapine 50 MG TABLET. PO SCH ×2 (07:51→13:10)
[2019-03-15] MEDS: HYDROcodone/APAP 10/325 1 TAB TABLET PO SCH ×2 (07:52→19:48)
[2019-03-15 16:19] VITALS: BP 117/76
[2019-03-15] MEDS: MIRTAZAPINE 30 MG TABLET PO SCH (19:47)
[2019-03-15] MEDS: QUEtiapine 100 MG TABLET. PO SCH (19:47)
--- NOTE | 2019-03-15 21:46 | PDOC ---
Exam Note: Alek Note: Please also refer to the separate dictated note~for this date of service dictated separately.~Patient seen individually. Discussed the patient with Nursing staff reviewed the chart.~Reviewed interim history and current functioning. Reviewed vital signs,~Labs/ Radiology~and current medications noted below. Continue current treatment with the changes noted in the dictated addendum note Assessment: Vital Signs/I&O: Vital Signs Date Time Temp Pulse Resp B/P (MAP) Pulse Ox O2 Delivery O2 Flow Rate FiO2 03/15/19 19:48 97 03/15/19 16:19 97.8 77 16 117/76 (90) 03/15/19 06:21 Room Air I & O 03/14/19 03/14/19 03/15/19 15:00 23:00 07:00 Intake Total 720 ml 0 ml 240 ml Balance 720 ml 0 ml 240 ml Current Medications: I have reviewed the current psychotropics carefully including drug interactions. Risk benefit ratio favors no change other than as noted in my dictated progress note. Diagnosis: Problems: (1) Anxiety disorder (2) Dementia, vascular, with delusions (3) Dementia, vascular, with depression (4) Major depressive disorder, recurrent episode (5) Impulse control disorder (6) Mild cognitive impairment (7) Bipolar 1 disorder, mixed JUAN MILLER MD Mar 15, 2019 21:46
--- NOTE | 2019-03-15 22:56 | PN ---
DATE: 03/14/2019 This late entry of 03/14/2019 covers the elements not covered in my initial noted. SUBJECTIVE: I met with the patient in the evening. The patient slept 5-1/2 hours previous night. Overall, she is doing better, had a good day and night. On 03/13/2019, I tried to call physician reviewer for [employer] since plan was to transfer her to the snf on 03/13/2019 but the snf refused to accept her back. I did get a voicemail that they are only open Saturday through Saturday 8 to 5 and I will try and call back then. REVIEW OF SYSTEMS: Ambulation impaired, in wheelchair. No CV, , pulmonary, eye system symptoms on review. MENTAL STATUS EXAM: Reasonably oriented. Speech is coherent, abstraction fair, computation impaired, language function intact. Mood and affect showing improvement. LABORATORY DATA: Reviewed. IMPRESSION: Unchanged from initial note. PLAN: No change from initial note. JUNA MILLER MD DR: DELILAH/nathan JOB#: [id number] / [id number]
--- NOTE | 2019-03-15 23:04 | PN ---
DATE: 03/13/2019 This late entry 03/13/2019 covers elements not covered in my initial note. SUBJECTIVE: I met with the patient evening of 03/13/2019. The patient slept 6 hours previous night, compliant with her medications. No suicidal ideation. She remains on Augmentin with complaints of some nausea. REVIEW OF SYSTEMS: Ambulation impaired, in wheelchair. No CV, , eye system symptoms on review other than nausea and Augmentin is being changed to Omnicef. The plan is to transition her to the [facility] 03/14/2019. MENTAL STATUS EXAM: Reasonably oriented. Speech is coherent, abstraction fair, computation impaired, language function intact, attention span short. Mood and affect showing improvement. LABORATORY DATA: Reviewed. IMPRESSION: Unchanged from initial note. PLAN: Continue Omnicef for her UTI. Continue Remeron, Seroquel along with Zoloft. Possible transition to [facility] 03/14/2019. JUAN MILLER MD DR: DELILAH/nathan JOB#: [id number] / [id number]
[2019-03-16 06:52] VITALS: BP 109/57
[2019-03-16] MEDS: DOCUSATE SODIUM 100 MG CAPSULE PO SCH ×3 (07:36→20:58)
[2019-03-16] MEDS: SPIRONOLACTONE 25 MG TABLET PO SCH (07:36)
[2019-03-16] MEDS: LACTOBACILLUS RHAMNOSUS GG 1 CAPSULE. PO SCH ×2 (07:36→20:05)
[2019-03-16] MEDS: DICYCLOMINE HCL 20 MG TABLET PO SCH (07:36)
[2019-03-16] MEDS: FERROUS SULFATE 325 MG TABLET. PO SCH ×2 (07:36→16:21)
[2019-03-16] MEDS: CARVEDILOL 12.5 MG TABLET PO SCH ×2 (07:38→16:21)
[2019-03-16] MEDS: ISOSORBIDE MONONITRATE ER 30 MG TAB.ER.24H PO SCH (07:38)
[2019-03-16] MEDS: levETIRAcetam 500 MG TABLET PO SCH ×2 (07:38→20:05)
[2019-03-16] MEDS: POLYETHYLENE GLYCOL 3350 17 GM PACKET. PO SCH (07:38)
[2019-03-16] MEDS: QUEtiapine 50 MG TABLET. PO SCH ×2 (07:40→13:29)
[2019-03-16] MEDS: SERTRALINE 25 MG TABLET. PO SCH (07:40)
[2019-03-16] MEDS: CEFDINIR 300 MG CAPSULE PO SCH ×2 (07:40→20:05)
[2019-03-16] MEDS: HYDROcodone/APAP 10/325 1 TAB TABLET PO SCH ×2 (07:44→20:06)
[2019-03-16] MEDS: amLODIPine BESYLATE 2.5 MG TABLET PO SCH (09:00)
[2019-03-16 16:21] VITALS: BP 156/84
[2019-03-16] MEDS: QUEtiapine 100 MG TABLET. PO SCH (20:05)
[2019-03-16] MEDS: MIRTAZAPINE 30 MG TABLET PO SCH (20:05)
--- NOTE | 2019-03-16 22:33 | PDOC ---
Exam Note: Alek Note: Please also refer to the separate dictated note~for this date of service dictated separately.~Patient seen individually. Discussed the patient with Nursing staff reviewed the chart.~Reviewed interim history and current functioning. Reviewed vital signs,~Labs/ Radiology~and current medications noted below. Continue current treatment with the changes noted in the dictated addendum note Assessment: Vital Signs/I&O: Vital Signs Date Time Temp Pulse Resp B/P (MAP) Pulse Ox O2 Delivery O2 Flow Rate FiO2 03/16/19 21:27 94 03/16/19 16:21 97.8 70 16 156/84 (108) 03/15/19 06:21 Room Air I & O 03/15/19 03/15/19 03/16/19 14:59 22:59 06:59 Intake Total 480 ml 240 ml 0 ml Balance 480 ml 240 ml 0 ml Current Medications: I have reviewed the current psychotropics carefully including drug interactions. Risk benefit ratio favors no change other than as noted in my dictated progress note. Diagnosis: Problems: (1) Anxiety disorder (2) Dementia, vascular, with delusions (3) Dementia, vascular, with depression (4) Major depressive disorder, recurrent episode (5) Impulse control disorder (6) Mild cognitive impairment (7) Bipolar 1 disorder, mixed JUAN MILLER MD Mar 16, 2019 22:33
[2019-03-17] MEDS: ACETAMINOPHEN 325 MG TABLET PO PRN (01:18)
[2019-03-17 06:02] VITALS: BP 112/70
[2019-03-17] MEDS: CARVEDILOL 12.5 MG TABLET PO SCH ×2 (08:09→17:00)
[2019-03-17] MEDS: FERROUS SULFATE 325 MG TABLET. PO SCH ×2 (08:09→17:06)
[2019-03-17] MEDS: SPIRONOLACTONE 25 MG TABLET PO SCH (08:09)
[2019-03-17] MEDS: DICYCLOMINE HCL 20 MG TABLET PO SCH (08:10)
[2019-03-17] MEDS: DOCUSATE SODIUM 100 MG CAPSULE PO SCH ×2 (08:10→21:03)
[2019-03-17] MEDS: LACTOBACILLUS RHAMNOSUS GG 1 CAPSULE. PO SCH ×2 (08:10→21:03)
[2019-03-17] MEDS: levETIRAcetam 500 MG TABLET PO SCH ×2 (08:11→21:03)
[2019-03-17] MEDS: ISOSORBIDE MONONITRATE ER 30 MG TAB.ER.24H PO SCH (08:11)
[2019-03-17] MEDS: POLYETHYLENE GLYCOL 3350 17 GM PACKET. PO SCH (08:12)
[2019-03-17] MEDS: HYDROcodone/APAP 10/325 1 TAB TABLET PO SCH ×2 (08:12→21:05)
[2019-03-17] MEDS: amLODIPine BESYLATE 2.5 MG TABLET PO SCH (08:13)
[2019-03-17] MEDS: CEFDINIR 300 MG CAPSULE PO SCH ×2 (08:13→21:03)
[2019-03-17] MEDS: QUEtiapine 50 MG TABLET. PO SCH ×2 (08:13→13:15)
[2019-03-17] MEDS: SERTRALINE 25 MG TABLET. PO SCH (08:13)
[2019-03-17 16:20] VITALS: BP 111/74
[2019-03-17] MEDS: MIRTAZAPINE 30 MG TABLET PO SCH (21:03)
[2019-03-17] MEDS: QUEtiapine 100 MG TABLET. PO SCH (21:03)
--- NOTE | 2019-03-17 22:05 | PN ---
DATE: 03/15/2019 PSYCHIATRIC PROGRESS NOTE This is a late entry 03/15/2019, covers the elements not covered in my initial note. SUBJECTIVE: I met with the patient in the evening of 03/15/2019 at length. The patient slept 8 3/4 hours previous night. She remains somewhat withdrawn, anxious, but denies active suicidal ideation. I tried to call the incg-hz-uyyx review line on Saturday03/13/2019 since the assisted would not accept the patient back at their facility and the planned discharge for that day had to be postponed, but the [id number] review line closed at 5:00 p.m. and I had called shortly after that, was unable to talk to anyone. Nevertheless, on the unit, the patient has been withdrawn, but otherwise appropriate, somewhat dysphoric, but improved. REVIEW OF SYSTEMS: Ambulation impaired, in wheelchair. No CV, , pulmonary, eye, ENT system symptoms on review. MENTAL STATUS EXAMINATION: The patient is reasonably oriented. Speech is coherent. Abstraction fair, computation impaired. Language function intact. Mood and affect still dysphoric, but improved. No suicidal ideation. LABORATORY DATA: Reviewed. IMPRESSION: Unchanged from the initial note; major depressive disorder, recurrent, in partial remission; anxiety disorder, unspecified; mild cognitive impairment. Rest unchanged. PLAN: Maintain Remeron, Seroquel, Zoloft at current dosage. May consider increasing Zoloft if needed. JUAN MILLER MD DR: DELILAH/nathan JOB#: [id number] / [id number]
--- NOTE | 2019-03-17 22:10 | PN ---
DATE: 03/16/2019 This late entry of 03/16/2019 covers the elements not covered in my initial note. SUBJECTIVE: I met with the patient on the evening of 03/16/2019 at some length. The patient slept 8-1/2 hours previous night. I had a message from Director Of [employer] Marketing and Communication from Social Service staff about a [id number] review on the patient and the family having filed emergency appeal for her discharge since the insurance denied further coverage for the hospitalization. Plan was for the patient to return to the senior care on Saturday, but senior care refused to take her back. She had made a fairly significant suicide attempt prompting this hospitalization, but seems to have stabilized for that and Social Service staff are actively finding alternate placement. As of the time of this dictation, I have contacted the ofbl-gx-swsu review line and scheduled a foxf-[id number] review at 11:30 a.m. on 03/17/[address] June. REVIEW OF SYSTEMS: Ambulation impaired in wheelchair. No CV, , pulmonary, eye system symptoms on review. MENTAL STATUS EXAMINATION: Reasonably oriented. Speech has some latency, coherent, abstraction fair, computation impaired. Language function intact. Attention span short, mood and affect somewhat dysphoric. LABORATORY DATA: Reviewed. IMPRESSION: Unchanged from the initial note. PLAN: No change from the initial note for psychotropics, but again if dysphoric, depressive symptoms worsen consequent to the placement issues, we may have to adjust her Zoloft upwards but for now she appears stable. JUAN MILLER MD DR: DELILAH/nathan JOB#: [id number] / [id number]
--- NOTE | 2019-03-17 22:42 | PDOC ---
Exam Note: Alek Note: Please also refer to the separate dictated note~for this date of service dictated separately.~Patient seen individually. Discussed the patient with Nursing staff reviewed the chart.~Reviewed interim history and current functioning. Reviewed vital signs,~Labs/ Radiology~and current medications noted below. Continue current treatment with the changes noted in the dictated addendum note Assessment: Vital Signs/I&O: Vital Signs Date Time Temp Pulse Resp B/P (MAP) Pulse Ox O2 Delivery O2 Flow Rate FiO2 03/17/19 21:05 18 97 Room Air 03/17/19 16:20 97.5 58 111/74 (86) I & O 03/16/19 03/16/19 03/17/19 14:59 22:59 06:59 Intake Total 600 ml 460 ml Balance 600 ml 460 ml Current Medications: Meds: Current Medications Medications (Trade) Dose Ordered Sig/Lucio Route PRN Reason Start Time Stop Time Status Last Admin Dose Admin Isosorbide Mononitrate (Imdur) 30 mg DAILY PO 03/17/19 09:00 03/17/19 08:11 I have reviewed the current psychotropics carefully including drug interactions. Risk benefit ratio favors no change other than as noted in my dictated progress note. Diagnosis: Problems: (1) Anxiety disorder (2) Dementia, vascular, with delusions (3) Dementia, vascular, with depression (4) Major depressive disorder, recurrent episode (5) Impulse control disorder (6) Mild cognitive impairment (7) Bipolar 1 disorder, mixed JUAN MILLER MD Mar 17, 2019 22:41
[2019-03-18 05:54] VITALS: BP 136/78
[2019-03-18] MEDS: POLYETHYLENE GLYCOL 3350 17 GM PACKET. PO SCH (07:41)
[2019-03-18] MEDS: levETIRAcetam 500 MG TABLET PO SCH ×2 (07:41→19:29)
[2019-03-18] MEDS: FERROUS SULFATE 325 MG TABLET. PO SCH ×2 (07:41→16:39)
[2019-03-18] MEDS: CEFDINIR 300 MG CAPSULE PO SCH ×2 (07:41→19:30)
[2019-03-18] MEDS: SERTRALINE 25 MG TABLET. PO SCH (07:42)
[2019-03-18] MEDS: DICYCLOMINE HCL 20 MG TABLET PO SCH (07:42)
[2019-03-18] MEDS: amLODIPine BESYLATE 2.5 MG TABLET PO SCH (07:42)
[2019-03-18] MEDS: SPIRONOLACTONE 25 MG TABLET PO SCH (07:42)
[2019-03-18] MEDS: DOCUSATE SODIUM 100 MG CAPSULE PO SCH ×2 (07:42→19:29)
[2019-03-18] MEDS: LACTOBACILLUS RHAMNOSUS GG 1 CAPSULE. PO SCH ×2 (07:43→19:28)
[2019-03-18] MEDS: ISOSORBIDE MONONITRATE ER 30 MG TAB.ER.24H PO SCH (07:43)
[2019-03-18] MEDS: CARVEDILOL 12.5 MG TABLET PO SCH ×2 (07:43→16:39)
[2019-03-18] MEDS: QUEtiapine 50 MG TABLET. PO SCH ×2 (07:44→13:55)
[2019-03-18] MEDS: HYDROcodone/APAP 10/325 1 TAB TABLET PO SCH ×2 (07:45→19:32)
[2019-03-18] MEDS: ACETAMINOPHEN 325 MG TABLET PO PRN (13:58)
[2019-03-18 16:20] VITALS: BP 123/73
[2019-03-18] MEDS ORDERED: HYDROcodone/APAP 10/325 1 TAB TABLET PO ONE (17:00)
[2019-03-18] MEDS: QUEtiapine 100 MG TABLET. PO SCH (19:29)
[2019-03-18] MEDS: MIRTAZAPINE 30 MG TABLET PO SCH (19:29)
--- NOTE | 2019-03-18 21:02 | PN ---
DATE: 03/17/2019 PSYCHIATRIC PROGRESS NOTE This late entry 03/17/2019 covers elements not covered in my initial note. SUBJECTIVE: I met with the patient in the evening at some length. Discussed with [facility] nurse manager business process and social service staff and also reviewed the patient with the physician reviewer Dr. June from the insurance company. The patient's senior care [facility] refused to take her back even when we were ready to discharge her last Saturday. For now, the social service staff are actively trying to find placement for her. She slept 7-1/2 hours, had a good night and good day per nursing report. Denies active suicidal ideation. REVIEW OF SYSTEMS: Ambulation impaired, in wheelchair. No CV, , pulmonary, eye, ENT system symptoms on review. MENTAL STATUS EXAM: The patient is oriented to herself, situation. Speech is coherent, has some latency. Abstraction fair, computation impaired, language function intact, attention span short. Mood and affect somewhat withdrawn, but no active suicidal ideation. LABORATORY DATA: Reviewed. IMPRESSION: Major depressive disorder; anxiety disorder, unspecified; mild cognitive impairment. Hepatitis C positive status. PLAN: Continue current psychotropics. Zoloft 75 mg a day, may increase to 100 mg a day. Continue Seroquel, Remeron at current dosage. Transition to senior care as soon as placement arranged. MAN Mamadou MILLER MD DR: DELILAH/nathan JOB#: [id number] / [id number]
--- NOTE | 2019-03-18 22:15 | PDOC ---
Exam Note: Alek Note: Please also refer to the separate dictated note~for this date of service dictated separately.~Patient seen individually. Discussed the patient with Nursing staff reviewed the chart.~Reviewed interim history and current functioning. Reviewed vital signs,~Labs/ Radiology~and current medications noted below. Continue current treatment with the changes noted in the dictated addendum note Assessment: Vital Signs/I&O: Vital Signs Date Time Temp Pulse Resp B/P (MAP) Pulse Ox O2 Delivery O2 Flow Rate FiO2 03/18/19 20:32 18 94 03/18/19 16:39 73 123/73 03/18/19 16:20 98.6 03/18/19 08:45 Room Air I & O 03/17/19 03/17/19 03/18/19 15:00 23:00 07:00 Intake Total 720 ml 240 ml 240 ml Balance 720 ml 240 ml 240 ml Current Medications: Meds: Current Medications Medications (Trade) Dose Ordered Sig/Lucio Route PRN Reason Start Time Stop Time Status Last Admin Dose Admin Acetaminophen/ Hydrocodone Bitart (Lortab 10/325) 1 tab 1X ONCE PO 03/18/19 17:00 03/18/19 17:02 DC 03/18/19 17:26 I have reviewed the current psychotropics carefully including drug interactions. Risk benefit ratio favors no change other than as noted in my dictated progress note. Diagnosis: Problems: (1) Anxiety disorder (2) Dementia, vascular, with delusions (3) Dementia, vascular, with depression (4) Major depressive disorder, recurrent episode (5) Impulse control disorder (6) Mild cognitive impairment (7) Bipolar 1 disorder, mixed JUAN MILLER MD Mar 18, 2019 22:15
[2019-03-19 06:10] VITALS: BP 97/62
[2019-03-19] MEDS: ISOSORBIDE MONONITRATE ER 30 MG TAB.ER.24H PO SCH (07:43)
[2019-03-19] MEDS: DOCUSATE SODIUM 100 MG CAPSULE PO SCH ×2 (08:32→19:14)
[2019-03-19] MEDS: SPIRONOLACTONE 25 MG TABLET PO SCH (08:32)
[2019-03-19] MEDS: levETIRAcetam 500 MG TABLET PO SCH ×2 (08:33→19:15)
[2019-03-19] MEDS: QUEtiapine 50 MG TABLET. PO SCH ×2 (08:33→15:17)
[2019-03-19] MEDS: SERTRALINE 25 MG TABLET. PO SCH (08:33)
[2019-03-19] MEDS: DICYCLOMINE HCL 20 MG TABLET PO SCH (08:34)
[2019-03-19] MEDS: LACTOBACILLUS RHAMNOSUS GG 1 CAPSULE. PO SCH ×2 (08:34→19:14)
[2019-03-19] MEDS: FERROUS SULFATE 325 MG TABLET. PO SCH ×2 (08:34→17:00)
[2019-03-19] MEDS: POLYETHYLENE GLYCOL 3350 17 GM PACKET. PO SCH (08:35)
[2019-03-19] MEDS: HYDROcodone/APAP 10/325 1 TAB TABLET PO SCH ×2 (08:36→19:17)
[2019-03-19 08:49] VITALS: BP 144/84
[2019-03-19] MEDS: CARVEDILOL 12.5 MG TABLET PO SCH ×2 (08:51→17:44)
[2019-03-19] MEDS: amLODIPine BESYLATE 2.5 MG TABLET PO SCH (08:51)
[2019-03-19 16:17] VITALS: BP 131/73
[2019-03-19] MEDS: MIRTAZAPINE 30 MG TABLET PO SCH (19:14)
[2019-03-19] MEDS: QUEtiapine 100 MG TABLET. PO SCH (19:14)
--- NOTE | 2019-03-19 22:19 | PDOC ---
Exam Note: Alek Note: Please also refer to the separate dictated note~for this date of service dictated separately.~Patient seen individually. Discussed the patient with Nursing staff reviewed the chart.~Reviewed interim history and current functioning. Reviewed vital signs,~Labs/ Radiology~and current medications noted below. Continue current treatment with the changes noted in the dictated addendum note Assessment: Vital Signs/I&O: Vital Signs Date Time Temp Pulse Resp B/P (MAP) Pulse Ox O2 Delivery O2 Flow Rate FiO2 03/19/19 20:17 18 94 03/19/19 17:44 111 131/73 03/19/19 16:17 98.6 Room Air I & O 03/18/19 03/18/19 03/19/19 14:59 22:59 06:59 Intake Total 880 ml 240 ml 120 ml Balance 880 ml 240 ml 120 ml Current Medications: I have reviewed the current psychotropics carefully including drug interactions. Risk benefit ratio favors no change other than as noted in my dictated progress note. Diagnosis: Problems: (1) Anxiety disorder (2) Dementia, vascular, with delusions (3) Dementia, vascular, with depression (4) Major depressive disorder, recurrent episode (5) Impulse control disorder (6) Mild cognitive impairment (7) Bipolar 1 disorder, mixed (8) Hemiparesis, left JUAN MILLER MD Mar 19, 2019 22:19
[2019-03-20 05:44] VITALS: BP 116/72
[2019-03-20] MEDS: levETIRAcetam 500 MG TABLET PO SCH ×2 (07:42→19:21)
[2019-03-20] MEDS: POLYETHYLENE GLYCOL 3350 17 GM PACKET. PO SCH (07:42)
[2019-03-20] MEDS: QUEtiapine 50 MG TABLET. PO SCH ×2 (07:43→13:02)
[2019-03-20] MEDS: DOCUSATE SODIUM 100 MG CAPSULE PO SCH ×2 (07:43→19:21)
[2019-03-20] MEDS: DICYCLOMINE HCL 20 MG TABLET PO SCH (07:43)
[2019-03-20] MEDS: LACTOBACILLUS RHAMNOSUS GG 1 CAPSULE. PO SCH ×2 (07:43→19:21)
[2019-03-20] MEDS: FERROUS SULFATE 325 MG TABLET. PO SCH ×2 (07:43→17:33)
[2019-03-20] MEDS: ISOSORBIDE MONONITRATE ER 30 MG TAB.ER.24H PO SCH (07:43)
[2019-03-20] MEDS: SPIRONOLACTONE 25 MG TABLET PO SCH (07:43)
[2019-03-20] MEDS: amLODIPine BESYLATE 2.5 MG TABLET PO SCH (07:44)
[2019-03-20] MEDS: SERTRALINE 25 MG TABLET. PO SCH (07:44)
[2019-03-20] MEDS: CARVEDILOL 12.5 MG TABLET PO SCH ×2 (07:44→17:33)
[2019-03-20] MEDS: HYDROcodone/APAP 10/325 1 TAB TABLET PO SCH ×2 (07:46→19:22)
[2019-03-20] MEDS: ACETAMINOPHEN 325 MG TABLET PO PRN (13:02)
[2019-03-20 15:35] VITALS: BP 107/64
[2019-03-20] MEDS: MIRTAZAPINE 30 MG TABLET PO SCH (19:21)
[2019-03-20] MEDS: QUEtiapine 100 MG TABLET. PO SCH (19:21)
--- NOTE | 2019-03-20 22:24 | PN ---
DATE: 03/19/2019 PSYCHIATRIC PROGRESS NOTE This late entry, 03/19/2019, covers elements not covered in my initial note. SUBJECTIVE: I met with the patient in the evening and staffed at a treatment team meeting with the entire team in the morning. The patient has a good appetite, sleeping average 7 hours, gets tearful at times, wants to go home rather than to a facility. Social service staff is very actively looking for placement since she was rejected by [facility] which is where she came from. She was tearful as I met with her in the evening, isolating herself, talking about wanting to go home, better at the end of our visit. REVIEW OF SYSTEMS: Ambulation impaired with wheelchair. No CV, , pulmonary, eye system symptoms on review. MENTAL STATUS EXAM: Oriented reasonably. Speech has some latency, often responses monosyllabic, low in volume. Abstraction fair, computation impaired, language function intact, attention span short. Mood and affect is withdrawn. LABORATORY DATA: Reviewed. IMPRESSION: Major depressive disorder, recurrent with psychotic features, in partial remission. Rest unchanged. PLAN: Continue psychotropics from initial note. Placement being arranged by social service staff. MAN Mamadou MILLER MD DR: DELILAH/nathan JOB#: [id number] / [id number]
--- NOTE | 2019-03-20 22:26 | PN ---
DATE: 03/18/2019 PSYCHIATRIC PROGRESS NOTE This late entry 03/18/2019 covers elements not covered in my initial note. SUBJECTIVE: I met with the patient in the evening. The patient slept reasonably previous evening. REVIEW OF SYSTEMS: Ambulation impaired, in wheelchair. No CV, , pulmonary, eye system symptoms on review. MENTAL STATUS EXAM: Reasonably oriented. Speech has some latency, coherent, somewhat tearful at times. Abstraction fair, computation impaired, language function intact. Mood and affect is still withdrawn, but no suicidal ideation. LABORATORY DATA: Reviewed. IMPRESSION: Unchanged from initial note. PLAN: Social Service staff is actively trying to find appropriate placement for the patient. PLAN: Continue current psychotropics for now. MAN Mamadou MILLER MD DR: DELILAH/nathan JOB#: [id number] / [id number]
--- NOTE | 2019-03-20 22:34 | PDOC ---
Exam Note: Alek Note: Please also refer to the separate dictated note~for this date of service dictated separately.~Patient seen individually. Discussed the patient with Nursing staff reviewed the chart.~Reviewed interim history and current functioning. Reviewed vital signs,~Labs/ Radiology~and current medications noted below. Continue current treatment with the changes noted in the dictated addendum note Assessment: Vital Signs/I&O: Vital Signs Date Time Temp Pulse Resp B/P (MAP) Pulse Ox O2 Delivery O2 Flow Rate FiO2 03/20/19 20:22 96 03/20/19 17:33 68 107/64 03/20/19 15:35 98.2 16 03/20/19 05:44 Room Air I & O 03/19/19 03/19/19 03/20/19 14:59 22:59 06:59 Intake Total 480 ml 480 ml 120 ml Balance 480 ml 480 ml 120 ml Current Medications: I have reviewed the current psychotropics carefully including drug interactions. Risk benefit ratio favors no change other than as noted in my dictated progress note. Diagnosis: Problems: (1) Anxiety disorder (2) Dementia, vascular, with delusions (3) Dementia, vascular, with depression (4) Major depressive disorder, recurrent episode (5) Impulse control disorder (6) Mild cognitive impairment (7) Bipolar 1 disorder, mixed JUAN MILLER MD Mar 20, 2019 22:34
[2019-03-21 05:29] VITALS: BP 107/66
[2019-03-21] MEDS: POLYETHYLENE GLYCOL 3350 17 GM PACKET. PO SCH (07:32)
[2019-03-21] MEDS: LACTOBACILLUS RHAMNOSUS GG 1 CAPSULE. PO SCH ×2 (07:32→19:29)
[2019-03-21] MEDS: ISOSORBIDE MONONITRATE ER 30 MG TAB.ER.24H PO SCH (07:33)
[2019-03-21] MEDS: amLODIPine BESYLATE 2.5 MG TABLET PO SCH (07:33)
[2019-03-21] MEDS: CARVEDILOL 12.5 MG TABLET PO SCH ×2 (07:33→16:34)
[2019-03-21] MEDS: levETIRAcetam 500 MG TABLET PO SCH ×2 (07:34→19:29)
[2019-03-21] MEDS: DICYCLOMINE HCL 20 MG TABLET PO SCH (07:34)
[2019-03-21] MEDS: QUEtiapine 50 MG TABLET. PO SCH ×2 (07:34→14:57)
[2019-03-21] MEDS: FERROUS SULFATE 325 MG TABLET. PO SCH ×2 (07:34→16:34)
[2019-03-21] MEDS: SPIRONOLACTONE 25 MG TABLET PO SCH (07:35)
[2019-03-21] MEDS: DOCUSATE SODIUM 100 MG CAPSULE PO SCH ×2 (07:35→19:29)
[2019-03-21] MEDS: SERTRALINE 100 MG TABLET. PO SCH (07:37)
[2019-03-21] MEDS: CHOLECALCIFEROL (VITAMIN D3) 50,000 UNIT CAPSULE PO SCH (07:37)
[2019-03-21 07:48] LABS: BASO % 0 % (0-3); EOS # 0.1 x10^3/uL (0.0-0.7); EOS % 3 % (0-3); HEMOGLOBIN 11.3 g/dL (12.0-15.5); LYMPH % 20 % (24-48); MEAN CORPUSCULAR HEMOGLOBIN 31 pg (25-35); MEAN CORPUSCULAR HGB CONC 33 g/dL (31-37); MEAN CORPUSCULAR VOLUME 92 fL (79-100); MONO # 0.5 x10^3/uL (0.0-1.1); MONO % 9 % (0-9); NEUT # 3.5 x10^3uL (1.8-7.7); NEUT % 67 % (31-73); PLATELET COUNT 127 x10^3/uL (140-400); RED BLOOD COUNT 3.68 x10^6/uL (3.50-5.40); RED CELL DISTRIBUTION WIDTH 14.9 % (11.5-14.5); WHITE BLOOD COUNT 5.1 x10^3/uL (4.0-11.0)
[2019-03-21] MEDS: HYDROcodone/APAP 10/325 1 TAB TABLET PO SCH ×3 (08:11→19:30)
[2019-03-21 08:13] LABS: ALBUMIN/GLOBULIN RATIO 0.9 (1.0-1.7); CREATININE 0.9 mg/dL (0.6-1.0); GFR 59.9; TOTAL BILIRUBIN 0.2 mg/dL (0.2-1.0); TOTAL PROTEIN 6.5 g/dL (6.4-8.2)
--- NOTE | 2019-03-21 10:55 | RAD ---
BILATERAL LOWER EXTREMITY ULTRASOUND WITH DOPPLER 03/21/2019 8:00 AM Clinical Information: Left lower extremity swelling. Comparison: None. Technique: Multiple grayscale, color Doppler, and spectral Doppler sonographic images of the lower extremity venous structures were obtained. Findings: The right common femoral, femoral, and popliteal veins exhibit normal compression, respiratory phasicity, and augmentation. No intraluminal thrombi are identified. Color Doppler flow is demonstrated in the right posterior tibial veins. Thrombus is identified within the left common femoral vein and proximal superficial femoral vein. Distal superficial femoral vein and popliteal vein are patent. Posterior tibial and peroneal veins are not well visualized. Bilateral calf edema limits evaluation. Impression: 1. DVT identified in the left common femoral vein and proximal left superficial femoral vein. 2. No evidence for right lower extremity DVT. Critical result: Findings discussed with Mica, the patient's nurse, at 03/21/2019 10:52 AM. FOR INTERNAL CODING PURPOSES RESULT CODE: (C) Electronically signed by: Michelle Luciano MD (03/21/2019 10:52 AM) [facility]
[2019-03-21] MEDS: APIXABAN 5 MG TABLET. PO SCH ×2 (11:25→19:31)
[2019-03-21] MEDS: METHYL SALICYLATE/MENTHOL TOPICAL OINTMENT 29GM TUBE. TP PRN (14:57)
[2019-03-21] MEDS: ACETAMINOPHEN 325 MG TABLET PO PRN (14:57)
[2019-03-21 16:21] VITALS: BP 108/66
[2019-03-21] MEDS: QUEtiapine 100 MG TABLET. PO SCH (19:29)
[2019-03-21] MEDS: MIRTAZAPINE 30 MG TABLET PO SCH (19:29)
--- NOTE | 2019-03-21 23:01 | PDOC ---
Exam Note: Alek Note: Please also refer to the separate dictated note~for this date of service dictated separately.~Patient seen individually. Discussed the patient with Nursing staff reviewed the chart.~Reviewed interim history and current functioning. Reviewed vital signs,~Labs/ Radiology~and current medications noted below. Continue current treatment with the changes noted in the dictated addendum note Assessment: Vital Signs/I&O: Vital Signs Date Time Temp Pulse Resp B/P (MAP) Pulse Ox O2 Delivery O2 Flow Rate FiO2 03/21/19 20:30 96 03/21/19 16:34 67 108/66 03/21/19 16:21 98.3 16 03/21/19 11:17 Room Air I & O 03/20/19 03/20/19 03/21/19 15:00 23:00 07:00 Intake Total 960 ml 240 ml 240 ml Balance 960 ml 240 ml 240 ml Labs: Laboratory Tests Test 03/21/19 07:19 White Blood Count 5.1 x10^3/uL (4.0-11.0) Red Blood Count 3.68 x10^6/uL (3.50-5.40) Hemoglobin 11.3 g/dL (12.0-15.5) L Hematocrit 34.0 % (36.0-47.0) L Mean Corpuscular Volume 92 fL (79-100) Mean Corpuscular Hemoglobin 31 pg (25-35) Mean Corpuscular Hemoglobin Concent 33 g/dL (31-37) Red Cell Distribution Width 14.9 % (11.5-14.5) H Platelet Count 127 x10^3/uL (140-400) L Neutrophils (%) (Auto) 67 % (31-73) Lymphocytes (%) (Auto) 20 % (24-48) L Monocytes (%) (Auto) 9 % (0-9) Eosinophils (%) (Auto) 3 % (0-3) Basophils (%) (Auto) 0 % (0-3) Neutrophils # (Auto) 3.5 x10^3uL (1.8-7.7) Lymphocytes # (Auto) 1.0 x10^3/uL (1.0-4.8) Monocytes # (Auto) 0.5 x10^3/uL (0.0-1.1) Eosinophils # (Auto) 0.1 x10^3/uL (0.0-0.7) Basophils # (Auto) 0.0 x10^3/uL (0.0-0.2) Sodium Level 142 mmol/L (136-145) Potassium Level 4.0 mmol/L (3.5-5.1) Chloride Level 106 mmol/L (98-107) Carbon Dioxide Level 27 mmol/L (21-32) Anion Gap 9 (6-14) Blood Urea Nitrogen 15 mg/dL (7-20) Creatinine 0.9 mg/dL (0.6-1.0) Estimated GFR (Cockcroft-Gault) 59.9 BUN/Creatinine Ratio 17 (6-20) Glucose Level 92 mg/dL (70-99) Calcium Level 9.0 mg/dL (8.5-10.1) Total Bilirubin 0.2 mg/dL (0.2-1.0) Aspartate Amino Transferase (AST) 11 U/L (15-37) L Alanine Aminotransferase (ALT) 12 U/L (14-59) L Alkaline Phosphatase 75 U/L (46-116) Total Protein 6.5 g/dL (6.4-8.2) Albumin 3.0 g/dL (3.4-5.0) L Albumin/Globulin Ratio 0.9 (1.0-1.7) L Current Medications: Meds: Current Medications Medications (Trade) Dose Ordered Sig/Lucio Route PRN Reason Start Time Stop Time Status Last Admin Dose Admin Sertraline HCl (Zoloft) 100 mg DAILY PO 03/21/19 09:00 03/21/19 07:37 Apixaban (Eliquis) 10 mg BID PO 03/21/19 11:00 03/28/19 08:00 03/21/19 19:31 I have reviewed the current psychotropics carefully including drug interactions. Risk benefit ratio favors no change other than as noted in my dictated progress note. Diagnosis: Problems: (1) Anxiety disorder (2) Dementia, vascular, with delusions (3) Dementia, vascular, with depression (4) Major depressive disorder, recurrent episode (5) Impulse control disorder (6) Mild cognitive impairment (7) Bipolar 1 disorder, mixed JUAN MILLER MD Mar 21, 2019 23:01
[2019-03-22] MEDS: ACETAMINOPHEN 325 MG TABLET PO PRN (04:01)
[2019-03-22 05:45] VITALS: BP 119/79
[2019-03-22] MEDS: DOCUSATE SODIUM 100 MG CAPSULE PO SCH ×2 (07:30→20:40)
[2019-03-22] MEDS: POLYETHYLENE GLYCOL 3350 17 GM PACKET. PO SCH (07:30)
[2019-03-22] MEDS: DICYCLOMINE HCL 20 MG TABLET PO SCH (07:31)
[2019-03-22] MEDS: ISOSORBIDE MONONITRATE ER 30 MG TAB.ER.24H PO SCH (07:31)
[2019-03-22] MEDS: FERROUS SULFATE 325 MG TABLET. PO SCH ×2 (07:32→17:09)
[2019-03-22] MEDS: QUEtiapine 50 MG TABLET. PO SCH ×2 (07:32→14:14)
[2019-03-22] MEDS: CARVEDILOL 12.5 MG TABLET PO SCH ×2 (07:32→17:09)
[2019-03-22] MEDS: LACTOBACILLUS RHAMNOSUS GG 1 CAPSULE. PO SCH ×2 (07:32→20:40)
[2019-03-22] MEDS: amLODIPine BESYLATE 2.5 MG TABLET PO SCH (07:34)
[2019-03-22] MEDS: SERTRALINE 100 MG TABLET. PO SCH (07:35)
[2019-03-22] MEDS: levETIRAcetam 500 MG TABLET PO SCH ×2 (07:35→20:40)
[2019-03-22] MEDS: APIXABAN 5 MG TABLET. PO SCH ×2 (07:35→20:40)
[2019-03-22] MEDS: HYDROcodone/APAP 10/325 1 TAB TABLET PO SCH ×2 (07:38→20:40)
[2019-03-22] MEDS: SPIRONOLACTONE 25 MG TABLET PO SCH (07:42)
[2019-03-22 17:21] VITALS: BP 137/75
[2019-03-22] MEDS: QUEtiapine 100 MG TABLET. PO SCH (20:40)
[2019-03-22] MEDS: MIRTAZAPINE 30 MG TABLET PO SCH (20:40)
--- NOTE | 2019-03-22 22:08 | PDOC ---
Exam Note: Alek Note: Please also refer to the separate dictated note~for this date of service dictated separately.~Patient seen individually. Discussed the patient with Nursing staff reviewed the chart.~Reviewed interim history and current functioning. Reviewed vital signs,~Labs/ Radiology~and current medications noted below. Continue current treatment with the changes noted in the dictated addendum note Assessment: Vital Signs/I&O: Vital Signs Date Time Temp Pulse Resp B/P (MAP) Pulse Ox O2 Delivery O2 Flow Rate FiO2 03/22/19 17:21 97.8 70 20 137/75 (95) 94 03/22/19 07:38 Room Air I & O 03/21/19 03/21/19 03/22/19 15:00 23:00 07:00 Intake Total 720 ml 240 ml 120 ml Balance 720 ml 240 ml 120 ml Current Medications: I have reviewed the current psychotropics carefully including drug interactions. Risk benefit ratio favors no change other than as noted in my dictated progress note. Diagnosis: Problems: (1) Anxiety disorder (2) Dementia, vascular, with delusions (3) Dementia, vascular, with depression (4) Major depressive disorder, recurrent episode (5) Impulse control disorder (6) Mild cognitive impairment (7) Bipolar 1 disorder, mixed JUAN MILLER MD Mar 22, 2019 22:08
--- NOTE | 2019-03-22 23:32 | PN ---
DATE: 03/20/2019 PSYCHIATRIC PROGRESS NOTE This late entry 03/20/2019 covers elements not covered in my initial note. SUBJECTIVE: I met with the patient in the evening of 03/20/2019. The patient slept 7-1/2 hours previous night. She is compliant with her medications. She complains of left leg swollen, states nursing staff accidentally kicked her. We will defer to Dr. Rouse. REVIEW OF SYSTEMS: Ambulation impaired, in wheelchair. No CV, , pulmonary, eye, ENT system symptoms on review. MENTAL STATUS EXAM: Oriented to herself and situation. Speech is coherent, somewhat anxious, tearful at times. Abstraction fair, computation impaired, language function intact, attention span short. Mood and affect remain somewhat withdrawn. LABORATORY DATA: Reviewed. IMPRESSION: Unchanged from initial note. PLAN: No change from initial note. MAN Mamadou MILLER MD DR: DELILAH/nathan JOB#: [id number] / [id number]
--- NOTE | 2019-03-22 23:42 | PN ---
DATE: 03/21/2019 PSYCHIATRIC PROGRESS NOTE This late entry 03/21/2019 covers elements not covered in my initial note. SUBJECTIVE: I met with the patient in the evening of 03/21/2019. The patient slept 5-3/4 hours previous night. Previous night, she was attention seeking and demanding per staff. Her daughter does not want her to call her due to the above. She does have a DVT, left lower extremity, started on Eliquis per Dr. Rouse. REVIEW OF SYSTEMS: Ambulation impaired, in wheelchair and left pedal edema. No CV, , pulmonary, eye system symptoms on review. She was tearful after supper, obsessive regarding her daughter. MENTAL STATUS EXAM: Oriented reasonably. Speech is coherent, less pressured. Abstraction fair, computation impaired, language function intact, attention span short. Mood and affect remain somewhat anxious, labile, but improved. LABORATORY DATA: Reviewed. IMPRESSION: Unchanged from initial note. PLAN: No change from initial note. MAN Mamadou MILLER MD DR: DELILAH/nathan JOB#: [id number] / [id number]
[2019-03-23 06:00] VITALS: BP 129/79
[2019-03-23] MEDS: CARVEDILOL 12.5 MG TABLET PO SCH ×2 (08:33→17:26)
[2019-03-23] MEDS: SPIRONOLACTONE 25 MG TABLET PO SCH (08:33)
[2019-03-23] MEDS: FERROUS SULFATE 325 MG TABLET. PO SCH ×2 (08:33→17:26)
[2019-03-23] MEDS: ISOSORBIDE MONONITRATE ER 30 MG TAB.ER.24H PO SCH (08:34)
[2019-03-23] MEDS: APIXABAN 5 MG TABLET. PO SCH ×2 (08:34→19:12)
[2019-03-23] MEDS: LACTOBACILLUS RHAMNOSUS GG 1 CAPSULE. PO SCH ×2 (08:34→19:11)
[2019-03-23] MEDS: DOCUSATE SODIUM 100 MG CAPSULE PO SCH ×2 (08:34→19:11)
[2019-03-23] MEDS: DICYCLOMINE HCL 20 MG TABLET PO SCH (08:34)
[2019-03-23] MEDS: POLYETHYLENE GLYCOL 3350 17 GM PACKET. PO SCH (08:35)
[2019-03-23] MEDS: levETIRAcetam 500 MG TABLET PO SCH ×2 (08:35→19:11)
[2019-03-23] MEDS: SERTRALINE 100 MG TABLET. PO SCH (08:35)
[2019-03-23] MEDS: amLODIPine BESYLATE 2.5 MG TABLET PO SCH (08:35)
[2019-03-23] MEDS: QUEtiapine 50 MG TABLET. PO SCH ×2 (08:35→13:02)
[2019-03-23] MEDS: HYDROcodone/APAP 10/325 1 TAB TABLET PO SCH ×2 (08:37→19:12)
[2019-03-23 16:00] VITALS: BP 117/68
[2019-03-23] MEDS: MIRTAZAPINE 30 MG TABLET PO SCH (19:10)
[2019-03-23] MEDS: QUEtiapine 100 MG TABLET. PO SCH (19:13)
--- NOTE | 2019-03-23 20:20 | PN ---
DATE: 03/22/2019 PSYCHIATRIC PROGRESS NOTE. This late entry of 03/22/2019 covers the elements not covered in my initial note. SUBJECTIVE: I met with the patient in the evening of 03/22/2019. The patient slept 6-1/2 hours previous night. Per nursing report, she has been somewhat attention seeking, demanding to call the hospital, angry that her daughter does not permit her to call her . REVIEW OF SYSTEMS: Ambulation impaired, in wheelchair. No CV, , pulmonary, eye system symptoms on review. MENTAL STATUS EXAM: The patient is reasonably oriented. Speech is coherent, a little pressured at times. Abstraction fair, computation impaired, language function intact. Mood and affect remains somewhat anxious, labile, but improved. LABORATORY DATA: Reviewed. IMPRESSION: Unchanged from initial note including deep vein thrombosis for which she is on Eliquis. PLAN: Continue current psychotropics, Zoloft, Seroquel, and Remeron for now. Placement is being secured actively per Social Service staff. JUAN MILLER MD DR: DELILAH/nathan JOB#: [id number] / [id number]
--- NOTE | 2019-03-23 22:28 | PDOC ---
Exam Note: Alek Note: Please also refer to the separate dictated note~for this date of service dictated separately.~Patient seen individually. Discussed the patient with Nursing staff reviewed the chart.~Reviewed interim history and current functioning. Reviewed vital signs,~Labs/ Radiology~and current medications noted below. Continue current treatment with the changes noted in the dictated addendum note Assessment: Vital Signs/I&O: Vital Signs Date Time Temp Pulse Resp B/P (MAP) Pulse Ox O2 Delivery O2 Flow Rate FiO2 03/23/19 20:12 18 94 03/23/19 17:26 67 117/68 03/23/19 16:00 97.8 03/22/19 07:38 Room Air I & O 03/22/19 03/22/19 03/23/19 14:59 22:59 06:59 Intake Total 480 ml 340 ml Balance 480 ml 340 ml Current Medications: I have reviewed the current psychotropics carefully including drug interactions. Risk benefit ratio favors no change other than as noted in my dictated progress note. Diagnosis: Problems: (1) Anxiety disorder (2) Dementia, vascular, with delusions (3) Dementia, vascular, with depression (4) Major depressive disorder, recurrent episode (5) Impulse control disorder (6) Mild cognitive impairment (7) Bipolar 1 disorder, mixed JUAN MILLER MD Mar 23, 2019 22:28
[2019-03-24 04:17] VITALS: BP 117/77
[2019-03-24] MEDS: FERROUS SULFATE 325 MG TABLET. PO SCH ×2 (08:37→17:12)
[2019-03-24] MEDS: CARVEDILOL 12.5 MG TABLET PO SCH ×2 (08:37→17:12)
[2019-03-24] MEDS: DOCUSATE SODIUM 100 MG CAPSULE PO SCH ×2 (08:38→20:07)
[2019-03-24] MEDS: LACTOBACILLUS RHAMNOSUS GG 1 CAPSULE. PO SCH ×2 (08:38→20:07)
[2019-03-24] MEDS: DICYCLOMINE HCL 20 MG TABLET PO SCH (08:38)
[2019-03-24] MEDS: SPIRONOLACTONE 25 MG TABLET PO SCH (08:38)
[2019-03-24] MEDS: APIXABAN 5 MG TABLET. PO SCH ×2 (08:39→20:07)
[2019-03-24] MEDS: ISOSORBIDE MONONITRATE ER 30 MG TAB.ER.24H PO SCH (08:40)
[2019-03-24] MEDS: QUEtiapine 50 MG TABLET. PO SCH ×2 (08:40→14:00)
[2019-03-24] MEDS: levETIRAcetam 500 MG TABLET PO SCH ×2 (08:40→20:07)
[2019-03-24] MEDS: amLODIPine BESYLATE 2.5 MG TABLET PO SCH (08:40)
[2019-03-24] MEDS: SERTRALINE 25 MG TABLET. PO SCH (08:47)
[2019-03-24] MEDS: SERTRALINE 100 MG TABLET. PO SCH (08:48)
[2019-03-24] MEDS: POLYETHYLENE GLYCOL 3350 17 GM PACKET. PO SCH (08:48)
[2019-03-24] MEDS: HYDROcodone/APAP 10/325 1 TAB TABLET PO SCH ×2 (08:48→20:10)
[2019-03-24] MEDS: ACETAMINOPHEN 325 MG TABLET PO PRN (14:00)
[2019-03-24 15:48] VITALS: BP 103/64
[2019-03-24] MEDS: MIRTAZAPINE 30 MG TABLET PO SCH (20:07)
[2019-03-24] MEDS: QUEtiapine 100 MG TABLET. PO SCH (20:07)
--- NOTE | 2019-03-24 22:26 | PDOC ---
Exam Note: Alek Note: Please also refer to the separate dictated note~for this date of service dictated separately.~Patient seen individually. Discussed the patient with Nursing staff reviewed the chart.~Reviewed interim history and current functioning. Reviewed vital signs,~Labs/ Radiology~and current medications noted below. Continue current treatment with the changes noted in the dictated addendum note Assessment: Vital Signs/I&O: Vital Signs Date Time Temp Pulse Resp B/P (MAP) Pulse Ox O2 Delivery O2 Flow Rate FiO2 03/24/19 17:12 69 103/64 03/24/19 15:48 98.3 16 92 03/24/19 11:48 Room Air I & O 03/23/19 03/23/19 03/24/19 15:00 23:00 07:00 Intake Total 600 ml 360 ml Balance 600 ml 360 ml Current Medications: Meds: Current Medications Medications (Trade) Dose Ordered Sig/Lucio Route PRN Reason Start Time Stop Time Status Last Admin Dose Admin Sertraline HCl (Zoloft) 100 mg DAILY PO 03/24/19 09:00 03/24/19 08:48 Sertraline HCl (Zoloft) 25 mg DAILY PO 03/24/19 09:00 03/24/19 08:48 I have reviewed the current psychotropics carefully including drug interactions. Risk benefit ratio favors no change other than as noted in my dictated progress note. Diagnosis: Problems: (1) Anxiety disorder (2) Dementia, vascular, with delusions (3) Dementia, vascular, with depression (4) Major depressive disorder, recurrent episode (5) Impulse control disorder (6) Mild cognitive impairment (7) Bipolar 1 disorder, mixed JUAN MILLER MD Mar 24, 2019 22:26
--- NOTE | 2019-03-24 22:34 | PN ---
DATE: 03/23/2019 PSYCHIATRIC PROGRESS NOTE This late entry, 03/23/2019, covers the elements not covered in my initial note. SUBJECTIVE: I met with the patient in the evening of 03/23. The patient slept 7-1/4 hours previous night. The patient remains extremely angry at her daughter for restricting contact with her . As I addressed this with her individually at length, she was paranoid that the daughter had sold some antiques from her home and not given the money to the patient and her . She remains somewhat depressed, but not suicidal. REVIEW OF SYSTEMS: Ambulation impaired, in wheelchair. No CV, , pulmonary, eye system symptoms on review. MENTAL STATUS EXAM: Oriented to herself and situation. Speech has some latency, coherent. Abstraction fair, computation impaired, language function intact, attention span short. Mood and affect somewhat withdrawn. LABORATORY DATA: Reviewed. IMPRESSION: Unchanged from initial note. PLAN: Increase Zoloft from 100 mg a day to 125 mg a day. Rest unchanged. MAN Mamadou MILLER MD DR: DELILAH/nathan JOB#: [id number] / [id number]
[2019-03-25 05:40] VITALS: BP 123/78
[2019-03-25] MEDS: FERROUS SULFATE 325 MG TABLET. PO SCH ×2 (08:33→16:42)
[2019-03-25] MEDS: CARVEDILOL 12.5 MG TABLET PO SCH ×2 (08:33→16:42)
[2019-03-25] MEDS: SPIRONOLACTONE 25 MG TABLET PO SCH (08:34)
[2019-03-25] MEDS: DOCUSATE SODIUM 100 MG CAPSULE PO SCH ×2 (08:34→19:13)
[2019-03-25] MEDS: LACTOBACILLUS RHAMNOSUS GG 1 CAPSULE. PO SCH ×2 (08:34→19:14)
[2019-03-25] MEDS: DICYCLOMINE HCL 20 MG TABLET PO SCH (08:34)
[2019-03-25] MEDS: levETIRAcetam 500 MG TABLET PO SCH ×2 (08:35→19:13)
[2019-03-25] MEDS: APIXABAN 5 MG TABLET. PO SCH ×2 (08:35→19:14)
[2019-03-25] MEDS: POLYETHYLENE GLYCOL 3350 17 GM PACKET. PO SCH (08:36)
[2019-03-25] MEDS: HYDROcodone/APAP 10/325 1 TAB TABLET PO SCH ×2 (08:36→19:14)
[2019-03-25] MEDS: SERTRALINE 100 MG TABLET. PO SCH (08:37)
[2019-03-25] MEDS: amLODIPine BESYLATE 2.5 MG TABLET PO SCH (08:37)
[2019-03-25] MEDS: QUEtiapine 50 MG TABLET. PO SCH ×2 (08:37→13:04)
[2019-03-25] MEDS: SERTRALINE 25 MG TABLET. PO SCH (08:37)
[2019-03-25] MEDS: ISOSORBIDE MONONITRATE ER 30 MG TAB.ER.24H PO SCH (08:46)
[2019-03-25 15:39] VITALS: BP 112/69
[2019-03-25] MEDS: MIRTAZAPINE 30 MG TABLET PO SCH (19:13)
[2019-03-25] MEDS: QUEtiapine 100 MG TABLET. PO SCH (19:13)
--- NOTE | 2019-03-25 20:52 | PDOC ---
Exam Note: Alek Note: Please also refer to the separate dictated note~for this date of service dictated separately.~Patient seen individually. Discussed the patient with Nursing staff reviewed the chart.~Reviewed interim history and current functioning. Reviewed vital signs,~Labs/ Radiology~and current medications noted below. Continue current treatment with the changes noted in the dictated addendum note Assessment: Vital Signs/I&O: Vital Signs Date Time Temp Pulse Resp B/P (MAP) Pulse Ox O2 Delivery O2 Flow Rate FiO2 03/25/19 20:25 18 94 03/25/19 16:45 66 112/69 03/25/19 15:39 98.4 03/25/19 08:45 Room Air I & O 03/24/19 03/24/19 03/25/19 15:00 23:00 07:00 Intake Total 360 ml 360 ml Balance 360 ml 360 ml Current Medications: I have reviewed the current psychotropics carefully including drug interactions. Risk benefit ratio favors no change other than as noted in my dictated progress note. Diagnosis: Problems: (1) Anxiety disorder (2) Dementia, vascular, with delusions (3) Dementia, vascular, with depression (4) Major depressive disorder, recurrent episode (5) Impulse control disorder (6) Mild cognitive impairment (7) Bipolar 1 disorder, mixed JUAN MILLER MD Mar 25, 2019 20:52
--- NOTE | 2019-03-25 23:04 | PN ---
DATE: 03/25/2019 PSYCHIATRIC PROGRESS NOTE This late entry 03/24/2019 covers elements not covered in my initial note. SUBJECTIVE: I met with the patient in the evening of 03/24/2019. The patient slept 7-3/4 hours previous night. She was obsessed about calling her for lunch, gets irritable that her daughter restricts this. REVIEW OF SYSTEMS: Ambulation impaired, in wheelchair. No CV, , pulmonary, eye system symptoms on review. MENTAL STATUS EXAM: Reasonably oriented. Speech has some latency, coherent, often responses monosyllabic. Abstraction fair, computation impaired, language function intact, attention span short. Mood and affect somewhat withdrawn. LABORATORY DATA: Reviewed. IMPRESSION: Unchanged from initial note. PLAN: No change from initial note. Zoloft was increased recently. We may need to increase further gradually. MAN Mamadou MILLER MD DR: DELILAH/nathan JOB#: [id number] / [id number]
[2019-03-26 06:09] VITALS: BP 105/64
[2019-03-26] MEDS: levETIRAcetam 500 MG TABLET PO SCH ×2 (08:18→19:20)
[2019-03-26] MEDS: FERROUS SULFATE 325 MG TABLET. PO SCH ×2 (08:18→17:19)
[2019-03-26] MEDS: SERTRALINE 100 MG TABLET. PO SCH (08:18)
[2019-03-26] MEDS: QUEtiapine 50 MG TABLET. PO SCH ×2 (08:18→17:19)
[2019-03-26] MEDS: SPIRONOLACTONE 25 MG TABLET PO SCH (08:18)
[2019-03-26] MEDS: APIXABAN 5 MG TABLET. PO SCH ×2 (08:18→19:20)
[2019-03-26] MEDS: DOCUSATE SODIUM 100 MG CAPSULE PO SCH ×2 (08:18→19:20)
[2019-03-26] MEDS: amLODIPine BESYLATE 2.5 MG TABLET PO SCH (08:19)
[2019-03-26] MEDS: CARVEDILOL 12.5 MG TABLET PO SCH ×2 (08:20→17:20)
[2019-03-26] MEDS: LACTOBACILLUS RHAMNOSUS GG 1 CAPSULE. PO SCH ×2 (08:20→19:20)
[2019-03-26] MEDS: DICYCLOMINE HCL 20 MG TABLET PO SCH (08:20)
[2019-03-26] MEDS: ISOSORBIDE MONONITRATE ER 30 MG TAB.ER.24H PO SCH (08:20)
[2019-03-26] MEDS: SERTRALINE 25 MG TABLET. PO SCH (08:20)
[2019-03-26] MEDS: POLYETHYLENE GLYCOL 3350 17 GM PACKET. PO SCH (08:21)
[2019-03-26] MEDS: HYDROcodone/APAP 10/325 1 TAB TABLET PO SCH ×2 (08:22→19:22)
[2019-03-26 16:07] VITALS: BP 139/82
[2019-03-26] MEDS: MIRTAZAPINE 30 MG TABLET PO SCH (19:19)
[2019-03-26] MEDS: QUEtiapine 100 MG TABLET. PO SCH (19:20)
--- NOTE | 2019-03-26 22:22 | PDOC ---
Exam Note: Alek Note: Please also refer to the separate dictated note~for this date of service dictated separately.~Patient seen individually. Discussed the patient with Nursing staff reviewed the chart.~Reviewed interim history and current functioning. Reviewed vital signs,~Labs/ Radiology~and current medications noted below. Continue current treatment with the changes noted in the dictated addendum note Assessment: Vital Signs/I&O: Vital Signs Date Time Temp Pulse Resp B/P (MAP) Pulse Ox O2 Delivery O2 Flow Rate FiO2 03/26/19 19:23 18 Room Air 03/26/19 17:20 66 139/82 03/26/19 16:07 97.3 94 I & O 03/25/19 03/25/19 03/26/19 15:00 23:00 07:00 Intake Total 360 ml 240 ml 240 ml Balance 360 ml 240 ml 240 ml Current Medications: I have reviewed the current psychotropics carefully including drug interactions. Risk benefit ratio favors no change other than as noted in my dictated progress note. Diagnosis: Problems: (1) Anxiety disorder (2) Dementia, vascular, with delusions (3) Dementia, vascular, with depression (4) Major depressive disorder, recurrent episode (5) Impulse control disorder (6) Mild cognitive impairment (7) Bipolar 1 disorder, mixed JUAN MILLER MD Mar 26, 2019 22:22
[2019-03-27] MEDS: ACETAMINOPHEN 325 MG TABLET PO PRN (05:13)
[2019-03-27 05:55] VITALS: BP 124/64
[2019-03-27] MEDS: POLYETHYLENE GLYCOL 3350 17 GM PACKET. PO SCH (07:33)
[2019-03-27] MEDS: SERTRALINE 25 MG TABLET. PO SCH (07:33)
[2019-03-27] MEDS: SERTRALINE 100 MG TABLET. PO SCH (07:33)
[2019-03-27] MEDS: FERROUS SULFATE 325 MG TABLET. PO SCH ×2 (07:34→17:29)
[2019-03-27] MEDS: QUEtiapine 50 MG TABLET. PO SCH ×2 (07:34→14:00)
[2019-03-27] MEDS: ISOSORBIDE MONONITRATE ER 30 MG TAB.ER.24H PO SCH (07:34)
[2019-03-27] MEDS: SPIRONOLACTONE 25 MG TABLET PO SCH (07:34)
[2019-03-27] MEDS: APIXABAN 5 MG TABLET. PO SCH ×2 (07:35→20:15)
[2019-03-27] MEDS: levETIRAcetam 500 MG TABLET PO SCH ×2 (07:35→20:15)
[2019-03-27] MEDS: DICYCLOMINE HCL 20 MG TABLET PO SCH (07:36)
[2019-03-27] MEDS: LACTOBACILLUS RHAMNOSUS GG 1 CAPSULE. PO SCH ×2 (07:36→20:14)
[2019-03-27] MEDS: DOCUSATE SODIUM 100 MG CAPSULE PO SCH ×2 (07:36→20:16)
[2019-03-27] MEDS: CARVEDILOL 12.5 MG TABLET PO SCH ×2 (07:36→17:28)
[2019-03-27] MEDS: amLODIPine BESYLATE 2.5 MG TABLET PO SCH (07:36)
[2019-03-27] MEDS: HYDROcodone/APAP 10/325 1 TAB TABLET PO SCH ×2 (07:37→20:15)
[2019-03-27 15:55] VITALS: BP 140/82
[2019-03-27] MEDS: MIRTAZAPINE 30 MG TABLET PO SCH (20:15)
[2019-03-27] MEDS: QUEtiapine 100 MG TABLET. PO SCH (20:15)
--- NOTE | 2019-03-27 21:14 | PN ---
DATE: 03/25/2019 PSYCHIATRIC PROGRESS NOTE This late entry 03/25/2019 covers elements not covered in my initial note. SUBJECTIVE: I met with the patient in the evening. The patient slept 7 hours previous night. She did well at night and during the day. Her and daughter visited her and she was pleased with this. She still resents her daughter restricting contact with her , but that is primarily at the 's request since he gets overwhelmed with her repeated requests. REVIEW OF SYSTEMS: Ambulation impaired, in wheelchair. No CV, , pulmonary, eye system symptoms on review. MENTAL STATUS EXAM: The patient is reasonably oriented. Speech is coherent, abstraction fair, computation impaired, language function intact, attention span short. Mood and affect still somewhat anxious, dysphoric at times, but improved. No active suicidal ideation. LABORATORY DATA: Reviewed. IMPRESSION: Unchanged from initial note. PLAN: No change from initial note. JUAN MILLER MD DR: DELILAH/nathan JOB#: [id number] / [id number]
--- NOTE | 2019-03-27 22:10 | PDOC ---
Exam Note: Alek Note: Please also refer to the separate dictated note~for this date of service dictated separately.~Patient seen individually. Discussed the patient with Nursing staff reviewed the chart.~Reviewed interim history and current functioning. Reviewed vital signs,~Labs/ Radiology~and current medications noted below. Continue current treatment with the changes noted in the dictated addendum note Assessment: Vital Signs/I&O: Vital Signs Date Time Temp Pulse Resp B/P (MAP) Pulse Ox O2 Delivery O2 Flow Rate FiO2 03/27/19 20:17 18 Room Air 03/27/19 17:29 80 140/82 03/27/19 15:55 97.6 97 I & O 03/26/19 03/26/19 03/27/19 14:59 22:59 06:59 Intake Total 480 ml 360 ml Balance 480 ml 360 ml Current Medications: I have reviewed the current psychotropics carefully including drug interactions. Risk benefit ratio favors no change other than as noted in my dictated progress note. Diagnosis: Problems: (1) Anxiety disorder (2) Dementia, vascular, with delusions (3) Dementia, vascular, with depression (4) Major depressive disorder, recurrent episode (5) Impulse control disorder (6) Mild cognitive impairment (7) Bipolar 1 disorder, mixed JUAN MLILER MD Mar 27, 2019 22:10
--- NOTE | 2019-03-27 23:11 | PN ---
DATE: 03/26/2019 PSYCHIATRIC PROGRESS NOTE This late entry 03/26/2019 covers elements not covered in my initial note. SUBJECTIVE: I met with the patient in the evening of 03/26/2019 and staffed at a treatment team meeting with the entire team in the morning. Appetite 50-75%, sleeping 7 hours. She gets agitated because the is not able to visit her due to the daughter restrained on the visiting, but in fact this is the 's choice. She is tolerating the increased Zoloft. REVIEW OF SYSTEMS: Ambulation impaired, in wheelchair. No CV, , pulmonary, eye system symptoms on review. MENTAL STATUS EXAM: Oriented reasonably. Speech is coherent. She is anxious, repetitive, abstraction fair, computation impaired, language function intact, attention span short. Mood and affect still depressed and anxious, but improved. No suicidal ideation. LABORATORY DATA: Reviewed. IMPRESSION: Unchanged from initial note. PLAN: No change from initial note. Social service staff is actively trying to find a placement. Apparently, 19 referrals have been sent with no positive response back. JUAN MILLER MD DR: DELILAH/nathan JOB#: [id number] / [id number]
[2019-03-28 06:23] VITALS: BP 120/75
[2019-03-28 06:48] LABS: BASO % 1 % (0-3); EOS # 0.1 x10^3/uL (0.0-0.7); EOS % 3 % (0-3); HEMATOCRIT 32.9 % (36.0-47.0); LYMPH # 0.9 x10^3/uL (1.0-4.8); LYMPH % 20 % (24-48); MEAN CORPUSCULAR HEMOGLOBIN 31 pg (25-35); MEAN CORPUSCULAR HGB CONC 34 g/dL (31-37); MEAN CORPUSCULAR VOLUME 91 fL (79-100); MONO # 0.4 x10^3/uL (0.0-1.1); MONO % 8 % (0-9); NEUT # 3.1 x10^3uL (1.8-7.7); NEUT % 69 % (31-73); PLATELET COUNT 131 x10^3/uL (140-400); RED BLOOD COUNT 3.61 x10^6/uL (3.50-5.40); RED CELL DISTRIBUTION WIDTH 14.6 % (11.5-14.5); WHITE BLOOD COUNT 4.5 x10^3/uL (4.0-11.0)
[2019-03-28 07:13] LABS: ALBUMIN/GLOBULIN RATIO 0.9 (1.0-1.7); CALCIUM 8.9 mg/dL (8.5-10.1); CREATININE 0.8 mg/dL (0.6-1.0); GFR 68.7; POTASSIUM 3.9 mmol/L (3.5-5.1); TOTAL BILIRUBIN 0.2 mg/dL (0.2-1.0); TOTAL PROTEIN 6.5 g/dL (6.4-8.2)
[2019-03-28] MEDS: ISOSORBIDE MONONITRATE ER 30 MG TAB.ER.24H PO SCH (08:25)
[2019-03-28] MEDS: DOCUSATE SODIUM 100 MG CAPSULE PO SCH ×2 (08:25→19:39)
[2019-03-28] MEDS: SERTRALINE 25 MG TABLET. PO SCH (08:25)
[2019-03-28] MEDS: LACTOBACILLUS RHAMNOSUS GG 1 CAPSULE. PO SCH ×2 (08:26→19:39)
[2019-03-28] MEDS: levETIRAcetam 500 MG TABLET PO SCH ×2 (08:26→19:39)
[2019-03-28] MEDS: APIXABAN 5 MG TABLET. PO SCH ×2 (08:26→19:38)
[2019-03-28] MEDS: FERROUS SULFATE 325 MG TABLET. PO SCH ×2 (08:26→17:02)
[2019-03-28] MEDS: CARVEDILOL 12.5 MG TABLET PO SCH ×2 (08:26→17:02)
[2019-03-28] MEDS: amLODIPine BESYLATE 2.5 MG TABLET PO SCH (08:26)
[2019-03-28] MEDS: SERTRALINE 100 MG TABLET. PO SCH (08:28)
[2019-03-28] MEDS: SPIRONOLACTONE 25 MG TABLET PO SCH (08:28)
[2019-03-28] MEDS: DICYCLOMINE HCL 20 MG TABLET PO SCH (08:28)
[2019-03-28] MEDS: QUEtiapine 50 MG TABLET. PO SCH ×2 (08:28→13:19)
[2019-03-28] MEDS: POLYETHYLENE GLYCOL 3350 17 GM PACKET. PO SCH (08:31)
[2019-03-28] MEDS: CHOLECALCIFEROL (VITAMIN D3) 50,000 UNIT CAPSULE PO SCH (08:34)
[2019-03-28] MEDS: HYDROcodone/APAP 10/325 1 TAB TABLET PO SCH ×2 (08:34→19:39)
[2019-03-28] MEDS ORDERED: FUROSEMIDE 40 MG TABLET PO ONE (13:00)
[2019-03-28] MEDS: METHYL SALICYLATE/MENTHOL TOPICAL OINTMENT 29GM TUBE. TP PRN (14:57)
[2019-03-28 16:28] VITALS: BP 100/61
[2019-03-28] MEDS: MIRTAZAPINE 30 MG TABLET PO SCH (19:38)
[2019-03-28] MEDS: QUEtiapine 100 MG TABLET. PO SCH (19:39)
--- NOTE | 2019-03-28 23:06 | PDOC ---
Exam Note: Alek Note: Please also refer to the separate dictated note~for this date of service dictated separately.~Patient seen individually. Discussed the patient with Nursing staff reviewed the chart.~Reviewed interim history and current functioning. Reviewed vital signs,~Labs/ Radiology~and current medications noted below. Continue current treatment with the changes noted in the dictated addendum note Assessment: Vital Signs/I&O: Vital Signs Date Time Temp Pulse Resp B/P (MAP) Pulse Ox O2 Delivery O2 Flow Rate FiO2 03/28/19 19:39 18 Room Air 03/28/19 17:02 72 100/61 03/28/19 16:28 97.6 93 I & O 03/27/19 03/27/19 03/28/19 15:00 23:00 07:00 Intake Total 960 ml 360 ml Balance 960 ml 360 ml Labs: Laboratory Tests Test 03/28/19 06:35 White Blood Count 4.5 x10^3/uL (4.0-11.0) Red Blood Count 3.61 x10^6/uL (3.50-5.40) Hemoglobin 11.0 g/dL (12.0-15.5) L Hematocrit 32.9 % (36.0-47.0) L Mean Corpuscular Volume 91 fL (79-100) Mean Corpuscular Hemoglobin 31 pg (25-35) Mean Corpuscular Hemoglobin Concent 34 g/dL (31-37) Red Cell Distribution Width 14.6 % (11.5-14.5) H Platelet Count 131 x10^3/uL (140-400) L Neutrophils (%) (Auto) 69 % (31-73) Lymphocytes (%) (Auto) 20 % (24-48) L Monocytes (%) (Auto) 8 % (0-9) Eosinophils (%) (Auto) 3 % (0-3) Basophils (%) (Auto) 1 % (0-3) Neutrophils # (Auto) 3.1 x10^3uL (1.8-7.7) Lymphocytes # (Auto) 0.9 x10^3/uL (1.0-4.8) L Monocytes # (Auto) 0.4 x10^3/uL (0.0-1.1) Eosinophils # (Auto) 0.1 x10^3/uL (0.0-0.7) Basophils # (Auto) 0.0 x10^3/uL (0.0-0.2) Sodium Level 140 mmol/L (136-145) Potassium Level 3.9 mmol/L (3.5-5.1) Chloride Level 106 mmol/L (98-107) Carbon Dioxide Level 27 mmol/L (21-32) Anion Gap 7 (6-14) Blood Urea Nitrogen 14 mg/dL (7-20) Creatinine 0.8 mg/dL (0.6-1.0) Estimated GFR (Cockcroft-Gault) 68.7 BUN/Creatinine Ratio 18 (6-20) Glucose Level 91 mg/dL (70-99) Calcium Level 8.9 mg/dL (8.5-10.1) Total Bilirubin 0.2 mg/dL (0.2-1.0) Aspartate Amino Transferase (AST) 11 U/L (15-37) L Alanine Aminotransferase (ALT) 11 U/L (14-59) L Alkaline Phosphatase 79 U/L (46-116) Total Protein 6.5 g/dL (6.4-8.2) Albumin 3.0 g/dL (3.4-5.0) L Albumin/Globulin Ratio 0.9 (1.0-1.7) L Current Medications: Meds: Current Medications Medications (Trade) Dose Ordered Sig/Lucio Route PRN Reason Start Time Stop Time Status Last Admin Dose Admin Apixaban (Eliquis) 5 mg BID PO 03/28/19 09:00 03/28/19 19:39 Furosemide (Lasix) 40 mg 1X ONCE PO 03/28/19 13:00 03/28/19 13:01 DC 03/28/19 13:17 I have reviewed the current psychotropics carefully including drug interactions. Risk benefit ratio favors no change other than as noted in my dictated progress note. Diagnosis: Problems: (1) Anxiety disorder (2) Dementia, vascular, with delusions (3) Dementia, vascular, with depression (4) Major depressive disorder, recurrent episode (5) Impulse control disorder (6) Mild cognitive impairment (7) Bipolar 1 disorder, mixed JUAN MILLER MD Mar 28, 2019 23:06
[2019-03-29 05:53] VITALS: BP 142/77
[2019-03-29] MEDS: APIXABAN 5 MG TABLET. PO SCH ×2 (07:31→19:41)
[2019-03-29] MEDS: POLYETHYLENE GLYCOL 3350 17 GM PACKET. PO SCH (07:31)
[2019-03-29] MEDS: ISOSORBIDE MONONITRATE ER 30 MG TAB.ER.24H PO SCH (07:31)
[2019-03-29] MEDS: amLODIPine BESYLATE 2.5 MG TABLET PO SCH (07:31)
[2019-03-29] MEDS: LACTOBACILLUS RHAMNOSUS GG 1 CAPSULE. PO SCH ×2 (07:31→19:40)
[2019-03-29] MEDS: FERROUS SULFATE 325 MG TABLET. PO SCH ×2 (07:32→17:13)
[2019-03-29] MEDS: DICYCLOMINE HCL 20 MG TABLET PO SCH (07:32)
[2019-03-29] MEDS: DOCUSATE SODIUM 100 MG CAPSULE PO SCH ×2 (07:32→19:40)
[2019-03-29] MEDS: levETIRAcetam 500 MG TABLET PO SCH ×2 (07:32→19:41)
[2019-03-29] MEDS: SPIRONOLACTONE 25 MG TABLET PO SCH (07:32)
[2019-03-29] MEDS: QUEtiapine 50 MG TABLET. PO SCH ×2 (07:32→14:42)
[2019-03-29] MEDS: SERTRALINE 100 MG TABLET. PO SCH (07:32)
[2019-03-29] MEDS: SERTRALINE 25 MG TABLET. PO SCH (07:32)
[2019-03-29] MEDS: CARVEDILOL 12.5 MG TABLET PO SCH ×2 (07:33→17:13)
[2019-03-29] MEDS: HYDROcodone/APAP 10/325 1 TAB TABLET PO SCH ×2 (07:38→19:41)
[2019-03-29] MEDS ORDERED: HEPARIN PF 500 UNIT/5 ML DISP.SYRIN. IV ONE (10:00)
[2019-03-29] MEDS ORDERED: LIDOCAINE 2% TOPICAL JELLY 5GM TUBE. TP ONE (10:00)
[2019-03-29] MEDS: METHYL SALICYLATE/MENTHOL TOPICAL OINTMENT 29GM TUBE. TP PRN (10:49)
[2019-03-29 16:22] VITALS: BP 158/92
[2019-03-29] MEDS: QUEtiapine 100 MG TABLET. PO SCH (19:41)
[2019-03-29] MEDS: MIRTAZAPINE 30 MG TABLET PO SCH (19:41)
--- NOTE | 2019-03-29 22:17 | PN ---
DATE: 03/27/2019 PSYCHIATRIC PROGRESS NOTE This late entry, 03/27/2019, covers elements not covered in my initial note. SUBJECTIVE: I met with the patient in the evening of 03/27/2019. The patient slept 8 hours previous night. She has been pleasant, tearful, reportedly with her over the telephone and quite upset that her daughter is restricting a telephone contact with her . I addressed this with her. REVIEW OF SYSTEMS: Ambulation impaired, in wheelchair. No CV, , pulmonary, eye system symptoms on review. MENTAL STATUS EXAM: Oriented reasonably. Speech is coherent, abstraction fair, computation impaired, language function intact, attention span short. Mood and affect is improved. No active suicidal ideation. LABORATORY DATA: Reviewed. IMPRESSION: Unchanged from initial note. PLAN: No change from initial note. Social service staff is actively seeking placement for her. MAN Mamadou MILLER MD DR: DELILAH/nathan JOB#: [id number] / [id number]
--- NOTE | 2019-03-29 22:25 | PDOC ---
Exam Note: Alek Note: Please also refer to the separate dictated note~for this date of service dictated separately.~Patient seen individually. Discussed the patient with Nursing staff reviewed the chart.~Reviewed interim history and current functioning. Reviewed vital signs,~Labs/ Radiology~and current medications noted below. Continue current treatment with the changes noted in the dictated addendum note Assessment: Vital Signs/I&O: Vital Signs Date Time Temp Pulse Resp B/P (MAP) Pulse Ox O2 Delivery O2 Flow Rate FiO2 03/29/19 21:23 95 03/29/19 17:13 72 158/92 03/29/19 16:22 97.8 18 03/29/19 10:49 Room Air I & O 03/28/19 03/28/19 03/29/19 15:00 23:00 07:00 Intake Total 480 ml 240 ml Balance 480 ml 240 ml Current Medications: Meds: Current Medications Medications (Trade) Dose Ordered Sig/Lucio Route PRN Reason Start Time Stop Time Status Last Admin Dose Admin Lidocaine HCl (Xylocaine 2% Topical 5gm Tube) 1 abel 1X ONCE TP 03/29/19 10:00 03/29/19 10:01 DC 03/29/19 11:09 Heparin Sodium (Porcine) (Hep Lock Adult) 500 unit 1X ONCE IV 03/29/19 10:00 03/29/19 10:01 DC 03/29/19 11:09 I have reviewed the current psychotropics carefully including drug interactions. Risk benefit ratio favors no change other than as noted in my dictated progress note. Diagnosis: Problems: (1) Anxiety disorder (2) Dementia, vascular, with delusions (3) Dementia, vascular, with depression (4) Major depressive disorder, recurrent episode (5) Impulse control disorder (6) Mild cognitive impairment (7) Bipolar 1 disorder, mixed JUAN MILLER MD Mar 29, 2019 22:25
[2019-03-30 05:38] VITALS: BP 97/60
[2019-03-30] MEDS: POLYETHYLENE GLYCOL 3350 17 GM PACKET. PO SCH (08:09)
[2019-03-30] MEDS: FERROUS SULFATE 325 MG TABLET. PO SCH ×2 (08:09→17:01)
[2019-03-30] MEDS: SERTRALINE 25 MG TABLET. PO SCH (08:09)
[2019-03-30] MEDS: SERTRALINE 100 MG TABLET. PO SCH (08:09)
[2019-03-30] MEDS: DOCUSATE SODIUM 100 MG CAPSULE PO SCH ×2 (08:09→19:23)
[2019-03-30] MEDS: APIXABAN 5 MG TABLET. PO SCH ×2 (08:10→19:23)
[2019-03-30] MEDS: levETIRAcetam 500 MG TABLET PO SCH ×2 (08:10→19:23)
[2019-03-30] MEDS: QUEtiapine 50 MG TABLET. PO SCH ×2 (08:10→13:03)
[2019-03-30] MEDS: LACTOBACILLUS RHAMNOSUS GG 1 CAPSULE. PO SCH ×2 (08:10→19:23)
[2019-03-30] MEDS: DICYCLOMINE HCL 20 MG TABLET PO SCH (08:10)
[2019-03-30] MEDS: HYDROcodone/APAP 10/325 1 TAB TABLET PO SCH ×2 (08:11→19:27)
[2019-03-30 08:31] VITALS: BP 134/76
[2019-03-30] MEDS: CARVEDILOL 12.5 MG TABLET PO SCH ×2 (08:32→16:27)
[2019-03-30] MEDS: SPIRONOLACTONE 25 MG TABLET PO SCH (08:33)
[2019-03-30] MEDS: ISOSORBIDE MONONITRATE ER 30 MG TAB.ER.24H PO SCH (08:33)
[2019-03-30] MEDS: amLODIPine BESYLATE 2.5 MG TABLET PO SCH (08:33)
[2019-03-30 16:04] VITALS: BP 95/58
[2019-03-30] MEDS: MIRTAZAPINE 30 MG TABLET PO SCH (19:23)
[2019-03-30] MEDS: QUEtiapine 100 MG TABLET. PO SCH (19:23)
--- NOTE | 2019-03-30 22:26 | PN ---
DATE: 03/28/2019 PSYCHIATRIC PROGRESS NOTE This late entry, 03/28, covers elements not covered in my initial note. SUBJECTIVE: I met with the patient in the evening of 03/28. The patient slept 6-3/4 hours previous night. She has a DVT left leg. We will defer to Dr. Rouse. She is otherwise cooperative, pleased that her was able to visit without the knowledge of her daughter. REVIEW OF SYSTEMS: Ambulation impaired, in wheelchair. No CV, , pulmonary, eye system symptoms on review. MENTAL STATUS EXAM: Reasonably oriented. Speech is coherent, has some latency. Abstraction fair, computation impaired, language function intact, attention span short. Mood and affect is improved. IMPRESSION: Unchanged from initial note. PLAN: No change from initial note. Social service staff is actively trying to secure placement. MAN Mamadou MILLER MD DR: DELILAH/nathan JOB#: [id number] / [id number]
--- NOTE | 2019-03-30 22:39 | PN ---
DATE: 03/29/2019 PSYCHIATRIC PROGRESS NOTE This late entry 03/29/2019 covers elements not covered in my initial note. SUBJECTIVE: I met with the patient in the evening of 03/29/2019. The patient slept 5-3/4 hours previous night. She remains somewhat withdrawn, states her did not visit her on 03/29/2019. REVIEW OF SYSTEMS: Ambulation impaired, in wheelchair. No CV, , pulmonary, eye, ENT system symptoms on review. MENTAL STATUS EXAM: Oriented reasonably. Speech is coherent, has some latency, at times a little pressured. Abstraction fair, computation impaired, language function intact, attention span short. Mood and affect remain somewhat anxious, labile, but improved. LABORATORY DATA: Reviewed. IMPRESSION: Unchanged from initial note. PLAN: No change from initial note. MAN Mamadou MILLER MD DR: DELILAH/nathan JOB#: [id number] / [id number]
[2019-03-31 05:38] VITALS: BP 100/54
[2019-03-31] MEDS: LACTOBACILLUS RHAMNOSUS GG 1 CAPSULE. PO SCH ×2 (07:48→19:21)
[2019-03-31] MEDS: DICYCLOMINE HCL 20 MG TABLET PO SCH (07:50)
[2019-03-31] MEDS: FERROUS SULFATE 325 MG TABLET. PO SCH ×2 (07:50→17:02)
[2019-03-31] MEDS: SERTRALINE 25 MG TABLET. PO SCH (07:51)
[2019-03-31] MEDS: HYDROcodone/APAP 10/325 1 TAB TABLET PO SCH ×2 (07:51→19:23)
[2019-03-31] MEDS: SPIRONOLACTONE 25 MG TABLET PO SCH (07:51)
[2019-03-31] MEDS: SERTRALINE 100 MG TABLET. PO SCH (07:51)
[2019-03-31] MEDS: levETIRAcetam 500 MG TABLET PO SCH ×2 (07:51→19:21)
[2019-03-31] MEDS: POLYETHYLENE GLYCOL 3350 17 GM PACKET. PO SCH (07:52)
[2019-03-31] MEDS: QUEtiapine 50 MG TABLET. PO SCH ×2 (07:52→14:04)
[2019-03-31] MEDS: DOCUSATE SODIUM 100 MG CAPSULE PO SCH ×2 (07:52→19:21)
[2019-03-31] MEDS: APIXABAN 5 MG TABLET. PO SCH ×2 (07:53→19:21)
--- NOTE | 2019-03-31 08:47 | PDOC ---
Exam Note: Alek Note: Late entry for DOS 03/30/2019. Please also refer to the separate dictated note~for this date of service dictated separately.~Patient seen individually. Discussed the patient with Nursing staff reviewed the chart.~Reviewed interim history and current functioning. Reviewed vital signs,~Labs/ Radiology~and current medications noted below. Continue current treatment with the changes noted in the dictated addendum note Assessment: Vital Signs/I&O: Vital Signs Date Time Temp Pulse Resp B/P (MAP) Pulse Ox O2 Delivery O2 Flow Rate FiO2 03/31/19 07:53 Room Air 91.0 03/31/19 05:38 97.9 67 18 100/54 (69) 90 I & O 03/30/19 03/30/19 03/31/19 14:59 22:59 06:59 Intake Total 720 ml 240 ml 120 ml Balance 720 ml 240 ml 120 ml Current Medications: I have reviewed the current psychotropics carefully including drug interactions. Risk benefit ratio favors no change other than as noted in my dictated progress note. Diagnosis: Problems: (1) Anxiety disorder (2) Dementia, vascular, with delusions (3) Dementia, vascular, with depression (4) Major depressive disorder, recurrent episode (5) Impulse control disorder (6) Mild cognitive impairment (7) Bipolar 1 disorder, mixed JUAN MILLER MD Mar 31, 2019 08:47
[2019-03-31] MEDS: CARVEDILOL 12.5 MG TABLET PO SCH ×2 (10:21→17:03)
[2019-03-31] MEDS: amLODIPine BESYLATE 2.5 MG TABLET PO SCH (10:23)
[2019-03-31] MEDS: ISOSORBIDE MONONITRATE ER 30 MG TAB.ER.24H PO SCH (10:28)
[2019-03-31 15:39] VITALS: BP 106/58
[2019-03-31] MEDS: MIRTAZAPINE 30 MG TABLET PO SCH (19:21)
[2019-03-31] MEDS: QUEtiapine 100 MG TABLET. PO SCH (19:21)
--- NOTE | 2019-03-31 22:21 | PDOC ---
Exam Note: Alek Note: Please also refer to the separate dictated note~for this date of service dictated separately.~Patient seen individually. Discussed the patient with Nursing staff reviewed the chart.~Reviewed interim history and current functioning. Reviewed vital signs,~Labs/ Radiology~and current medications noted below. Continue current treatment with the changes noted in the dictated addendum note Assessment: Vital Signs/I&O: Vital Signs Date Time Temp Pulse Resp B/P (MAP) Pulse Ox O2 Delivery O2 Flow Rate FiO2 03/31/19 19:23 Room Air 03/31/19 17:03 80 106/58 03/31/19 15:39 98.8 20 96 03/31/19 10:29 91.0 I & O 03/30/19 03/30/19 03/31/19 15:00 23:00 07:00 Intake Total 720 ml 240 ml 120 ml Balance 720 ml 240 ml 120 ml Current Medications: I have reviewed the current psychotropics carefully including drug interactions. Risk benefit ratio favors no change other than as noted in my dictated progress note. Diagnosis: Problems: (1) Anxiety disorder (2) Dementia, vascular, with delusions (3) Dementia, vascular, with depression (4) Major depressive disorder, recurrent episode (5) Impulse control disorder (6) Mild cognitive impairment (7) Bipolar 1 disorder, mixed JUAN MILLER MD Mar 31, 2019 22:21
--- NOTE | 2019-03-31 23:39 | PN ---
DATE: 03/30/2019 This late entry 03/30/2019 covers elements not covered in my initial note. SUBJECTIVE: I met with the patient in the evening of 03/30/2019. The patient slept 8 hours previous night. She has had no behaviors. Denies suicidal ideation. Remains a little anxious, but states she is hopeful she will be able to go to a nursing facility close to where her family is so that her can visit her regularly. REVIEW OF SYSTEMS: Ambulation impaired, in wheelchair. No CV, , pulmonary, eye system symptoms on review. MENTAL STATUS EXAM: Reasonably oriented. Speech is coherent, at times a little pressured. Abstraction fair, computation impaired, language function intact, attention span short. Mood and affect somewhat anxious, labile at times, but improved. LABORATORY DATA: Reviewed. IMPRESSION: Unchanged from initial note. PLAN: No change from initial note. MAN Mamadou MILLER MD DR: DELILAH/nathan JOB#: [id number] / [id number]
[2019-04-01 06:22] VITALS: BP 111/70
[2019-04-01] MEDS: ISOSORBIDE MONONITRATE ER 30 MG TAB.ER.24H PO SCH (09:06)
[2019-04-01] MEDS: levETIRAcetam 500 MG TABLET PO SCH ×2 (09:06→19:25)
[2019-04-01] MEDS: DOCUSATE SODIUM 100 MG CAPSULE PO SCH ×2 (09:07→19:26)
[2019-04-01] MEDS: SERTRALINE 25 MG TABLET. PO SCH (09:07)
[2019-04-01] MEDS: FERROUS SULFATE 325 MG TABLET. PO SCH ×2 (09:07→17:32)
[2019-04-01] MEDS: amLODIPine BESYLATE 2.5 MG TABLET PO SCH (09:07)
[2019-04-01] MEDS: QUEtiapine 50 MG TABLET. PO SCH ×2 (09:07→14:14)
[2019-04-01] MEDS: SERTRALINE 100 MG TABLET. PO SCH (09:07)
[2019-04-01] MEDS: APIXABAN 5 MG TABLET. PO SCH ×2 (09:08→19:25)
[2019-04-01] MEDS: DICYCLOMINE HCL 20 MG TABLET PO SCH (09:08)
[2019-04-01] MEDS: LACTOBACILLUS RHAMNOSUS GG 1 CAPSULE. PO SCH ×2 (09:08→19:26)
[2019-04-01] MEDS: SPIRONOLACTONE 25 MG TABLET PO SCH (09:08)
[2019-04-01] MEDS: CARVEDILOL 12.5 MG TABLET PO SCH ×3 (09:08→17:35)
[2019-04-01] MEDS: POLYETHYLENE GLYCOL 3350 17 GM PACKET. PO SCH (09:08)
[2019-04-01] MEDS: HYDROcodone/APAP 10/325 1 TAB TABLET PO SCH ×2 (09:09→19:27)
[2019-04-01 15:46] VITALS: BP 96/59
[2019-04-01] MEDS: QUEtiapine 100 MG TABLET. PO SCH (19:26)
[2019-04-01] MEDS: MIRTAZAPINE 30 MG TABLET PO SCH (19:26)
--- NOTE | 2019-04-01 21:53 | PDOC ---
Exam Note: Alek Note: Please also refer to the separate dictated note~for this date of service dictated separately.~Patient seen individually. Discussed the patient with Nursing staff reviewed the chart.~Reviewed interim history and current functioning. Reviewed vital signs,~Labs/ Radiology~and current medications noted below. Continue current treatment with the changes noted in the dictated addendum note Assessment: Vital Signs/I&O: Vital Signs Date Time Temp Pulse Resp B/P (MAP) Pulse Ox O2 Delivery O2 Flow Rate FiO2 04/01/19 17:35 66 111/70 04/01/19 15:46 97.9 16 94 03/31/19 22:37 Room Air 03/31/19 10:29 91.0 I & O 03/31/19 03/31/19 04/01/19 14:59 22:59 06:59 Intake Total 600 ml 240 ml 120 ml Balance 600 ml 240 ml 120 ml Current Medications: I have reviewed the current psychotropics carefully including drug interactions. Risk benefit ratio favors no change other than as noted in my dictated progress note. Diagnosis: Problems: (1) Anxiety disorder (2) Dementia, vascular, with delusions (3) Dementia, vascular, with depression (4) Major depressive disorder, recurrent episode (5) Impulse control disorder (6) Mild cognitive impairment (7) Bipolar 1 disorder, mixed JUAN MILLER MD Apr 01, 2019 21:53
--- NOTE | 2019-04-02 00:38 | PN ---
DATE: 03/31/2019 PSYCHIATRIC PROGRESS NOTE This late entry, 03/31/2019, covers elements not covered in my initial note. SUBJECTIVE: I met with the patient in the evening of 03/31/2019. The patient slept 7 hours previous night. She was cooperative last evening during the day on 03/31/2019, quite pleasant, compliant, attending groups. REVIEW OF SYSTEMS: Ambulation impaired, in wheelchair. No CV, , pulmonary, eye, ENT system symptoms on review. MENTAL STATUS EXAM: Oriented to herself and situation. Speech is coherent, has some latency. Abstraction fair, computation impaired, language function intact, attention span short. Mood and affect showing improvement. No suicidal ideation. LABORATORY DATA: Reviewed. IMPRESSION: Unchanged from initial note. PLAN: No change from initial note. MAN Mamadou MILLER MD DR: DELILAH/nathan JOB#: [id number] / [id number]
[2019-04-02 06:05] VITALS: BP 106/51
[2019-04-02] MEDS: QUEtiapine 50 MG TABLET. PO SCH ×2 (08:43→17:07)
[2019-04-02] MEDS: LACTOBACILLUS RHAMNOSUS GG 1 CAPSULE. PO SCH ×2 (08:44→19:26)
[2019-04-02] MEDS: SERTRALINE 100 MG TABLET. PO SCH (08:44)
[2019-04-02] MEDS: HYDROcodone/APAP 10/325 1 TAB TABLET PO SCH ×2 (08:44→19:29)
[2019-04-02] MEDS: SERTRALINE 25 MG TABLET. PO SCH (08:44)
[2019-04-02] MEDS: DOCUSATE SODIUM 100 MG CAPSULE PO SCH ×2 (08:44→19:26)
[2019-04-02] MEDS: levETIRAcetam 500 MG TABLET PO SCH ×2 (08:45→19:27)
[2019-04-02] MEDS: ISOSORBIDE MONONITRATE ER 30 MG TAB.ER.24H PO SCH (08:45)
[2019-04-02] MEDS: DICYCLOMINE HCL 20 MG TABLET PO SCH (08:45)
[2019-04-02] MEDS: SPIRONOLACTONE 25 MG TABLET PO SCH (08:45)
[2019-04-02] MEDS: FERROUS SULFATE 325 MG TABLET. PO SCH ×3 (09:18→17:07)
[2019-04-02] MEDS: POLYETHYLENE GLYCOL 3350 17 GM PACKET. PO SCH ×2 (09:19→10:19)
[2019-04-02] MEDS: amLODIPine BESYLATE 2.5 MG TABLET PO SCH (09:19)
[2019-04-02] MEDS: APIXABAN 5 MG TABLET. PO SCH ×2 (09:19→19:26)
[2019-04-02] MEDS: CARVEDILOL 12.5 MG TABLET PO SCH ×2 (09:19→17:07)
[2019-04-02 15:45] VITALS: BP 118/66
[2019-04-02] MEDS: MIRTAZAPINE 30 MG TABLET PO SCH (19:26)
[2019-04-02] MEDS: QUEtiapine 100 MG TABLET. PO SCH (19:26)
--- NOTE | 2019-04-02 22:04 | PDOC ---
Exam Note: Alek Note: Please also refer to the separate dictated note~for this date of service dictated separately.~Patient seen individually. Discussed the patient with Nursing staff reviewed the chart.~Reviewed interim history and current functioning. Reviewed vital signs,~Labs/ Radiology~and current medications noted below. Continue current treatment with the changes noted in the dictated addendum note Assessment: Vital Signs/I&O: Vital Signs Date Time Temp Pulse Resp B/P (MAP) Pulse Ox O2 Delivery O2 Flow Rate FiO2 04/02/19 20:59 18 94 04/02/19 17:07 75 118/66 04/02/19 15:45 97.9 Room Air 03/31/19 10:29 91.0 I & O 04/01/19 04/01/19 04/02/19 15:00 23:00 07:00 Intake Total 600 ml 360 ml 120 ml Balance 600 ml 360 ml 120 ml Current Medications: I have reviewed the current psychotropics carefully including drug interactions. Risk benefit ratio favors no change other than as noted in my dictated progress note. Diagnosis: Problems: (1) Anxiety disorder (2) Dementia, vascular, with delusions (3) Dementia, vascular, with depression (4) Major depressive disorder, recurrent episode (5) Impulse control disorder (6) Mild cognitive impairment (7) Bipolar 1 disorder, mixed JUAN MILLER MD Apr 02, 2019 22:04
[2019-04-03 05:16] VITALS: BP 132/82
[2019-04-03] MEDS: DOCUSATE SODIUM 100 MG CAPSULE PO SCH ×2 (09:32→19:50)
[2019-04-03] MEDS: levETIRAcetam 500 MG TABLET PO SCH ×2 (09:32→19:50)
[2019-04-03] MEDS: CARVEDILOL 12.5 MG TABLET PO SCH ×2 (09:32→18:01)
[2019-04-03] MEDS: DICYCLOMINE HCL 20 MG TABLET PO SCH (09:32)
[2019-04-03] MEDS: amLODIPine BESYLATE 2.5 MG TABLET PO SCH (09:32)
[2019-04-03] MEDS: SERTRALINE 25 MG TABLET. PO SCH (09:33)
[2019-04-03] MEDS: QUEtiapine 50 MG TABLET. PO SCH ×2 (09:33→13:14)
[2019-04-03] MEDS: SPIRONOLACTONE 25 MG TABLET PO SCH (09:33)
[2019-04-03] MEDS: SERTRALINE 100 MG TABLET. PO SCH (09:33)
[2019-04-03] MEDS: FERROUS SULFATE 325 MG TABLET. PO SCH ×2 (09:33→18:01)
[2019-04-03] MEDS: LACTOBACILLUS RHAMNOSUS GG 1 CAPSULE. PO SCH ×2 (09:33→19:50)
[2019-04-03] MEDS: ISOSORBIDE MONONITRATE ER 30 MG TAB.ER.24H PO SCH (09:34)
[2019-04-03] MEDS: HYDROcodone/APAP 10/325 1 TAB TABLET PO SCH ×2 (09:34→19:51)
[2019-04-03] MEDS: APIXABAN 5 MG TABLET. PO SCH ×2 (09:34→19:51)
[2019-04-03] MEDS: POLYETHYLENE GLYCOL 3350 17 GM PACKET. PO SCH (10:14)
[2019-04-03] MEDS: ACETAMINOPHEN 325 MG TABLET PO PRN (13:14)
[2019-04-03 15:25] VITALS: BP 107/55
[2019-04-03 15:27] VITALS: BP 107/55
[2019-04-03] MEDS: ONDANSETRON ODT 4 MG TAB.RAPDIS PO PRN (15:57)
[2019-04-03] MEDS: QUEtiapine 100 MG TABLET. PO SCH (19:51)
[2019-04-03] MEDS: MIRTAZAPINE 30 MG TABLET PO SCH (19:51)
--- NOTE | 2019-04-03 22:09 | PDOC ---
Exam Note: Alek Note: Please also refer to the separate dictated note~for this date of service dictated separately.~Patient seen individually. Discussed the patient with Nursing staff reviewed the chart.~Reviewed interim history and current functioning. Reviewed vital signs,~Labs/ Radiology~and current medications noted below. Continue current treatment with the changes noted in the dictated addendum note Assessment: Vital Signs/I&O: Vital Signs Date Time Temp Pulse Resp B/P (MAP) Pulse Ox O2 Delivery O2 Flow Rate FiO2 04/03/19 21:01 18 98 04/03/19 18:01 67 107/55 04/03/19 15:27 97.6 04/03/19 05:16 Room Air 03/31/19 10:29 91.0 I & O 04/02/19 04/02/19 04/03/19 15:00 23:00 07:00 Intake Total 720 ml 480 ml 120 ml Balance 720 ml 480 ml 120 ml Current Medications: I have reviewed the current psychotropics carefully including drug interactions. Risk benefit ratio favors no change other than as noted in my dictated progress note. Diagnosis: Problems: (1) Anxiety disorder (2) Dementia, vascular, with delusions (3) Dementia, vascular, with depression (4) Major depressive disorder, recurrent episode (5) Impulse control disorder (6) Mild cognitive impairment (7) Bipolar 1 disorder, mixed JUAN MILLER MD Apr 03, 2019 22:09
--- NOTE | 2019-04-04 00:05 | PN ---
DATE: 04/01/2019 PSYCHIATRIC PROGRESS NOTE This late entry of 04/01/2019 covers the elements not covered in my initial note. SUBJECTIVE: I met with the patient in the evening of 04/01/2019. The patient slept 6-3/4 hours previous night. She woke up at 9:00 a.m. Her and daughter visited during the day. She has been quite appropriate. No suicidal ideation. REVIEW OF SYSTEMS: Ambulation impaired, in wheelchair. No CV, , pulmonary, eye, ENT system symptoms on review. MENTAL STATUS EXAM: Oriented to herself and situation. Speech is coherent, has some latency. Abstraction fair, computation impaired, language function intact, attention span short. Mood and affect still withdrawn. No suicidal ideation. Otherwise, mood is better. LABORATORY DATA: Reviewed. IMPRESSION: Unchanged from initial note. PLAN: No change from initial note. MAN Mamadou MILLER MD DR: DELILAH/nathan JOB#: [id number] / [id number]
--- NOTE | 2019-04-04 00:24 | PN ---
DATE: 04/02/2019 PSYCHIATRIC PROGRESS NOTE This late entry of 04/02/2019 covers elements not covered in my initial note. SUBJECTIVE: I met with the patient in the evening of 04/02/2019. Staffed at a treatment team meeting with the entire team in the morning. The patient slept 7 hours average. Appetite 75-100%. She is fairly cooperative. Denies suicidal ideation. REVIEW OF SYSTEMS: Ambulation impaired, in wheelchair. No CV, , pulmonary, eye system symptoms on review. She had many questions about discharge plans that addressed with her individually and expectations at the next facility including reaching out for assistance from staff if she has suicidal ideation rather than attempting anything which is what happened the last time. She has understanding of this. MENTAL STATUS EXAM: Reasonably oriented. Speech is coherent, has some latency. Abstraction fair, computation impaired, language function intact. Mood and affect still withdrawn. LABORATORY DATA: Reviewed. IMPRESSION: Unchanged from initial note. PLAN: No change from initial note. JUAN MILLER MD DR: DELILAH/nathan JOB#: [id number] / [id number]
[2019-04-04 05:38] VITALS: BP 105/71
[2019-04-04] MEDS: CARVEDILOL 12.5 MG TABLET PO SCH ×2 (08:28→17:14)
[2019-04-04] MEDS: FERROUS SULFATE 325 MG TABLET. PO SCH ×2 (08:28→17:14)
[2019-04-04] MEDS: APIXABAN 5 MG TABLET. PO SCH ×2 (08:29→19:10)
[2019-04-04] MEDS: DICYCLOMINE HCL 20 MG TABLET PO SCH (08:29)
[2019-04-04] MEDS: LACTOBACILLUS RHAMNOSUS GG 1 CAPSULE. PO SCH ×2 (08:29→19:10)
[2019-04-04] MEDS: SPIRONOLACTONE 25 MG TABLET PO SCH (08:29)
[2019-04-04] MEDS: DOCUSATE SODIUM 100 MG CAPSULE PO SCH ×2 (08:29→19:10)
[2019-04-04] MEDS: levETIRAcetam 500 MG TABLET PO SCH ×2 (08:30→19:13)
[2019-04-04] MEDS: ISOSORBIDE MONONITRATE ER 30 MG TAB.ER.24H PO SCH (08:30)
[2019-04-04] MEDS: HYDROcodone/APAP 10/325 1 TAB TABLET PO SCH ×2 (08:31→19:13)
[2019-04-04] MEDS: POLYETHYLENE GLYCOL 3350 17 GM PACKET. PO SCH (08:31)
[2019-04-04] MEDS: SERTRALINE 100 MG TABLET. PO SCH (08:32)
[2019-04-04] MEDS: amLODIPine BESYLATE 2.5 MG TABLET PO SCH (08:32)
[2019-04-04] MEDS: QUEtiapine 50 MG TABLET. PO SCH ×2 (08:32→14:07)
[2019-04-04] MEDS: SERTRALINE 25 MG TABLET. PO SCH (08:32)
[2019-04-04] MEDS: CHOLECALCIFEROL (VITAMIN D3) 50,000 UNIT CAPSULE PO SCH (08:33)
[2019-04-04 09:54] LABS: BASO % 0 % (0-3); EOS # 0.1 x10^3/uL (0.0-0.7); EOS % 3 % (0-3); HEMATOCRIT 36.2 % (36.0-47.0); LYMPH # 0.6 x10^3/uL (1.0-4.8); LYMPH % 12 % (24-48); MEAN CORPUSCULAR HEMOGLOBIN 31 pg (25-35); MEAN CORPUSCULAR HGB CONC 33 g/dL (31-37); MEAN CORPUSCULAR VOLUME 93 fL (79-100); MONO # 0.3 x10^3/uL (0.0-1.1); MONO % 6 % (0-9); NEUT # 3.9 x10^3uL (1.8-7.7); NEUT % 80 % (31-73); PLATELET COUNT 138 x10^3/uL (140-400); RED BLOOD COUNT 3.89 x10^6/uL (3.50-5.40); RED CELL DISTRIBUTION WIDTH 14.4 % (11.5-14.5); WHITE BLOOD COUNT 4.9 x10^3/uL (4.0-11.0)
[2019-04-04 10:01] LABS: ALBUMIN 3.2 g/dL (3.4-5.0); ALBUMIN/GLOBULIN RATIO 0.8 (1.0-1.7); CALCIUM 8.5 mg/dL (8.5-10.1); CREATININE 0.9 mg/dL (0.6-1.0); GFR 59.9; TOTAL BILIRUBIN 0.2 mg/dL (0.2-1.0); TOTAL PROTEIN 7.1 g/dL (6.4-8.2)
[2019-04-04 15:47] VITALS: BP 118/64
[2019-04-04] MEDS: MIRTAZAPINE 30 MG TABLET PO SCH (19:11)
[2019-04-04] MEDS: QUEtiapine 100 MG TABLET. PO SCH (19:11)
--- NOTE | 2019-04-04 21:58 | PDOC ---
Exam Note: Alek Note: Please also refer to the separate dictated note~for this date of service dictated separately.~Patient seen individually. Discussed the patient with Nursing staff reviewed the chart.~Reviewed interim history and current functioning. Reviewed vital signs,~Labs/ Radiology~and current medications noted below. Continue current treatment with the changes noted in the dictated addendum note Assessment: Vital Signs/I&O: Vital Signs Date Time Temp Pulse Resp B/P (MAP) Pulse Ox O2 Delivery O2 Flow Rate FiO2 04/04/19 21:16 18 95 04/04/19 17:14 68 118/64 04/04/19 15:47 97.4 04/03/19 05:16 Room Air 03/31/19 10:29 91.0 I & O 04/03/19 04/03/19 04/04/19 15:00 23:00 07:00 Intake Total 480 ml 240 ml 240 ml Balance 480 ml 240 ml 240 ml Labs: Laboratory Tests Test 04/04/19 09:30 White Blood Count 4.9 x10^3/uL (4.0-11.0) Red Blood Count 3.89 x10^6/uL (3.50-5.40) Hemoglobin 12.0 g/dL (12.0-15.5) Hematocrit 36.2 % (36.0-47.0) Mean Corpuscular Volume 93 fL (79-100) Mean Corpuscular Hemoglobin 31 pg (25-35) Mean Corpuscular Hemoglobin Concent 33 g/dL (31-37) Red Cell Distribution Width 14.4 % (11.5-14.5) Platelet Count 138 x10^3/uL (140-400) L Neutrophils (%) (Auto) 80 % (31-73) H Lymphocytes (%) (Auto) 12 % (24-48) L Monocytes (%) (Auto) 6 % (0-9) Eosinophils (%) (Auto) 3 % (0-3) Basophils (%) (Auto) 0 % (0-3) Neutrophils # (Auto) 3.9 x10^3uL (1.8-7.7) Lymphocytes # (Auto) 0.6 x10^3/uL (1.0-4.8) L Monocytes # (Auto) 0.3 x10^3/uL (0.0-1.1) Eosinophils # (Auto) 0.1 x10^3/uL (0.0-0.7) Basophils # (Auto) 0.0 x10^3/uL (0.0-0.2) Sodium Level 141 mmol/L (136-145) Potassium Level 4.0 mmol/L (3.5-5.1) Chloride Level 105 mmol/L (98-107) Carbon Dioxide Level 28 mmol/L (21-32) Anion Gap 8 (6-14) Blood Urea Nitrogen 11 mg/dL (7-20) Creatinine 0.9 mg/dL (0.6-1.0) Estimated GFR (Cockcroft-Gault) 59.9 BUN/Creatinine Ratio 12 (6-20) Glucose Level 144 mg/dL (70-99) H Calcium Level 8.5 mg/dL (8.5-10.1) Total Bilirubin 0.2 mg/dL (0.2-1.0) Aspartate Amino Transferase (AST) 11 U/L (15-37) L Alanine Aminotransferase (ALT) 7 U/L (14-59) L Alkaline Phosphatase 88 U/L (46-116) Total Protein 7.1 g/dL (6.4-8.2) Albumin 3.2 g/dL (3.4-5.0) L Albumin/Globulin Ratio 0.8 (1.0-1.7) L Current Medications: I have reviewed the current psychotropics carefully including drug interactions. Risk benefit ratio favors no change other than as noted in my dictated progress note. Diagnosis: Problems: (1) Anxiety disorder (2) Dementia, vascular, with delusions (3) Dementia, vascular, with depression (4) Major depressive disorder, recurrent episode (5) Impulse control disorder (6) Mild cognitive impairment (7) Bipolar 1 disorder, mixed JUAN MILLER MD Apr 04, 2019 21:58
[2019-04-05 06:35] VITALS: BP 100/64
[2019-04-05] MEDS: LACTOBACILLUS RHAMNOSUS GG 1 CAPSULE. PO SCH ×2 (08:25→20:56)
[2019-04-05] MEDS: levETIRAcetam 500 MG TABLET PO SCH ×2 (08:25→20:57)
[2019-04-05] MEDS: FERROUS SULFATE 325 MG TABLET. PO SCH ×2 (08:25→17:14)
[2019-04-05] MEDS: CARVEDILOL 12.5 MG TABLET PO SCH ×2 (08:25→17:14)
[2019-04-05] MEDS: SPIRONOLACTONE 25 MG TABLET PO SCH (08:25)
[2019-04-05] MEDS: DOCUSATE SODIUM 100 MG CAPSULE PO SCH ×2 (08:25→20:57)
[2019-04-05] MEDS: DICYCLOMINE HCL 20 MG TABLET PO SCH (08:25)
[2019-04-05] MEDS: APIXABAN 5 MG TABLET. PO SCH ×2 (08:25→20:57)
[2019-04-05] MEDS: SERTRALINE 100 MG TABLET. PO SCH (08:26)
[2019-04-05] MEDS: QUEtiapine 50 MG TABLET. PO SCH ×2 (08:26→14:01)
[2019-04-05] MEDS: SERTRALINE 25 MG TABLET. PO SCH (08:26)
[2019-04-05] MEDS: HYDROcodone/APAP 10/325 1 TAB TABLET PO SCH ×2 (08:27→20:56)
[2019-04-05] MEDS: POLYETHYLENE GLYCOL 3350 17 GM PACKET. PO SCH (09:00)
[2019-04-05] MEDS: ISOSORBIDE MONONITRATE ER 30 MG TAB.ER.24H PO SCH (09:00)
[2019-04-05] MEDS: amLODIPine BESYLATE 2.5 MG TABLET PO SCH (09:00)
[2019-04-05 16:02] VITALS: BP 149/75
[2019-04-05] MEDS: MIRTAZAPINE 30 MG TABLET PO SCH (20:56)
[2019-04-05] MEDS: QUEtiapine 100 MG TABLET. PO SCH (20:56)
--- NOTE | 2019-04-05 21:02 | PDOC ---
Exam Note: Alek Note: Please also refer to the separate dictated note~for this date of service dictated separately.~Patient seen individually. Discussed the patient with Nursing staff reviewed the chart.~Reviewed interim history and current functioning. Reviewed vital signs,~Labs/ Radiology~and current medications noted below. Continue current treatment with the changes noted in the dictated addendum note Assessment: Vital Signs/I&O: Vital Signs Date Time Temp Pulse Resp B/P (MAP) Pulse Ox O2 Delivery O2 Flow Rate FiO2 04/05/19 17:14 74 149/75 04/05/19 16:02 97.2 16 96 Room Air 03/31/19 10:29 91.0 I & O 04/04/19 04/04/19 04/05/19 14:59 22:59 06:59 Intake Total 480 ml 240 ml 120 ml Balance 480 ml 240 ml 120 ml Current Medications: I have reviewed the current psychotropics carefully including drug interactions. Risk benefit ratio favors no change other than as noted in my dictated progress note. Diagnosis: Problems: (1) Anxiety disorder (2) Dementia, vascular, with delusions (3) Dementia, vascular, with depression (4) Major depressive disorder, recurrent episode (5) Impulse control disorder (6) Mild cognitive impairment (7) Bipolar 1 disorder, mixed JUAN MILLER MD Apr 05, 2019 21:02
--- NOTE | 2019-04-05 22:19 | PN ---
DATE: 04/03/2019 PSYCHIATRIC PROGRESS NOTE. This late entry of 04/03/2019 covers the elements not covered in my initial note. SUBJECTIVE: I met with the patient in the evening of 04/03/2019. The patient slept 5-1/2 hours previous night. She remains a little withdrawn, but no suicidal ideation. REVIEW OF SYSTEMS: Ambulation impaired, in wheelchair. No CV, , pulmonary, eye system symptoms on review. She is quite verbal individually. MENTAL STATUS EXAM: Reasonably oriented. Speech coherent, abstraction fair, computation impaired, language function intact. Mood and affect improved. No suicidal ideation. LABORATORY DATA: Reviewed. IMPRESSION: Unchanged from initial note. PLAN: No change from initial note. MAN Mamadou MILLER MD DR: DELILAH/nathan JOB#: [id number] / [id number]
--- NOTE | 2019-04-05 22:22 | PN ---
DATE: 04/04/2019 PSYCHIATRIC PROGRESS NOTE. This late entry of 04/04/2019 covers the elements not covered in my initial note. SUBJECTIVE: I met with the patient in the evening of 04/04/2019. The patient slept 6-1/4 hours previous night. The patient remains a little withdrawn, but calmer. No suicidal ideation. REVIEW OF SYSTEMS: Ambulation impaired, in wheelchair. No CV, , pulmonary, eye system symptoms on review. MENTAL STATUS EXAM: Reasonably oriented. Speech coherent, abstraction fair, computation impaired, language function intact. Mood and affect is improved. We had a lengthy discussion about discharge on Saturday and if she were to have suicidal ideation, the appropriate way to be able to share this rather than trying to hurt herself. She is very clear in her description that she has no suicidal ideation, knows how to express her feelings without resorting to attempt to hurt herself. Very appreciative of the stay here, looking forward to transitioning closer to where her family can visit regularly. LABORATORY DATA: Reviewed. IMPRESSION: Unchanged from initial note. PLAN: No change from initial note. MAN Mamadou MILLER MD DR: DELILAH/nathan JOB#: [id number] / [id number]
[2019-04-06] MEDS ORDERED: ISOS30TA4 PO (01:41)
[2019-04-06] MEDS ORDERED: ACET325T9 PO (01:45)
[2019-04-06] MEDS ORDERED: APIX5TAB3 PO (01:46)
[2019-04-06] MEDS ORDERED: CHOL500021 PO (01:47)
[2019-04-06] MEDS ORDERED: MAGN2400 PO (01:54)
[2019-04-06] MEDS ORDERED: MAG-83 PO (01:54)
[2019-04-06] MEDS ORDERED: METH29OI TP (01:55)
[2019-04-06] MEDS ORDERED: ONDA4TAB12 PO (01:55)
[2019-04-06] MEDS ORDERED: SERT100T PO (01:56)
[2019-04-06] MEDS ORDERED: SERT25TA PO (01:56)
[2019-04-06 06:32] VITALS: BP 133/83
[2019-04-06] MEDS: POLYETHYLENE GLYCOL 3350 17 GM PACKET. PO SCH (07:58)
[2019-04-06] MEDS: levETIRAcetam 500 MG TABLET PO SCH (07:58)
[2019-04-06] MEDS: QUEtiapine 50 MG TABLET. PO SCH (07:58)
[2019-04-06] MEDS: DICYCLOMINE HCL 20 MG TABLET PO SCH (07:58)
[2019-04-06] MEDS: amLODIPine BESYLATE 2.5 MG TABLET PO SCH (07:58)
[2019-04-06] MEDS: APIXABAN 5 MG TABLET. PO SCH (07:58)
[2019-04-06] MEDS: SERTRALINE 25 MG TABLET. PO SCH (07:59)
[2019-04-06] MEDS: DOCUSATE SODIUM 100 MG CAPSULE PO SCH (07:59)
[2019-04-06] MEDS: FERROUS SULFATE 325 MG TABLET. PO SCH (07:59)
[2019-04-06] MEDS: SERTRALINE 100 MG TABLET. PO SCH (07:59)
[2019-04-06] MEDS: LACTOBACILLUS RHAMNOSUS GG 1 CAPSULE. PO SCH (07:59)
[2019-04-06 08:00] VITALS: BP 133/83
[2019-04-06] MEDS: ISOSORBIDE MONONITRATE ER 30 MG TAB.ER.24H PO SCH (08:00)
[2019-04-06] MEDS: CARVEDILOL 12.5 MG TABLET PO SCH (08:00)
[2019-04-06] MEDS: SPIRONOLACTONE 25 MG TABLET PO SCH (08:00)
[2019-04-06] MEDS: HYDROcodone/APAP 10/325 1 TAB TABLET PO SCH (08:02)
--- NOTE | 2019-04-06 20:27 | DS ---
DATE OF DISCHARGE: 04/06/2019 DISCHARGE SUMMARY AND PSYCHIATRIC PROGRESS NOTE. This note covers the elements not covered in my initial note of 04/06/2019. REASON FOR ADMISSION: Please refer to the admission history for details. Briefly, the patient is an 83-year-old female referred to us from [facility] Room where she presented from [facility], referred by Dr. Dominguez, her psychiatrist and her primary care physician after she wrapped a call light cord around her neck to attempt to commit suicide. She denied suicidal ideation, but admitted to thinking about daily. She throws herself out of the wheelchair. She has been increasingly anxious, depressed. Admits to feeling hopeless, worthless and frustrated when family do not respond to her as quickly as she would like for them to. She had failed outpatient psychiatric interventions. SIGNIFICANT FINDINGS AND CLINICAL COURSE: Following admission, the patient was seen daily individually by myself from a psychiatric standpoint, medical followup with Dr. Rouse. The patient remained depressed, anxious initially. Adjustments were made in her psychotropics and she responded to a combination of Remeron 30 mg at bedtime, Seroquel 50 mg b.i.d. and 100 mg at bedtime, Zoloft 125 mg a day. She denied suicidal ideation quite a few days prior to final discharge and the discharge was postponed because [facility] would not take her back and other facility rejected her. The Social Service staff worked diligently and in a very focused manner to find her a facility and she was finally able to transfer to [facility] on 04/06/2019. REVIEW OF SYSTEMS: Prior to discharge on 04/06/2019, ambulation impaired, in wheelchair. No CV, , pulmonary, eye, ENT system symptoms on review. MENTAL STATUS EXAM: Oriented reasonably. Speech has some latency, coherent. Abstraction fair, computation impaired, language function intact, attention span short. Mood and affect were improved. No suicidal ideation at discharge. FINAL DIAGNOSES: Major depressive disorder, recurrent with psychotic features, in partial remission; anxiety disorder, unspecified; mild cognitive impairment; impulse control disorder. Rest unchanged from admission. DISCHARGE MEDICATIONS: Please refer to the [facility]AD. DISCHARGE INSTRUCTIONS: Outpatient psychiatric and medical followup at the care home. Time for discharge day management greater than 30 minutes. MAN Mamadou MILLER MD DR: Yulissa JOB#: [id number] / [id number]
--- NOTE | 2019-04-06 22:15 | PDOC ---
Exam Note: Alek Note: Please also refer to the separate dictated note~for this date of service dictated separately.~Patient seen individually. Discussed the patient with Nursing staff reviewed the chart.~Reviewed interim history and current functioning. Reviewed vital signs,~Labs/ Radiology~and current medications noted below. Continue current treatment with the changes noted in the dictated addendum note Assessment: Vital Signs/I&O: Vital Signs Date Time Temp Pulse Resp B/P (MAP) Pulse Ox O2 Delivery O2 Flow Rate FiO2 04/06/19 10:44 16 92 Room Air 04/06/19 08:02 69 133/83 04/06/19 06:32 97.6 03/31/19 10:29 91.0 I & O 04/05/19 04/05/19 04/06/19 15:00 23:00 07:00 Intake Total 840 ml 360 ml 100 ml Balance 840 ml 360 ml 100 ml Current Medications: I have reviewed the current psychotropics carefully including drug interactions. Risk benefit ratio favors no change other than as noted in my dictated progress note. Diagnosis: Problems: (1) Anxiety disorder (2) Dementia, vascular, with delusions (3) Dementia, vascular, with depression (4) Major depressive disorder, recurrent episode (5) Impulse control disorder (6) Mild cognitive impairment (7) Bipolar 1 disorder, mixed JUAN MILLER MD Apr 06, 2019 22:15
--- NOTE | 2019-04-06 23:27 | PN ---
DATE: 04/05/2019 PROGRESS NOTE This late entry 04/05/2019 covers elements not covered in my initial note. SUBJECTIVE: I met with the patient evening of 04/05/2019. The patient slept 6-3/4 hours previous night. She has overall had a good day. She has been cooperative. Denies suicidal ideation. REVIEW OF SYSTEMS: Ambulation impaired, in wheelchair. No CV, , pulmonary, eye system symptoms on review. MENTAL STATUS EXAMINATION: Oriented reasonably. Speech is coherent, abstraction fair, computation impaired, language function intact, attention span short. Mood and affect is improved. No suicidal ideation and we discussed at length about ways to express her mood and frustrations at the nursing facility rather than resorting to acts of trying to hurt herself and she is very willing forthcoming interactive with this. LABORATORY DATA: Reviewed. IMPRESSION: Major depressive disorder, recurrent, in partial remission. Rest unchanged. PLAN: Continue current psychotropics and possible transition to senior care in [place], [place] on 04/06/2019. MAN Mamadou MILLER MD DR: DELILAH/nathan JOB#: [id number] / [id number]
== END 2019-04-06 12:20 | DRG 885 ==
LOC: GEROPSY 03-07
PROVIDERS: ADMIT Psychiatry & Neurology Psychiatry; ATTEND Psychiatry & Neurology Psychiatry
DX: F33.3 Major depressive disorder, recurrent, severe with psychotic symptoms (principal); I69.354 Hemiplegia and hemiparesis following cerebral infarction affecting left non-dominant side; R45.851 Suicidal ideations; F01.51 Vascular dementia, unspecified severity, with behavioral disturbance; F41.9 Anxiety disorder, unspecified; F63.9 Impulse disorder, unspecified; B19.20 Unspecified viral hepatitis C without hepatic coma; K21.9 Gastro-esophageal reflux disease without esophagitis; I10 Essential (primary) hypertension; K58.9 Irritable bowel syndrome, unspecified; S81.811A Laceration without foreign body, right lower leg, initial encounter; Z66 Do not resuscitate; Z79.01 Long term (current) use of anticoagulants; Z79.899 Other long term (current) drug therapy; Z85.038 Personal history of other malignant neoplasm of large intestine; Z91.5 Personal history of self-harm; Z88.8 Allergy status to other drugs, medicaments and biological substances; Z91.048 Other nonmedicinal substance allergy status; W18.39XA Other fall on same level, initial encounter; Y93.89 Activity, other specified; Y92.89 Other specified places as the place of occurrence of the external cause; Y99.8 Other external cause status
CPT/HCPCS: 36415; 80053; 80061; 81001; 82306; 83036; 83540; 83550; 83735; 85025; 86592; 87086; 87186; 93970; Q0162